=== PATIENT | male | born 1960 | race Caucasian/White ===

== ENCOUNTER 2018-09-10 09:55 | Observation (INO) | payer OTHER ==
[2018-09-10] MEDS ORDERED: IPRATROPIUM-ALBUTEROL 3 ML NEB INHALATION STA ×2 (10:25→13:49)
[2018-09-10] MEDS ORDERED: SODIUM CHLORIDE 0.9% 1,000 ML IV STA (10:25)
[2018-09-10] MEDS ORDERED: methylPREDNISolone SOD SUCCI 125 MG/2 ML VIAL IV STA (10:26)
[2018-09-10] MEDS ORDERED: cefTRIAXone IN SWFI 1,000 MG/10 ML SYRINGE IVP STA (10:27)
--- NOTE | 2018-09-10 10:29 | ED ---
General Adult HPI - General Source: patient, RN notes reviewed, old records reviewed Mode of arrival: ambulatory Limitations: no limitations <Luna Case - Last Filed: 09/10/18 13:37> <Rafa Perez - Last Filed: 09/10/18 13:59> - General Chief complaint: Shortness of Breath Stated complaint: SOB Time Seen by Provider: 09/10/18 10:19 - History of Present Illness Initial comments: Patient is a 58-year-old male who presents emergency department today with complaints of shortness of breath for the past 2 days. Patient reports he's had a productive cough with yellow-green sputum. He reports he is a previous heavy smoker. He quit approximately 3 months ago. Patient states that he is also been off of his blood pressure medication inhalers and anxiety medication for the past 3 months and sees him follow up with a new doctor after his previous one retired. Patient states that he has had fevers and chills. He denies any specific chest pain. Patient states that he has had no nausea or vomiting, leg swelling. Past medical history for TIA. He is not on any blood thinners at this time. (Luna Case) - Related Data Home Medications Medication Instructions Recorded Confirmed No Known Home Medications 09/10/18 09/10/18 Allergies Allergy/AdvReac Type Severity Reaction Status Date / Time No Known Allergies Allergy Verified 09/10/18 10:35 Review of Systems ROS Other: All systems not noted in ROS Statement are negative. <Luna Case - Last Filed: 09/10/18 13:37> ROS Other: All systems not noted in ROS Statement are negative. <Rafa Perez - Last Filed: 09/10/18 13:59> ROS Statement: Those systems with pertinent positive or pertinent negative responses have been documented in the HPI. Past Medical History Past Medical History: No Reported History History of Any Multi-Drug Resistant Organisms: None Reported Past Surgical History: No Surgical Hx Reported Past Psychological History: Anxiety Smoking Status: Former smoker Past Alcohol Use History: Daily, Heavy Past Drug Use History: None Reported <Luna Case - Last Filed: 09/10/18 13:37> General Exam Limitations: no limitations General appearance: alert, in no apparent distress Head exam: Present: atraumatic, normocephalic, normal inspection Eye exam: Present: normal appearance, PERRL, EOMI. Absent: scleral icterus, conjunctival injection, periorbital swelling ENT exam: Present: normal exam, mucous membranes moist Neck exam: Present: normal inspection. Absent: tenderness, meningismus, lymphadenopathy Respiratory exam: Present: wheezes, rhonchi. Absent: normal lung sounds bilaterally, respiratory distress, rales, stridor Cardiovascular Exam: Present: regular rate, normal rhythm, normal heart sounds. Absent: systolic murmur, diastolic murmur, rubs, gallop, clicks GI/Abdominal exam: Present: soft, normal bowel sounds. Absent: distended, tenderness, guarding, rebound, rigid Extremities exam: Present: normal inspection, full ROM, normal capillary refill. Absent: tenderness, pedal edema, joint swelling, calf tenderness Back exam: Present: normal inspection Neurological exam: Present: alert Psychiatric exam: Present: normal affect, normal mood Skin exam: Present: warm, dry, intact, normal color. Absent: rash <Luna Case - Last Filed: 09/10/18 13:37> <Rafa Perez - Last Filed: 09/10/18 13:59> - General Exam Comments Initial Comments: 58-year-old male. Alert and oriented. No significant distress. (Luna Case) Vital Signs 09/10/18 09/10/18 09/10/18 10:12 10:36 10:58 Temperature 97.9 F Pulse Rate 87 74 77 Respiratory 24 Rate Blood Pressure 141/98 O2 Sat by Pulse 88 L Oximetry 09/10/18 09/10/18 09/10/18 12:00 12:20 13:00 Temperature Pulse Rate 104 H 101 H 96 Respiratory 21 24 21 Rate Blood Pressure 151/92 130/93 142/98 O2 Sat by Pulse 90 L 90 L 93 L Oximetry 09/10/18 09/10/18 09/10/18 13:20 13:39 13:40 Temperature 98.2 F Pulse Rate 91 75 Respiratory 21 18 Rate Blood Pressure 151/97 O2 Sat by Pulse 94 L 94 L Oximetry EKG Findings - EKG Comments: EKG Findings:: EKG performed at 1127 2 sinus rhythm with marked sinus arrhythmia , right bundle branch block. Abnormal EKG noted. Jugular rate of 93 beats were minute. PA interval is 160 ms. QR adventist 124 ms. QT QTc is 382/474 ms. <Luna Case - Last Filed: 09/10/18 13:37> Medical Decision Making - Lab Data Result diagrams: 09/10/18 11:45 09/10/18 11:45 - Radiology Data Radiology results: report reviewed <Luna Case - Last Filed: 09/10/18 13:37> - Lab Data Result diagrams: 09/10/18 11:45 09/10/18 11:45 <Rafa Perez - Last Filed: 09/10/18 13:59> - Medical Decision Making Patient is a 58-year-old male process returns today with a few days of worsening cough congestion. Previous history smoker. Patient answers department hypoxic 88% on room air. He started on nasal cannula oxygen. Patient was given double DuoNeb treatment has some improvement but multiple coughing fits. Patient labwork was reviewed. White blood cell count was normal. Lactic acid is elevated at 3.1. With tachycardia and hypoxia and chest x-ray showing evidence of early pneumonia Patient does meet criteria for sepsis. Patient was given 1 g of Rocephin. At this time we will admit the Patient with COPD protocol pneumonia protocol and breathing treatments. ( Luna Case) Case discussed with practitioner Evie. Case also discussed with Dr. Stuart, who will admit for hospital call. (Rafa Perez) - Lab Data Lab Results 09/10/18 09/10/18 09/10/18 Range/Units 11:45 11:45 11:45 WBC 6.5 (3.8-10.6) k/uL RBC 4.73 (4.30-5.90) m/uL Hgb 15.3 (13.0-17.5) gm/dL Hct 45.7 (39.0-53.0) % MCV 96.7 (80.0-100.0) fL MCH 32.3 (25.0-35.0) pg MCHC 33.4 (31.0-37.0) g/dL RDW 13.2 (11.5-15.5) % Plt Count 272 (150-450) k/uL Neutrophils % 73 % Lymphocytes % 19 % Monocytes % 5 % Eosinophils % 2 % Basophils % 0 % Neutrophils # 4.7 (1.3-7.7) k/uL Lymphocytes # 1.2 (1.0-4.8) k/uL Monocytes # 0.3 (0-1.0) k/uL Eosinophils # 0.1 (0-0.7) k/uL Basophils # 0.0 (0-0.2) k/uL PT 10.3 (9.0-12.0) sec INR 1.0 (<1.2) APTT 24.8 (22.0-30.0) sec Sodium 142 (137-145) mmol/L Potassium 4.3 (3.5-5.1) mmol/L Chloride 105 (98-107) mmol/L Carbon Dioxide 25 (22-30) mmol/L Anion Gap 12 mmol/L BUN 13 (9-20) mg/dL Creatinine 0.62 L (0.66-1.25) mg/dL Est GFR (CKD-EPI)AfAm >90 (>60 ml/min/1.73 sqM) Est GFR (CKD-EPI)NonAf >90 (>60 ml/min/1.73 sqM) Glucose 106 H (74-99) mg/dL Plasma Lactic Acid Chepe (0.7-2.0) mmol/L Calcium 9.3 (8.4-10.2) mg/dL Magnesium 2.1 (1.6-2.3) mg/dL Total Bilirubin 0.7 (0.2-1.3) mg/dL AST 15 L (17-59) U/L ALT 27 (21-72) U/L Alkaline Phosphatase 98 (38-126) U/L Troponin I (0.000-0.034) ng/mL Total Protein 7.2 (6.3-8.2) g/dL Albumin 4.0 (3.5-5.0) g/dL Influenza Type A RNA (Not Detectd) Influenza Type B (PCR) (Not Detectd) 09/10/18 09/10/18 09/10/18 Range/Units 11:45 11:45 13:17 WBC (3.8-10.6) k/uL RBC (4.30-5.90) m/uL Hgb (13.0-17.5) gm/dL Hct (39.0-53.0) % MCV (80.0-100.0) fL MCH (25.0-35.0) pg MCHC (31.0-37.0) g/dL RDW (11.5-15.5) % Plt Count (150-450) k/uL Neutrophils % % Lymphocytes % % Monocytes % % Eosinophils % % Basophils % % Neutrophils # (1.3-7.7) k/uL Lymphocytes # (1.0-4.8) k/uL Monocytes # (0-1.0) k/uL Eosinophils # (0-0.7) k/uL Basophils # (0-0.2) k/uL PT (9.0-12.0) sec INR (<1.2) APTT (22.0-30.0) sec Sodium (137-145) mmol/L Potassium (3.5-5.1) mmol/L Chloride (98-107) mmol/L Carbon Dioxide (22-30) mmol/L Anion Gap mmol/L BUN (9-20) mg/dL Creatinine (0.66-1.25) mg/dL Est GFR (CKD-EPI)AfAm (>60 ml/min/1.73 sqM) Est GFR (CKD-EPI)NonAf (>60 ml/min/1.73 sqM) Glucose (74-99) mg/dL Plasma Lactic Acid Chepe 3.0 H* (0.7-2.0) mmol/L Calcium (8.4-10.2) mg/dL Magnesium (1.6-2.3) mg/dL Total Bilirubin (0.2-1.3) mg/dL AST (17-59) U/L ALT (21-72) U/L Alkaline Phosphatase (38-126) U/L Troponin I <0.012 (0.000-0.034) ng/mL Total Protein (6.3-8.2) g/dL Albumin (3.5-5.0) g/dL Influenza Type A RNA Not Detected (Not Detectd) Influenza Type B (PCR) Not Detected (Not Detectd) - Radiology Data Chest x-ray shows COPD patchy perihilar changes may be in the bases atelectasis or early infiltrate. (Luna Case) Disposition Is patient prescribed a controlled substance at d/c from ED?: No Time of Disposition: 13:39 <Luna Case - Last Filed: 09/10/18 13:37> <Rafa Perez - Last Filed: 09/10/18 13:59> Clinical Impression: Sepsis, Pneumonia, COPD (chronic obstructive pulmonary disease) Disposition: ADMITTED IP TO THIS HOSP Condition: Stable Referrals: None,Stated [Primary Care Provider] - 1-2 days
[2018-09-10 12:08] LABS: Basophils % (A) 0 %; Eosinophils # (A) 0.1 k/uL (0-0.7); Eosinophils % (A) 2 %; HCT 45.7 % (39.0-53.0); HGB 15.3 gm/dL (13.0-17.5); Lymphocytes # (A) 1.2 k/uL (1.0-4.8); Lymphocytes % (A) 19 %; MCH 32.3 pg (25.0-35.0); MCHC 33.4 g/dL (31.0-37.0); MCV 96.7 fL (80.0-100.0); Mean Platelet Volume 7.6; Monocytes # (A) 0.3 k/uL (0-1.0); Monocytes % (A) 5 %; Neutrophils # (A) 4.7 k/uL (1.3-7.7); Neutrophils % (A) 73 %; Platelet Count 272 k/uL (150-450); RBC 4.73 m/uL (4.30-5.90); RDW 13.2 % (11.5-15.5); WBC 6.5 k/uL (3.8-10.6)
[2018-09-10 12:11] LABS: Partial Thromboplastin Time 24.8 sec (22.0-30.0); Prothrombin Time 10.3 sec (9.0-12.0)
[2018-09-10 12:15] LABS: ALT 27 U/L (21-72); AST 15 U/L (17-59); Alkaline Phosphatase 98 U/L (38-126); Anion Gap 12 mmol/L; Blood Urea Nitrogen 13 mg/dL (9-20); Calcium 9.3 mg/dL (8.4-10.2); Carbon Dioxide 25 mmol/L (22-30); Chloride 105 mmol/L (98-107); Glucose 106 mg/dL (74-99); Magnesium 2.1 mg/dL (1.6-2.3); Potassium 4.3 mmol/L (3.5-5.1); Sodium 142 mmol/L (137-145); Total Bilirubin 0.7 mg/dL (0.2-1.3); Total Protein 7.2 g/dL (6.3-8.2)
--- NOTE | 2018-09-10 12:24 | XR ---
EXAMINATION TYPE: XR chest 2V DATE OF EXAM: 09/10/2018 COMPARISON: 12/31/2012 TECHNIQUE: PA and lateral views submitted. HISTORY: Difficulty breathing FINDINGS: The lungs are clear and there is no pneumothorax, pleural effusion, or focal pneumonia. Hyperinflat ion suggests COPD. Patchy perihilar changes are noted on the right previous trauma the right clavicle noted displacement. Degenerative change of the spine.. IMPRESSION: 1. COPD. Patchy right perihilar changes may been the basis of atelectasis or early infiltrate correla te clinically.
[2018-09-10] MEDS ORDERED: ACETAMINOPHEN TAB 500 MG TAB PO STA (13:00)
[2018-09-10] MEDS ORDERED: SODIUM CHLORIDE 0.9% 1,000 ML IV ONE (13:00)
[2018-09-10] MEDS ORDERED: IBUPROFEN 600 MG TAB PO STA (13:00)
--- NOTE | 2018-09-10 15:03 | P.HPIM ---
History of Present Illness 58-year-old pleasant gentleman came in with compensative for shortness of breath severe wheezing which improved now found to be in COPD exacerbation patient has significant improvement since his arrival to ER. Patient was started on IV steroids which I'll cut it down. Patient is comparing of cough without any significant sputum production patient quit smoking about a month ago. Patient is a denied using any oxygen at home. Patient denied any fever chills patient doesn't have any leukocytosis. Chest x-ray showed some patchy suspicious infiltrate although patient clinically doesn't have any pneumonia. Rocephin will be discontinued and azithromycin will be continued Review of Systems REVIEW OF SYSTEMS: CONSTITUTIONAL: No fever, no malaise, no fatigue. HEENT: No recent visual problems or hearing problems. Denied any sore throat. CARDIOVASCULAR: No chest pain, orthopnea, PND, no palpitations, no syncope. PULMONARY: as mentioned in HPI GASTROINTESTINAL: No diarrhea, no nausea, no vomiting, no abdominal pain. NEUROLOGICAL: No headaches, no weakness, no numbness. HEMATOLOGICAL: Denies any bleeding or petechiae. GENITOURINARY: Denies any burning micturition, frequency, or urgency. MUSCULOSKELETAL/RHEUMATOLOGICAL: Denies any joint pain, swelling, or any muscle pain. ENDOCRINE: Denies any polyuria or polydipsia. The rest of the 14-point review of systems is negative. Past Medical History Past Medical History: No Reported History History of Any Multi-Drug Resistant Organisms: None Reported Past Surgical History: No Surgical Hx Reported Past Psychological History: Anxiety Smoking Status: Former smoker Past Alcohol Use History: Daily, Heavy Past Drug Use History: None Reported Medications and Allergies Home Medications Medication Instructions Recorded Confirmed Type No Known Home Medications 09/10/18 09/10/18 History Allergies Allergy/AdvReac Type Severity Reaction Status Date / Time No Known Allergies Allergy Verified 09/10/18 10:35 Physical Exam Vitals: Vital Signs Temp Pulse Resp BP Pulse Ox 09/10/18 13:40 75 18 94 L 09/10/18 13:39 98.2 F 09/10/18 13:20 91 21 151/97 94 L 09/10/18 13:00 96 21 142/98 93 L 09/10/18 12:20 101 H 24 130/93 90 L 09/10/18 12:00 104 H 21 151/92 90 L 09/10/18 10:58 77 09/10/18 10:36 74 09/10/18 10:12 97.9 F 87 24 141/98 88 L Intake and Output 09/10/18 09/10/18 09/10/18 06:59 14:59 22:59 Other: Weight 68.039 kg PHYSICAL EXAMINATION: GENERAL: The patient is alert and oriented x3, not in any acute distress. Well developed, well nourished. HEENT: Pupils are round and equally reacting to light. EOMI. No scleral icterus. No conjunctival pallor. Normocephalic, atraumatic. No pharyngeal erythema. No thyromegaly. CARDIOVASCULAR: S1 and S2 present. No murmurs, rubs, or gallops. PULMONARY: minimal expiratory wheezing fairly good air entry bilateral lung jeffrey no crackles were appreciated no bronchophony or egophony. ABDOMEN: Soft, nontender, nondistended, normoactive bowel sounds. No palpable organomegaly. MUSCULOSKELETAL: No joint swelling or deformity. EXTREMITIES: No cyanosis, clubbing, or pedal edema. NEUROLOGICAL: Gross neurological examination did not reveal any focal deficits. SKIN: No rashes. Results CBC & Chem 7: 09/10/18 11:45 09/10/18 11:45 Labs: Abnormal Lab Results - Last 24 Hours (Table) 09/10/18 09/10/18 Range/Units 11:45 11:45 Creatinine 0.62 L (0.66-1.25) mg/dL Glucose 106 H (74-99) mg/dL Plasma Lactic Acid Chepe 3.0 H* (0.7-2.0) mmol/L AST 15 L (17-59) U/L Assessment and Plan Plan: -acute hypercapnic respiratory failure secondary to COPD exacerbation patient is already feeling better patient probably can be switched to oral steroids and can be discharged tomorrow patient does not have any symptoms of flu.my suspicion of pneumonia is extremely low clinically. -Tracheobronchitis -Nicotine abuse recently quit smoking. -anxiety disorder
[2018-09-10] MEDS ORDERED: hydrALAZINE HCL 20 MG/ML 1 ML VIAL IVP STA (15:15)
[2018-09-10] MEDS: SODIUM CHLORIDE 0.9% 1,000 ML IV SCH (16:47)
[2018-09-10] MEDS ORDERED: methylPREDNISolone SOD SUCCI 125 MG/2 ML VIAL IV SCH (18:00)
[2018-09-10] MEDS: BUDESONIDE 0.5 MG/2 ML NEBU INHALATION SCH (19:32)
[2018-09-10] MEDS: IPRATROPIUM-ALBUTEROL 3 ML NEB INHALATION PRN (19:32)
[2018-09-10] MEDS: guaiFENesin 600 MG TABLET.ER PO SCH (20:54)
[2018-09-10] MEDS: methylPREDNISolone SOD SUCCI 40 MG/ML 1 ML VIAL IV SCH (20:54)
[2018-09-10 21:05] LABS: Glucose,Whole Blood 204 mg/dL (75-99)
[2018-09-11] MEDS: SODIUM CHLORIDE 0.9% 1,000 ML IV SCH ×3 (01:14→20:44)
[2018-09-11 07:07] LABS: Glucose,Whole Blood 108 mg/dL (75-99)
[2018-09-11] MEDS: IPRATROPIUM-ALBUTEROL 3 ML NEB INHALATION PRN ×3 (08:02→19:46)
[2018-09-11] MEDS: BUDESONIDE 0.5 MG/2 ML NEBU INHALATION SCH ×2 (08:02→19:46)
[2018-09-11] MEDS: guaiFENesin 600 MG TABLET.ER PO SCH ×2 (08:20→20:43)
[2018-09-11] MEDS: methylPREDNISolone SOD SUCCI 40 MG/ML 1 ML VIAL IV SCH ×2 (08:20→20:43)
[2018-09-11] MEDS: AZITHROMYCIN 500 MG TAB PO SCH (08:20)
[2018-09-11 11:48] LABS: Glucose,Whole Blood 119 mg/dL (75-99)
--- NOTE | 2018-09-11 14:17 | P.CNPUL ---
History of Present Illness Consult date: 09/11/18 Requesting physician: Sunni Stuart Reason for consult: dyspnea, cough Chief complaint: Dyspnea, cough, wheezing, congestion History of present illness: This 58-year-old white male patient who does not have a primary care physician , presented to the emergency department on 09/02/2018 with complaints of shortness of breath, productive cough with yellow-green sputum, chest congestion for the past 2 days. Patient has a long history of smoking, he quit smoking approximately a month ago. Patient carries a 41 year smoking history of at least a pack a day. Patient has a history of hypertension, childhood asthma, and anxiety. His medical doctor had retired, and patient has been out of his blood pressure medication, inhalers, and anxiety medications. Patient reports fevers and chills, denies any chest pain, denies any hemoptysis, no nausea, vomiting and diarrhea, no lower extremity swelling. 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 He denies any history of EtOH, or substance abuse. Chest x-ray was completed and showed COPD, no patchy right perihilar changes most likely related to atelectasis, doubt pneumonia. Labs were negative for any leukocytosis, white blood cell count of 6.5, hemoglobin of 15.3, coagulation profile was within normal limits, electrolytes and renal profile were unremarkable. lactic acid was elevated at 3.0 on admission. Troponin was negative 1, influenza screen was negative. Patient has been afebrile, normotensive, not tachycardic, he was hypoxemic on admission, with a pulse ox of 88% on room air, currently he is on supplemental oxygen 4 L per nasal cannula and pulse ox is 95%. Patient is sitting up on the edge of the bed , in no acute distress, he states his breathing is improving, he has been fluid resuscitated with 2 L of 0.9 normal saline to be fluid boluses, and maintenance IV fluids are infusing at a rate of 100 ML per hour, he is on nebulized bronchodilators, empiric antibiotics in the form of Zithromax and Rocephin, IV Solu-Medrol. Review of Systems All systems: negative Constitutional: Denies chills, Denies fever Eyes: denies blurred vision, denies pain Ears, nose, mouth and throat: Denies headache, Denies sore throat Cardiovascular: Denies chest pain, Denies shortness of breath Respiratory: Reports congestion, Reports dyspnea, Reports wheezing, Denies cough Gastrointestinal: Denies abdominal pain, Denies diarrhea, Denies nausea, Denies vomiting Musculoskeletal: Denies myalgias Integumentary: Denies pruritus, Denies rash Neurological: Denies numbness, Denies weakness Psychiatric: Denies anxiety, Denies depression Endocrine: Denies fatigue, Denies weight change Past Medical History Past Medical History: No Reported History History of Any Multi-Drug Resistant Organisms: None Reported Past Surgical History: No Surgical Hx Reported Past Anesthesia/Blood Transfusion Reactions: No Reported Reaction Past Psychological History: Anxiety Smoking Status: Former smoker Past Alcohol Use History: Daily, Heavy Past Drug Use History: None Reported Medications and Allergies Home Medications Medication Instructions Recorded Confirmed Type No Known Home Medications 09/10/18 09/10/18 History Allergies Allergy/AdvReac Type Severity Reaction Status Date / Time No Known Allergies Allergy Verified 09/10/18 10:35 Physical Exam Vitals: Vital Signs Temp Pulse Pulse Resp BP BP Pulse Ox 09/11/18 11:48 92 09/11/18 11:39 88 09/11/18 08:22 88 09/11/18 08:02 88 09/11/18 07:26 97.9 F 84 168/84 95 09/10/18 23:50 97.5 F L 66 17 155/90 98 09/10/18 19:44 96 09/10/18 19:35 97.6 F 106 H 17 146/85 94 L 09/10/18 19:34 92 09/10/18 15:58 97.6 F 92 16 152/90 95 09/10/18 15:22 95 09/10/18 15:16 98.2 F 09/10/18 15:00 76 20 156/92 97 Intake and Output 09/10/18 09/11/18 09/11/18 22:59 06:59 14:59 Intake Total 440 Balance 440 Intake: Oral 440 Other: # Voids 2 1 1 GENERAL EXAM: Alert, pleasant thin white male comfortable in no apparent distress. HEAD: Normocephalic/atraumatic. EYES: Normal reaction of pupils, equal size. Conjunctiva pink, sclera white. NOSE: Clear with pink turbinates. THROAT: No erythema or exudates. NECK: No masses, no JVD, no thyroid enlargement, no adenopathy. CHEST: No chest wall deformity. Symmetrical expansion. LUNGS: Equal air entry with diffuse wheezes, diminished breath sounds CVS: Regular rate and rhythm, normal S1 and S2, no gallops, no murmurs, no rubs ABDOMEN: Soft, nontender. No hepatosplenomegaly, normal bowel sounds, no guarding or rigidity. EXTREMITIES: No clubbing, no edema, no cyanosis, 2+ pulses and upper and lower extremities. MUSCULOSKELETAL: Muscle strength and tone normal. SPINE: No scoliosis or deformity SKIN: No rashes CENTRAL NERVOUS SYSTEM: Alert and oriented -3. No focal deficits, tone is normal in all 4 extremities. PSYCHIATRIC: Alert and oriented -3. Appropriate affect. Intact judgment and insight. Results - Laboratory Findings CBC and BMP: 09/10/18 11:45 09/10/18 11:45 PT/INR, D-dimer PT 10.3 sec (9.0-12.0) 09/10/18 11:45 INR 1.0 (<1.2) 09/10/18 11:45 Abnormal lab findings: Abnormal Labs 09/10/18 09/10/18 09/10/18 11:45 11:45 16:36 Creatinine 0.62 L Glucose 106 H POC Glucose (mg/dL) Plasma Lactic Acid Chepe 3.0 H* 2.6 H* AST 15 L 09/10/18 09/11/18 09/11/18 20:53 06:55 11:11 Creatinine Glucose POC Glucose (mg/dL) 204 H 108 H 119 H Plasma Lactic Acid Chepe AST - Diagnostic Findings Chest x-ray: report reviewed, image reviewed Additional studies: EKG reviewed Assessment and Plan Plan: Assessment: #1. Acute hypoxemic respiratory failure related to acute exacerbation of COPD and tracheobronchitis, chest x-ray did not show any acute process #2. Lactic acidosis likely related to dehydration and intravascular volume depletion, with IV hydration #3. COPD, and the severity of which is unknown at this time #4. History of nicotine dependence, patient carries a [id number] smoking history, quit smoking a month ago #5. Hypertension #6. Anxiety And: Continue current medical treatment, IV steroids, nebulized bronchodilators, Zithromax and Rocephin, patient was fluid resuscitated, lactic acid improved, no hypotension, no fever or chills, influenza screen was negative, he has started to feel better, anticipate further improvement, came to follow I performed a history & physical examination of the patient and discussed their management with my nurse practitioner, Ann Dejesus. I reviewed the nurse practitioner's note and agree with the documented findings and plan of care. Lung sounds are positive for diffuse wheezes throughout the lung jeffrey. The findings and the impression was discussed with the patient. I attest to the documentation by the nurse practitioner. Time with Patient: Greater than 30
[2018-09-11 16:18] LABS: Glucose,Whole Blood 105 mg/dL (75-99)
--- NOTE | 2018-09-11 17:15 | P.PN ---
Subjective Progress Note Date: 09/11/18 Interval history:58-year-old pleasant gentleman came in with compensative for shortness of breath severe wheezing which improved now found to be in COPD exacerbation patient has significant improvement since his arrival to ER. Patient was started on IV steroids which I'll cut it down. Patient is comparing of cough without any significant sputum production patient quit smoking about a month ago. Patient is a denied using any oxygen at home. Patient denied any fever chills patient doesn't have any leukocytosis. Chest x- ray showed some patchy suspicious infiltrate although patient clinically doesn' t have any pneumonia. Rocephin will be discontinued and azithromycin will be continued 09/11/2018 status post fluid boluses in addition to maintenance IV fluid hydration with significant improvement in plasma lactic acid, down to 1.6. Continues on nebulized bronchodilators, IV steroids, Zithromax, Rocephin. No tachycardia. Hypoxic, requiring 4 L nasal cannula O2 to maintain pulse ox in the mid 90s. Negative for influenza. Review of Systems REVIEW OF SYSTEMS: CONSTITUTIONAL: No fever, no malaise, no fatigue. HEENT: No recent visual problems or hearing problems. Denied any sore throat. CARDIOVASCULAR: No chest pain, orthopnea, PND, no palpitations, no syncope. PULMONARY: as mentioned in HPI GASTROINTESTINAL: No diarrhea, no nausea, no vomiting, no abdominal pain. NEUROLOGICAL: No headaches, no weakness, no numbness. HEMATOLOGICAL: Denies any bleeding or petechiae. GENITOURINARY: Denies any burning micturition, frequency, or urgency. MUSCULOSKELETAL/RHEUMATOLOGICAL: Denies any joint pain, swelling, or any muscle pain. ENDOCRINE: Denies any polyuria or polydipsia. The rest of the 14-point review of systems is negative. Active Medications Albuterol/Ipratropium (Duoneb 0.5 Mg-3 Mg/3 Ml Soln) 3 ml INHALATION RT-Q4H PRN PRN Reason: Shortness Of Breath Or Wheezing Last Admin: 09/11/18 11:39 Dose: 3 ml Azithromycin (Zithromax) 500 mg PO DAILY [facility] Last Admin: 09/11/18 08:20 Dose: 500 mg Budesonide (Pulmicort) 0.5 mg INHALATION RT-BID [facility] Last Admin: 09/11/18 08:02 Dose: 0.5 mg Guaifenesin (Mucinex) 1,200 mg PO Q12HR [facility] Last Admin: 09/11/18 08:20 Dose: 1,200 mg Sodium Chloride (Saline 0.9%) 1,000 mls @ 100 mls/hr IV .Q10H [place] Last Admin: 09/11/18 11:40 Dose: 100 mls/hr Methylprednisolone Sodium Succinate (Solu-Medrol) 40 mg IV BID [facility] Last Admin: 09/11/18 08:20 Dose: 40 mg Objective - Vital Signs Vital signs: Vital Signs Temp 97.7 F 09/11/18 14:19 Pulse 75 09/11/18 14:19 Resp 17 09/10/18 23:50 BP 154/81 09/11/18 14:19 Pulse Ox 95 09/11/18 07:26 Intake & Output 09/10/18 09/11/18 09/11/18 18:59 06:59 18:59 Intake Total 1939 Balance 1939 Weight 68.039 kg Intake: Intake, IV Titration 700 Amount Sodium Chloride 0.9% 1, 700 000 ml @ 100 mls/hr IV . Q10H [facility] Rx#:[id number] Oral 1240 Other: # Voids 1 1 - Exam EXAMINATION: GENERAL: The patient is alert and oriented x3, not in any acute distress. Well developed, well nourished. HEENT: Pupils are round and equally reacting to light. EOMI. No scleral icterus. No conjunctival pallor. Normocephalic, atraumatic. CARDIOVASCULAR: S1 and S2 present. No murmurs, rubs, or gallops. PULMONARY: Bilaterally Diminished breath sounds with minimal expiratory wheezing. ABDOMEN: Soft, nontender, nondistended, normoactive bowel sounds. No palpable organomegaly. MUSCULOSKELETAL: No joint swelling or deformity. EXTREMITIES: No cyanosis, clubbing, or pedal edema. NEUROLOGICAL: Gross neurological examination did not reveal any focal deficits. SKIN: No rashes. - Labs CBC & Chem 7: 09/10/18 11:45 09/10/18 11:45 Labs: Abnormal Lab Results - Last 24 Hours (Table) 09/10/18 09/10/18 09/11/18 Range/Units 16:36 20:53 06:55 POC Glucose (mg/dL) 204 H 108 H (75-99) mg/dL Plasma Lactic Acid Chepe 2.6 H* (0.7-2.0) mmol/L 09/11/18 09/11/18 Range/Units 11:11 16:16 POC Glucose (mg/dL) 119 H 105 H (75-99) mg/dL Plasma Lactic Acid Chepe (0.7-2.0) mmol/L Microbiology - Last 24 Hours (Table) 09/10/18 11:45 Blood Culture - Preliminary Blood No Growth after 24 hours Assessment and Plan Assessment: -acute hypoxic, hypercapnic respiratory failure secondary to COPD exacerbation. No pneumonia as per pulmonary. -Tracheobronchitis -Nicotine abuse recently quit smoking. -anxiety disorder -Lactic acidosis secondary to intravascular volume depletion, improved with IV hydration Plan: Continue current medication regime ,monitoring and symptomatic treatment. Maintain nebulized bronchodilators, IV steroids, Zithromax, Rocephin. Gentle IV fluid hydration. Improved ambulation as tolerated. Continue weaning down oxygen as per parameters. The impression and plan of care has been dictated as directed. : I performed a history and examination of this patient, discussed the same with the dictator. I agree with the dictator's note ,documented as a scribe. Any additional findings or plans will be noted.
--- NOTE | 2018-09-11 17:28 | P.GSCN ---
History of Present Illness Consult date: 09/11/18 Reason for Consult: Sebaceous cyst History of present illness: 58-year-old male admitted with pneumonia. Patient was noted to have a large cystic lesion involving the right cheek. Patient states this is been there since he was a child and gradually increased in size. No pain. No drainage. He is not interested in any surgical treatment of that area. Review of Systems The patient denies any acute changes in vision or hearing, no dysphagia or odynophagia, no chest pain, no dysuria or hematuria, no headache, no runny nose , no rectal bleeding or melena, no unexplained weight loss Past Medical History Past Medical History: No Reported History History of Any Multi-Drug Resistant Organisms: None Reported Past Surgical History: No Surgical Hx Reported Past Anesthesia/Blood Transfusion Reactions: No Reported Reaction Past Psychological History: Anxiety Smoking Status: Former smoker Past Alcohol Use History: Daily, Heavy Past Drug Use History: None Reported Medications and Allergies Home Medications Medication Instructions Recorded Confirmed Type No Known Home Medications 09/10/18 09/10/18 History Allergies Allergy/AdvReac Type Severity Reaction Status Date / Time No Known Allergies Allergy Verified 09/10/18 10:35 Surgical - Exam Vital Signs Temp Pulse Resp BP Pulse Ox 97.9 F 87 24 141/98 88 L 09/10/18 10:12 09/10/18 10:12 09/10/18 10:12 09/10/18 10:12 09/10/18 10:12 Physical exam: General: Well-developed, slightly malnourished HEENT: Normocephalic, sclerae nonicteric, 3 x 2 cm cystic subcutaneous lesion with central puncta right cheek, nontender, no erythema Abdomen: Nontender, nondistended Extremities: No edema Neuro: Alert and oriented Results - Labs 09/10/18 11:45 09/10/18 11:45 Abnormal Lab Results - Last 24 Hours (Table) 09/10/18 09/10/18 09/11/18 Range/Units 16:36 20:53 06:55 POC Glucose (mg/dL) 204 H 108 H (75-99) mg/dL Plasma Lactic Acid Chepe 2.6 H* (0.7-2.0) mmol/L 09/11/18 09/11/18 Range/Units 11:11 16:16 POC Glucose (mg/dL) 119 H 105 H (75-99) mg/dL Plasma Lactic Acid Chepe (0.7-2.0) mmol/L Microbiology - Last 24 Hours (Table) 09/10/18 11:45 Blood Culture - Preliminary Blood No Growth after 24 hours Assessment and Plan (1) Sebaceous cyst Narrative/Plan: Options reviewed with the patient. He is not interested in surgical excision. Patient may follow-up with us or ENT postdischarge if he changes his mind. We' ll sign off. Please call if needed. Current Visit: Yes Status: Acute Code(s): L72.3 - SEBACEOUS CYST SNOMED Code(s): 601470611
[2018-09-11 19:25] LABS: Glucose,Whole Blood 130 mg/dL (75-99)
[2018-09-12 07:15] LABS: Glucose,Whole Blood 114 mg/dL (75-99)
[2018-09-12] MEDS: guaiFENesin 600 MG TABLET.ER PO SCH (08:16)
[2018-09-12] MEDS: AZITHROMYCIN 500 MG TAB PO SCH (08:16)
[2018-09-12] MEDS: methylPREDNISolone SOD SUCCI 40 MG/ML 1 ML VIAL IV SCH (08:17)
[2018-09-12 08:23] VITALS: RESP 17
[2018-09-12 08:26] VITALS: BP 170/90; TEMP 97.6
[2018-09-12] MEDS: BUDESONIDE 0.5 MG/2 ML NEBU INHALATION SCH (08:57)
[2018-09-12] MEDS: IPRATROPIUM-ALBUTEROL 3 ML NEB INHALATION PRN (08:57)
[2018-09-12 09:11] VITALS: PULSE 72
[2018-09-12] MEDS ORDERED: LISINOPRIL 20 MG TAB PO SCH (11:00)
[2018-09-12 11:51] LABS: Glucose,Whole Blood 117 mg/dL (75-99)
--- NOTE | 2018-09-12 13:22 | P.PN ---
Subjective Progress Note Date: 09/12/18 Principal diagnosis: Acute exacerbation of chronic obstructive pulmonary disease This 58-year-old white male patient who does not have a primary care physician , presented to the emergency department on 09/02/2018 with complaints of shortness of breath, productive cough with yellow-green sputum, chest congestion for the past 2 days. Patient has a long history of smoking, he quit smoking approximately a month ago. Patient carries a 41 year smoking history of at least a pack a day. Patient has a history of hypertension, childhood asthma, and anxiety. His medical doctor had retired, and patient has been out of his blood pressure medication, inhalers, and anxiety medications. Patient reports fevers and chills, denies any chest pain, denies any hemoptysis, no nausea, vomiting and diarrhea, no lower extremity swelling. 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 He denies any history of EtOH, or substance abuse. Chest x-ray was completed and showed COPD, no patchy right perihilar changes most likely related to atelectasis, doubt pneumonia. Labs were negative for any leukocytosis, white blood cell count of 6.5, hemoglobin of 15.3, coagulation profile was within normal limits, electrolytes and renal profile were unremarkable. lactic acid was elevated at 3.0 on admission. Troponin was negative 1, influenza screen was negative. Patient has been afebrile, normotensive, not tachycardic, he was hypoxemic on admission, with a pulse ox of 88% on room air, currently he is on supplemental oxygen 4 L per nasal cannula and pulse ox is 95%. Patient is sitting up on the edge of the bed , in no acute distress, he states his breathing is improving, he has been fluid resuscitated with 2 L of 0.9 normal saline to be fluid boluses, and maintenance IV fluids are infusing at a rate of 100 ML per hour, he is on nebulized bronchodilators, empiric antibiotics in the form of Zithromax and Rocephin, IV Solu-Medrol. The patient is seen today 09/12/2018 in follow-up on the regular medical floor. He is awake and alert in no acute distress. He's been up ambulating in the room without any worsening shortness of breath. He is maintaining good O2 saturations in the high 90s on 4 L/m per nasal cannula. He's been afebrile. Somewhat hypertensive. The culture reveals no growth. He is maintained on DuoNeb inhalations, IV Solu-Medrol, empiric antibiotics in the form of azithromycin. Objective - Vital Signs Vital signs: Vital Signs Temp 97.6 F 09/12/18 07:00 Pulse 72 09/12/18 09:10 Resp 17 09/12/18 08:21 BP 170/90 09/12/18 07:00 Pulse Ox 98 09/12/18 08:59 Intake & Output 09/11/18 09/12/18 09/12/18 18:59 06:59 18:59 Intake Total 2340 1050 Balance 2340 1050 Intake: Intake, IV Titration 700 1050 Amount Sodium Chloride 0.9% 1, 700 1050 000 ml @ 100 mls/hr IV . Q10H [place] Rx#:[id number] Oral 1640 Other: # Voids 1 - Exam GENERAL EXAM: Alert, active, comfortable in no apparent distress. 4 L nasal cannula. HEAD: Normocephalic. EYES: Normal reaction of pupils, equal size. NOSE: Clear with pink turbinates. THROAT: No erythema or exudates. NECK: No masses, no JVD. CHEST: No chest wall deformity. LUNGS: Equal air entry with expiratory wheeze, diminished. CVS: S1 and S2 normal with no audible murmur, regular rhythm. ABDOMEN: No hepatosplenomegaly, normal bowel sounds, no guarding or rigidity. SPINE: No scoliosis or deformity SKIN: No rashes CENTRAL NERVOUS SYSTEM: No focal deficits, tone is normal in all 4 extremities. EXTREMITIES: There is no peripheral edema. No clubbing, no cyanosis. Peripheral pulses are intact. - Labs CBC & Chem 7: 09/10/18 11:45 09/10/18 11:45 Labs: Abnormal Lab Results - Last 24 Hours (Table) 09/11/18 09/11/18 09/12/18 Range/Units 16:16 19:24 06:54 POC Glucose (mg/dL) 105 H 130 H 114 H (75-99) mg/dL 09/12/18 Range/Units 11:49 POC Glucose (mg/dL) 117 H (75-99) mg/dL Microbiology - Last 24 Hours (Table) 09/10/18 11:45 Blood Culture - Preliminary Blood No Growth after 24 hours Assessment and Plan Assessment: Assessment: #1. Acute hypoxemic respiratory failure related to acute exacerbation of COPD and tracheobronchitis, chest x-ray did not show any acute process #2. Lactic acidosis likely related to dehydration and intravascular volume depletion, with IV hydration #3. COPD, and the severity of which is unknown at this time #4. History of nicotine dependence, patient carries a [id number] smoking history, quit smoking a month ago #5. Hypertension #6. Anxiety Plan: The patient was seen and evaluated by Dr. Farrell. He is cleared for discharge from the pulmonary standpoint. He will need a prednisone burst and taper, and albuterol for nebulized treatments, Symbicort, complete a course of antibiotics. He is educated again regarding the importance of complete smoking cessation. He should follow-up in our office in 1-2 weeks' time. He did undergo full pulmonary function testing to evaluate the severity of his COPD and make further recommendations regarding maintenance medications. I, the cosigning physician, performed a history & physical examination of the patient. Lungs sounds with faint Wheeze, diminished. Maintaining good O2 saturations in the 90s on 4 L/m per nasal cannula. I discussed the assessment and plan of care with my nurse practitioner, Valerie Tucker. I attest to the above note as dictated by her.
--- NOTE | 2018-09-12 14:49 | P.DS ---
Providers Date of admission: 09/10/18 13:59 Attending physician: Sunni Stuart Consults: 09/10/18 13:39 Consult Physician Stat Consulting Provider: Octavio Farrell Consult Reason/Comments: COPD, pneumonia Do you want consulting provider notified?: Yes 09/11/18 14:56 Consult Physician Routine Consulting Provider: mIer Whitley Consult Reason/Comments: right facial Sebaceous cyst Do you want consulting provider notified?: Yes Primary care physician: Stated None Hospital Course: Interval history:58-year-old pleasant gentleman came in with compensative for shortness of breath severe wheezing which improved now found to be in COPD exacerbation patient has significant improvement since his arrival to ER. Patient was started on IV steroids which I'll cut it down. Patient is comparing of cough without any significant sputum production patient quit smoking about a month ago. Patient is a denied using any oxygen at home. Patient denied any fever chills patient doesn't have any leukocytosis. Chest x- ray showed some patchy suspicious infiltrate although patient clinically doesn' t have any pneumonia. Rocephin will be discontinued and azithromycin will be continued 09/11/2018 status post fluid boluses in addition to maintenance IV fluid hydration with significant improvement in plasma lactic acid, down to 1.6. Continues on nebulized bronchodilators, IV steroids, Zithromax, Rocephin. No tachycardia. Hypoxic, requiring 4 L nasal cannula O2 to maintain pulse ox in the mid 90s. Negative for influenza. 09/12/2018 Patient has significant improvement in his respiratory status clinically doing well not requiring any oxygen at this time patient will be discharged in stable medical condition to home to follow pulmonary and Dr. Claros as an outpatient PHYSICAL EXAMINATION: GENERAL: The patient is alert and oriented x3, not in any acute distress. Well developed, well nourished. HEENT: Pupils are round and equally reacting to light. EOMI. No scleral icterus. No conjunctival pallor. Normocephalic, atraumatic. No pharyngeal erythema. No thyromegaly. CARDIOVASCULAR: S1 and S2 present. No murmurs, rubs, or gallops. PULMONARY: Wheezing improved minimally decreased air entry into bilateral lung jeffrey. ABDOMEN: Soft, nontender, nondistended, normoactive bowel sounds. No palpable organomegaly. MUSCULOSKELETAL: No joint swelling or deformity. EXTREMITIES: No cyanosis, clubbing, or pedal edema. NEUROLOGICAL: Gross neurological examination did not reveal any focal deficits. SKIN: No rashes. Assessment and Plan Assessment: -acute hypoxic, hypercapnic respiratory failure secondary to COPD exacerbation. No pneumonia. -Tracheobronchitis -Nicotine abuse recently quit smoking. -anxiety disorder -Lactic acidosis secondary to intravascular volume depletion, improved with IV hydration -Sebaceous cyst in the right cheek Patient Condition at Discharge: Stable Plan - Discharge Summary Discharge Rx Participant: Yes New Discharge Prescriptions: New Albuterol Inhaler [Ventolin Hfa Inhaler] 1 - 2 puff INHALATION Q6HR PRN #1 inhaler PRN Reason: Shortness Of Breath Or Wheezing Budesonide-Formot 160-4.5 Mcg [Symbicort 160-4.5 Mcg Inhaler] 2 puff INHALATION BID #1 inhaler Doxycycline Monohydrate [Monodox] 100 mg PO BID 3 Days #6 cap predniSONE 10 mg PO DAILY #30 tab Tiotropium [place] [Spiriva] 1 cap INHALATION DAILY #1 device guaiFENesin [Mucinex] 1,200 mg PO Q12HR #20 tablet.er Lisinopril [Zestril] 20 mg PO DAILY #30 tab Ranitidine HCl [Zantac] 150 mg PO BID #30 tab Discharge Medication List Albuterol Inhaler [Ventolin Hfa Inhaler] 1 - 2 puff INHALATION Q6HR PRN #1 inhaler 09/12/18 [Rx] Budesonide-Formot 160-4.5 Mcg [Symbicort 160-4.5 Mcg Inhaler] 2 puff INHALATION BID #1 inhaler 09/12/18 [Rx] Doxycycline Monohydrate [Monodox] 100 mg PO BID 3 Days #6 cap 09/12/18 [Rx] Lisinopril [Zestril] 20 mg PO DAILY #30 tab 09/12/18 [Rx] Ranitidine HCl [Zantac] 150 mg PO BID #30 tab 09/12/18 [Rx] Tiotropium [place] [Spiriva] 1 cap INHALATION DAILY #1 device 09/12/18 [Rx] guaiFENesin [Mucinex] 1,200 mg PO Q12HR #20 tablet.er 09/12/18 [Rx] predniSONE 10 mg PO DAILY #30 tab 09/12/18 [Rx] Follow up Appointment(s)/Referral(s): Tobias Claros MD [REFERRING] - 1 Week None,Stated [Primary Care Provider] - 1-2 days Activity/Diet/Wound Care/Special Instructions: Please contact [facility] in order to find a local primary care physician: # [phone] Discharge Disposition: HOME SELF-CARE
== END 2018-09-12 17:00 | disposition home or self-care (01) ==
LOC: EC 09:55 → INTOOBSV 13:59 → 4SSUR 13:59 → UNDODISIN 09-12 17:00
PROVIDERS: ADMIT Internal Medicine; ATTEND Internal Medicine
DX: J44.1 Chronic obstructive pulmonary disease with (acute) exacerbation (principal); J96.01 Acute respiratory failure with hypoxia; J96.02 Acute respiratory failure with hypercapnia; E87.2 Acidosis; J98.11 Atelectasis; J44.0 Chronic obstructive pulmonary disease with (acute) lower respiratory infection; J20.9 Acute bronchitis, unspecified; F41.9 Anxiety disorder, unspecified; I45.10 Unspecified right bundle-branch block; R00.0 Tachycardia, unspecified; E86.0 Dehydration; I10 Essential (primary) hypertension; L72.3 Sebaceous cyst; Z87.891 Personal history of nicotine dependence; Z86.73 Personal history of transient ischemic attack (TIA), and cerebral infarction without residual deficits
CPT/HCPCS: 96361; 96374; 96375; 99285; 36415; 94640 ×5; 94760 ×2; 93005; 80053; 83605 ×2; 83735; 84484; 85025; 85610; 85730; 87040; 87502; 71046; G0378 ×3; J0360; J2920 ×3; J2930; J0696

== ENCOUNTER 2018-12-19 20:13 | Emergency (ER) | payer OTHER ==
[2018-12-19] MEDS ORDERED: IPRATROPIUM-ALBUTEROL 3 ML NEB INHALATION STA ×2 (21:11→23:33)
[2018-12-19] MEDS ORDERED: KETOROLAC 30 MG/ML 1 ML VIAL IVP STA ×2 (21:11→23:33)
--- NOTE | 2018-12-19 21:16 | ED ---
SOB HPI - General Chief Complaint: Shortness of Breath Stated Complaint: LAN Time Seen by Provider: 12/19/18 20:47 Source: patient, RN notes reviewed Mode of arrival: ambulatory Limitations: no limitations - History of Present Illness Initial Comments: This is a 58-year-old male who states he had gas that shortness of breath about 2-3 days ago it occurred after helping a friend move some boxes he also is had sharp anterior chest pain and some pain in his right deltoid area. This pain does get worse with movement or deep breathing. He denies any fevers chills or sweats he does complain of orthopnea however. He denies any prior history of CHF. No peripheral edema. No trauma no other modifying factors at this time he does occasionally have a cough with no overt phlegm production. MD Complaint: shortness of breath, chest pain - Related Data Previous Rx's Medication Instructions Recorded Albuterol Inhaler [Ventolin Hfa 2 puff INHALATION Q6HR PRN #1 12/20/18 Inhaler] inhaler predniSONE 20 mg PO BID #10 tab 12/20/18 Allergies Allergy/AdvReac Type Severity Reaction Status Date / Time No Known Allergies Allergy Verified 12/19/18 21:32 Review of Systems ROS Statement: Those systems with pertinent positive or pertinent negative responses have been documented in the HPI. ROS Other: All systems not noted in ROS Statement are negative. Past Medical History Past Medical History: No Reported History History of Any Multi-Drug Resistant Organisms: None Reported Past Surgical History: No Surgical Hx Reported Past Anesthesia/Blood Transfusion Reactions: No Reported Reaction Past Psychological History: Anxiety Smoking Status: Former smoker Past Alcohol Use History: Daily, Heavy Past Drug Use History: None Reported General Exam - General Exam Comments Initial Comments: This is a well-developed asthenic appearing male who is awake alert oriented 3 Limitations: no limitations General appearance: alert, in no apparent distress Head exam: Present: atraumatic, normocephalic, normal inspection Eye exam: Present: normal appearance, PERRL, EOMI. Absent: scleral icterus, conjunctival injection, periorbital swelling ENT exam: Present: normal exam, mucous membranes moist Neck exam: Present: normal inspection, full ROM, other (No stridor JVD or bruits). Absent: tenderness, meningismus, lymphadenopathy Respiratory exam: Present: chest wall tenderness, decreased breath sounds. Absent: respiratory distress, wheezes, rales, rhonchi, stridor Cardiovascular Exam: Present: normal rhythm, tachycardia. Absent: systolic murmur, diastolic murmur, rubs, gallop, clicks GI/Abdominal exam: Present: soft, normal bowel sounds. Absent: distended, tenderness, guarding, rebound, rigid Extremities exam: Present: normal inspection, full ROM, tenderness, normal capillary refill. Absent: pedal edema, joint swelling, calf tenderness Back exam: Present: normal inspection Neurological exam: Present: alert, oriented X3, CN II-XII intact Psychiatric exam: Present: normal affect, normal mood Skin exam: Present: warm, dry, intact, normal color. Absent: rash Course Vital Signs 12/19/18 12/19/18 12/19/18 20:37 20:53 21:10 Temperature 98.9 F Pulse Rate 119 H 104 H Respiratory 28 H 19 Rate Blood Pressure 110/70 123/80 115/91 O2 Sat by Pulse 95 93 L 96 Oximetry 12/19/18 12/19/18 12/19/18 21:51 21:59 22:10 Temperature Pulse Rate 113 H 104 H 105 H Respiratory 16 Rate Blood Pressure 99/62 O2 Sat by Pulse 92 L Oximetry 12/19/18 12/19/18 12/19/18 22:40 23:10 23:40 Temperature Pulse Rate 92 90 Respiratory 18 Rate Blood Pressure 92/56 100/66 103/65 O2 Sat by Pulse 94 L 89 L 93 L Oximetry 12/20/18 12/20/18 00:16 00:31 Temperature Pulse Rate 83 82 Respiratory Rate Blood Pressure O2 Sat by Pulse Oximetry Medical Decision Making - Medical Decision Making Reevaluation patient several occasions revealed improvement in his aeration. He will be discharged and placed on medication he does not have an inhaler at home we'll write for 1. - Lab Data Result diagrams: 12/19/18 21:02 12/19/18 21:02 Lab Results 12/19/18 12/19/18 12/19/18 Range/Units 21:02 21:02 21: WBC 6.6 (3.8-10.6) k/uL RBC 4.12 L (4.30-5.90) m/uL Hgb 13.5 (13.0-17.5) gm/dL Hct 40.9 (39.0-53.0) % MCV 99.3 (80.0-100.0) fL MCH 32.6 (25.0-35.0) pg MCHC 32.9 (31.0-37.0) g/dL RDW 12.6 (11.5-15.5) % Plt Count 226 (150-450) k/uL Neutrophils % 63 % Lymphocytes % 25 % Monocytes % 5 % Eosinophils % 5 % Basophils % 0 % Neutrophils # 4.1 (1.3-7.7) k/uL Lymphocytes # 1.7 (1.0-4.8) k/uL Monocytes # 0.3 (0-1.0) k/uL Eosinophils # 0.3 (0-0.7) k/uL Basophils # 0.0 (0-0.2) k/uL PT (9.0-12.0) sec INR (<1.2) APTT (22.0-30.0) sec D-Dimer (<0.60) mg/L FEU Sodium 143 (137-145) mmol/L Potassium 4.3 (3.5-5.1) mmol/L Chloride 111 H (98-107) mmol/L Carbon Dioxide 23 (22-30) mmol/L Anion Gap 9 mmol/L BUN 6 L (9-20) mg/dL Creatinine 0.62 L (0.66-1.25) mg/dL Est GFR (CKD-EPI)AfAm >90 (>60 ml/min/1.73 sqM) Est GFR (CKD-EPI)NonAf >90 (>60 ml/min/1.73 sqM) Glucose 105 H (74-99) mg/dL Calcium 8.6 (8.4-10.2) mg/dL Magnesium 2.1 (1.6-2.3) mg/dL Total Bilirubin 0.2 (0.2-1.3) mg/dL AST 21 (17-59) U/L ALT 18 L (21-72) U/L Alkaline Phosphatase 93 (38-126) U/L Creatine Kinase 163 (55-170) U/L Troponin I (0.000-0.034) ng/mL NT-Pro-B Natriuret Pep 117 pg/mL Total Protein 6.2 L (6.3-8.2) g/dL Albumin 3.8 (3.5-5.0) g/dL 12/19/18 12/19/18 Range/Units 21:02 21:02 WBC (3.8-10.6) k/uL RBC (4.30-5.90) m/uL Hgb (13.0-17.5) gm/dL Hct (39.0-53.0) % MCV (80.0-100.0) fL MCH (25.0-35.0) pg MCHC (31.0-37.0) g/dL RDW (11.5-15.5) % Plt Count (150-450) k/uL Neutrophils % % Lymphocytes % % Monocytes % % Eosinophils % % Basophils % % Neutrophils # (1.3-7.7) k/uL Lymphocytes # (1.0-4.8) k/uL Monocytes # (0-1.0) k/uL Eosinophils # (0-0.7) k/uL Basophils # (0-0.2) k/uL PT 9.7 (9.0-12.0) sec INR 0.9 (<1.2) APTT 25.1 (22.0-30.0) sec D-Dimer 0.57 (<0.60) mg/L FEU Sodium (137-145) mmol/L Potassium (3.5-5.1) mmol/L Chloride (98-107) mmol/L Carbon Dioxide (22-30) mmol/L Anion Gap mmol/L BUN (9-20) mg/dL Creatinine (0.66-1.25) mg/dL Est GFR (CKD-EPI)AfAm (>60 ml/min/1.73 sqM) Est GFR (CKD-EPI)NonAf (>60 ml/min/1.73 sqM) Glucose (74-99) mg/dL Calcium (8.4-10.2) mg/dL Magnesium (1.6-2.3) mg/dL Total Bilirubin (0.2-1.3) mg/dL AST (17-59) U/L ALT (21-72) U/L Alkaline Phosphatase (38-126) U/L Creatine Kinase (55-170) U/L Troponin I <0.012 (0.000-0.034) ng/mL NT-Pro-B Natriuret Pep pg/mL Total Protein (6.3-8.2) g/dL Albumin (3.5-5.0) g/dL - EKG Data -: EKG Interpreted by Me EKG shows normal: sinus rhythm (Sinus tachycardia rate 107 appear interval 158 QRS duration 126 daily since QTC 336/448 left exodeviation right bundle-branch block nonspecific septal configuration) - Radiology Data Radiology results: report reviewed (I did review the imaging and reports no acute findings), image reviewed Disposition Clinical Impression: Acute exacerbation of chronic obstructive airways disease Disposition: HOME SELF-CARE Condition: Good Instructions (If sedation given, give patient instructions): COPD (Chronic Obstructive Pulmonary Disease) (ED) Prescriptions: predniSONE 20 mg PO BID #10 tab Albuterol Inhaler [Ventolin Hfa Inhaler] 2 puff INHALATION Q6HR PRN #1 inhaler PRN Reason: Dyspnea Is patient prescribed a controlled substance at d/c from ED?: No Referrals: None,Stated [Primary Care Provider] - 1-2 days
[2018-12-19 21:21] LABS: Basophils % (A) 0 %; Eosinophils # (A) 0.3 k/uL (0-0.7); Eosinophils % (A) 5 %; HCT 40.9 % (39.0-53.0); HGB 13.5 gm/dL (13.0-17.5); Lymphocytes # (A) 1.7 k/uL (1.0-4.8); Lymphocytes % (A) 25 %; MCH 32.6 pg (25.0-35.0); MCHC 32.9 g/dL (31.0-37.0); MCV 99.3 fL (80.0-100.0); Monocytes # (A) 0.3 k/uL (0-1.0); Monocytes % (A) 5 %; Neutrophils # (A) 4.1 k/uL (1.3-7.7); Neutrophils % (A) 63 %; Platelet Count 226 k/uL (150-450); RBC 4.12 m/uL (4.30-5.90); RDW 12.6 % (11.5-15.5); WBC 6.6 k/uL (3.8-10.6)
[2018-12-19 21:30] LABS: ALT 18 U/L (21-72); AST 21 U/L (17-59); African American GFR (CKD) >90 (>60 ml/min/1.73 sqM); Albumin 3.8 g/dL (3.5-5.0); Alkaline Phosphatase 93 U/L (38-126); Anion Gap 9 mmol/L; Blood Urea Nitrogen 6 mg/dL (9-20); Calcium 8.6 mg/dL (8.4-10.2); Carbon Dioxide 23 mmol/L (22-30); Chloride 111 mmol/L (98-107); Creatine Kinase 163 U/L (55-170); Glucose 105 mg/dL (74-99); Magnesium 2.1 mg/dL (1.6-2.3); Potassium 4.3 mmol/L (3.5-5.1); Sodium 143 mmol/L (137-145); Total Bilirubin 0.2 mg/dL (0.2-1.3); Total Protein 6.2 g/dL (6.3-8.2)
--- NOTE | 2018-12-19 21:40 | XR ---
EXAMINATION TYPE: XR chest 2V DATE OF EXAM: 12/19/2018 COMPARISON: 09/10/2018 HISTORY: Difficulty breathing TECHNIQUE: Frontal and lateral views of the chest are obtained. FINDINGS: Heart and mediastinum are normal. There are some emphysematous changes in the upper lobes. There is mild palmar scarring right upper lobe. There is no pleural effusion. There are no hilar mas ses. Bony thorax is intact. There are chest leads. IMPRESSION: COPD and pulmonary scarring. No acute lung disease. No change.
[2018-12-19 21:43] LABS: D-Dimer 0.57 mg/L FEU (<0.60); INR 0.9 (<1.2); Partial Thromboplastin Time 25.1 sec (22.0-30.0); Prothrombin Time 9.7 sec (9.0-12.0)
[2018-12-19] MEDS ORDERED: methylPREDNISolone SOD SUCCI 125 MG/2 ML VIAL IV STA (23:33)
[2018-12-19 23:56] VITALS: BP 103/65; RESP 18
[2018-12-20 00:31] VITALS: PULSE 82
[2018-12-20 01:19] VITALS: TEMP 98.5
== END 2018-12-20 01:17 | disposition home or self-care (01) ==
LOC: EC 20:13
DX: J44.1 Chronic obstructive pulmonary disease with (acute) exacerbation (principal); Z87.891 Personal history of nicotine dependence
CPT/HCPCS: 36415; 94640 ×2; 85379; 83880; 80053; 82550; 83735; 84484; 85025; 85610; 85730; 71046; 99285; 96374; 96375; 96376; J2930; J1885

== ENCOUNTER 2019-07-27 13:14 | Emergency (ER) | payer OTHER ==
[2019-07-27] MEDS ORDERED: KETOROLAC 30 MG/ML 1 ML VIAL IM STA (14:00)
--- NOTE | 2019-07-27 14:24 | XR ---
EXAMINATION TYPE: XR Hip RT and AP Pelvis DATE OF EXAM: 07/27/2019 COMPARISON: NONE HISTORY: Trauma and pain 2 days prior TECHNIQUE: A single AP view of the pelvis is obtained. Two views of the right hip are obtained. FINDINGS: There is no acute fracture/dislocation evident in the pelvis. The hip and sacroiliac join ts appear symmetric and unremarkable. The overlying soft tissue appears unremarkable. Vascular calci fications noted incidentally. Two views of right hip show no acute fracture or dislocation. No focal lytic or sclerotic lesion see n in the proximal right femur. The overlying soft tissue is unremarkable. IMPRESSION: There is no acute fracture or dislocation in the pelvis or right hip.
[2019-07-27] MEDS ORDERED: MORPHINE SULFATE 4 MG/ML SYRINGE IM STA (15:00)
--- NOTE | 2019-07-27 15:59 | CT ---
EXAMINATION TYPE: CT hip RT wo con DATE OF EXAM: 07/27/2019 COMPARISON: Plain films of 07/27/2019 HISTORY: Fall, right hip pain CT DLP: 319 mGycm Automated exposure control for dose reduction was used. FINDINGS: There is no evidence for right hip fracture. Mild degenerative joint space narrowing. No soft tissue hematoma or soft tissue mass. No abnormal fluid collections. Pelvic structures are unremarkable. IMPRESSION: NO EVIDENCE FOR FRACTURE OR DISLOCATION.
--- NOTE | 2019-07-27 16:42 | ED ---
General Adult HPI - General Chief complaint: Extremity Injury, Lower Stated complaint: Fall hip pain Time Seen by Provider: 07/27/19 13:38 Source: patient, RN notes reviewed Mode of arrival: EMS Limitations: no limitations - History of Present Illness Initial comments: 59-year-old male presents to the emergency department for a chief complaint of right hip pain. This pain has been ongoing since a fall 6 days ago. Patient states that he was carrying a washer when he tripped over a stair and fell on his right hip. Patient has been ambulatory around his house. Patient presents today because the pain does not seem to be improving. He denies pain elsewhere. Denies any abdominal pain. Denies back pain. Did not hit his head.Patient has no other complaints at this time including shortness of breath, chest pain, abdominal pain, nausea or vomiting, headache, or visual changes. - Related Data Previous Rx's Medication Instructions Recorded Albuterol Inhaler [Ventolin Hfa 2 puff INHALATION Q6HR PRN #1 12/20/18 Inhaler] inhaler predniSONE 20 mg PO BID #10 tab 12/20/18 Allergies Allergy/AdvReac Type Severity Reaction Status Date / Time No Known Allergies Allergy Verified 12/19/18 21:32 Review of Systems ROS Statement: Those systems with pertinent positive or pertinent negative responses have been documented in the HPI. ROS Other: All systems not noted in ROS Statement are negative. Past Medical History Past Medical History: Hypertension History of Any Multi-Drug Resistant Organisms: None Reported Past Surgical History: Orthopedic Surgery Additional Past Surgical History / Comment(s): left ankle sx Past Anesthesia/Blood Transfusion Reactions: No Reported Reaction Past Psychological History: Anxiety Smoking Status: Current every day smoker Past Alcohol Use History: Daily, Heavy Past Drug Use History: None Reported General Exam Limitations: no limitations General appearance: alert, in no apparent distress Head exam: Present: atraumatic, normocephalic, normal inspection Eye exam: Present: normal appearance, PERRL, EOMI. Absent: scleral icterus, conjunctival injection, periorbital swelling ENT exam: Present: normal exam, mucous membranes moist Neck exam: Present: normal inspection, full ROM. Absent: tenderness, meningismus, lymphadenopathy Respiratory exam: Present: normal lung sounds bilaterally. Absent: respiratory distress, wheezes, rales, rhonchi, stridor Cardiovascular Exam: Present: regular rate, normal rhythm, normal heart sounds. Absent: systolic murmur, diastolic murmur, rubs, gallop, clicks GI/Abdominal exam: Present: soft, normal bowel sounds. Absent: distended, tenderness, guarding, rebound, rigid Extremities exam: Present: tenderness (Generalized tenderness to the lateral aspect of the right hip. There are no contusions ecchymosis or evidence of trauma on skin exam.), normal capillary refill (Capillary refill is less than 2 seconds, DP pulses 2+ in the right lower extremity.), other (Sensation intact in the right lower extremity.). Absent: full ROM (Limited range motion of the right hip secondary to pain. Patient has about 60 flexion of the right hip.), pedal edema, joint swelling, calf tenderness Course Vital Signs 07/27/19 13:22 Temperature 98 F Pulse Rate 77 Respiratory 20 Rate Blood Pressure 166/89 O2 Sat by Pulse 98 Oximetry Medical Decision Making - Medical Decision Making Neurovascular status intact in the right hip. Pain started 6 days ago after a fall. Patient has been ambulatory at home since that time. X-ray of the right hip shows no acute fracture or dislocation in the pelvis or right hip. I did attend family patient here in the emergency department and he states he cannot and well-nourished hip. Therefore CT was ordered to evaluate for occult fracture. This showed no evidence for fracture or dislocation. Patient will be given starter pack a Tylenol 3 will be discharged home to follow up with orthopedics and primary care. Disposition Clinical Impression: Hip pain, right Disposition: HOME SELF-CARE Condition: Good Additional Instructions: Take Motrin for pain. If pain is severe take Tylenol 3. Do not [address] or operate machinery while taking this. Follow up with orthopedics and primary care in the next couple days. If you have any worsening symptoms return to the emergency department. Is patient prescribed a controlled substance at d/c from ED?: No Referrals: Papa Ling DO [Doctor of Osteopathic Medicine] - 1-2 days Time of Disposition: 16:41
[2019-07-27] MEDS ORDERED: ACET/COD 300 MG/30 MG STARTER PACK 6 TAB BTL PO STA (16:57)
[2019-07-27 17:12] VITALS: BP 130/79; PULSE 80; RESP 18; TEMP 98.4
== END 2019-07-27 16:57 | disposition home or self-care (01) ==
LOC: EC 13:14
DX: M25.551 Pain in right hip (principal); F17.200 Nicotine dependence, unspecified, uncomplicated; W10.9XXA Fall (on) (from) unspecified stairs and steps, initial encounter; Y93.89 Activity, other specified
CPT/HCPCS: 73502; 73700; 99284; 96372 ×2; J2270; J1885

== ENCOUNTER 2019-11-04 13:12 | Emergency (ER) | payer OTHER ==
[2019-11-04 13:24] VITALS: RESP 18; TEMP 97.6
--- NOTE | 2019-11-04 13:32 | ED ---
General Adult HPI - General Chief complaint: Urogenital Stated complaint: UTI Time Seen by Provider: 11/04/19 13:25 Source: patient Mode of arrival: ambulatory - History of Present Illness Initial comments: Dictation was produced using [employer] dictation software. please excuse any grammatical, word or spelling errors. This patient was cared for during a federal and state declared state of emergency secondary to Covid 19 Chief Complaint: 59-year-old male past medical history of hypertension presents with brown urine History of Present Illness: he is a 59-year-old male he is brought in by EMS for urine issues. Patient states he feels well. He has no specific complaints. He states that he had urinated twice today and his urine was brown. He denies any chest pain shortness of breath. No abdominal pain. No nausea vomiting. No shortness of breath. The ROS documented in this emergency department record has been reviewed and confirmed by me. Those systems with pertinent positive or negative responses have been documented in the HPI. All other systems are other negative and/or noncontributory. PHYSICAL EXAM: General Impression: Alert and oriented x3, not in acute distress HEENT: Normocephalic atraumatic, extra-ocular movements intact, pupils equal and reactive to light bilaterally, mucous membranes moist. Cardiovascular: Heart regular rate and rhythm Chest: Able to complete full sentences, no retractions, no tachypnea Abdomen: abdomen soft, non-tender, non-distended, no organomegaly Musculoskeletal: Pulses present and equal in all extremities, no peripheral edema Motor: no focal deficits noted Neurological: CN II-XII grossly intact, no focal motor or sensory deficits noted Skin: Intact with no visualized rashes Psych: Normal affect and mood ED course: 59-year-old male presents with brownish discoloration to his urine. Vital signs upon arrival are within acceptable limits. He has no other complaints. Patient is signed out to Dr. Chao for follow-up for urine studies. Urinalysis obtained. There is 1+ bilirubin. Patient told of these results. He is told to follow-up with his primary care physician. - Related Data Previous Rx's Medication Instructions Recorded Albuterol Inhaler (Bulk) [Ventolin 2 puff INHALATION Q6HR PRN #1 12/20/18 Hfa Inhaler (Bulk)] inhaler predniSONE [Deltasone] 20 mg PO BID #10 tab 12/20/18 Allergies Allergy/AdvReac Type Severity Reaction Status Date / Time No Known Allergies Allergy Verified 11/04/19 13:24 Review of Systems ROS Statement: Those systems with pertinent positive or pertinent negative responses have been documented in the HPI. ROS Other: All systems not noted in ROS Statement are negative. Past Medical History Past Medical History: Hypertension History of Any Multi-Drug Resistant Organisms: None Reported Past Surgical History: Orthopedic Surgery Additional Past Surgical History / Comment(s): left ankle sx Past Anesthesia/Blood Transfusion Reactions: No Reported Reaction Past Psychological History: Anxiety Smoking Status: Current some day smoker Past Alcohol Use History: None Reported, Daily, Heavy Past Drug Use History: None Reported Course Vital Signs 11/04/19 13:21 Temperature 97.6 F Pulse Rate 79 Respiratory 18 Rate Blood Pressure 142/100 O2 Sat by Pulse 95 Oximetry Medical Decision Making - Lab Data Lab Results 11/04/19 Range/Units 14:21 Urine Color Dark Brown Urine Appearance Cloudy (Clear) Urine pH 5.5 (5.0-8.0) Ur Specific [place] 1.025 (1.001-1.035) Urine Protein Trace H (Negative) Urine Glucose (UA) Negative (Negative) Urine Ketones Negative (Negative) Urine Blood Trace H (Negative) Urine Nitrite Negative (Negative) Urine Bilirubin 1+ H (Negative) Urine Urobilinogen 3.0 (<2.0) mg/dL Ur Leukocyte Esterase Negative (Negative) Urine RBC 4 (0-5) /hpf Urine WBC 3 (0-5) /hpf Urine Mucus Rare H (None) /hpf Disposition Clinical Impression: Urine abnormality Disposition: HOME SELF-CARE Condition: Good Instructions (If sedation given, give patient instructions): Hematuria (ED) Is patient prescribed a controlled substance at d/c from ED?: No Referrals: Talisha Conner MD [STAFF PHYSICIAN] - 1-2 days Time of Disposition: 15:24
[2019-11-04 15:15] LABS: Appearance,Urine Cloudy (Clear); Bilirubin,Urine 1+ (Negative); Blood,Urine Trace (Negative); Color,Urine Dark Brown; Glucose,Urine (UA) Negative (Negative); Ketones,Urine Negative (Negative); Leukocyte Esterase,Urine Negative (Negative); Mucus,Urine Rare /hpf; Nitrite,Urine Negative (Negative); PH, Urine 5.5 (5.0-8.0); Protein,Urine Trace (Negative); RBC,Urine 4 /hpf (0-5); Specific Gravity,Urine 1.025 (1.001-1.035); WBC,Urine 3 /hpf (0-5)
[2019-11-04 15:34] VITALS: BP 125/83; PULSE 83
== END 2019-11-04 15:46 | disposition home or self-care (01) ==
LOC: EC 13:12
DX: R82.998 Other abnormal findings in urine (principal); I10 Essential (primary) hypertension; F17.200 Nicotine dependence, unspecified, uncomplicated
CPT/HCPCS: 81001; 99283

== ENCOUNTER 2019-11-08 12:37 | Inpatient (IN) | payer OTHER ==
--- NOTE | 2019-11-08 13:06 | ED ---
General Adult HPI - General Chief complaint: Weakness Stated complaint: Weakness Time Seen by Provider: 11/08/19 12:39 Source: patient, RN notes reviewed, old records reviewed Mode of arrival: ambulatory Limitations: no limitations - History of Present Illness Initial comments: 59 yo with chief complaint of generalized weakness. Patient reports no medical history. He states he was a previous heavy drinker and quit about 3 months ago. He is presenting today by EMS with increased generalized weakness, lower extremity edema and jaundice. He denies any vomiting. Denies diarrhea stating that his bowel movements have been green. He denies fever or chills. He states he's had a wet cough for many months. He does report lower extremity edema whic h is progressed over the past week. Denies focal weakness. Denies chest pain. Denies abdominal pain. - Related Data Home Medications Medication Instructions Recorded Confirmed No Known Home Medications 11/08/19 11/08/19 Allergies Allergy/AdvReac Type Severity Reaction Status Date / Time No Known Allergies Allergy Verified 11/08/19 12:58 Review of Systems ROS Statement: Those systems with pertinent positive or pertinent negative responses have been documented in the HPI. ROS Other: All systems not noted in ROS Statement are negative. Past Medical History Past Medical History: No Reported History, Hypertension History of Any Multi-Drug Resistant Organisms: None Reported Past Surgical History: Orthopedic Surgery Additional Past Surgical History / Comment(s): left ankle sx Past Anesthesia/Blood Transfusion Reactions: No Reported Reaction Past Psychological History: Anxiety Smoking Status: Current some day smoker Past Alcohol Use History: None Reported, Daily, Heavy Past Drug Use History: None Reported General Exam Limitations: no limitations General appearance: alert, in no apparent distress Head exam: Present: atraumatic, normocephalic Eye exam: Present: normal appearance, PERRL, scleral icterus ENT exam: Present: normal exam Neck exam: Present: normal inspection. Absent: tenderness, meningismus Respiratory exam: Present: rales, rhonchi, decreased breath sounds. Absent: respiratory distress Cardiovascular Exam: Present: regular rate, normal rhythm GI/Abdominal exam: Present: soft. Absent: distended, tenderness, guarding Rectal exam: Present: other (Sacral decub) Extremities exam: Present: full ROM, pedal edema Neurological exam: Present: alert, oriented X3, CN II-XII intact. Absent: motor sensory deficit Skin exam: Present: warm, dry, intact, pallor Course Vital Signs 11/08/19 12:51 Temperature 98.1 F Pulse Rate 86 Respiratory 20 Rate Blood Pressure 123/83 O2 Sat by Pulse 97 Oximetry EKG Findings - EKG Comments: EKG Findings:: Right bundle branch block, normal sinus rhythm, rate of 85, OK interval 142, QRS duration 138, QTC 480, no ST segment elevation. Medical Decision Making - Medical Decision Making 59-year-old male presenting with jaundice, generalized weakness. Patient has stable vitals but appears very ill, cachectic. He has bilateral lower extremity swelling. He has mild leukocytosis, hemoglobin 12.2, he has a lactic acid 2.7, hyperbilirubinemia at 6.8 with transaminitis and elevation in alkaline phosphatase. Chest x-ray showing concern for pneumonia as well as mass. Ultrasound has been ordered both of the gallbladder and lower extremities. Patient will require inpatient admission and further evaluation and treatment. He is evaluated by Dr. Meyer in the emergency department, CT chest and pelvis was recommended and this has been ordered. These results are pending. Patient will be admitted to internal medicine with gastroenterology on consult. - Lab Data Result diagrams: 11/08/19 12:42 11/08/19 12:42 Lab Results 11/08/19 11/08/19 11/08/19 Range/Units 12:42 12:42 12:42 WBC 11.9 H (3.8-10.6) k/uL RBC 3.79 L (4.30-5.90) m/uL Hgb 12.2 L (13.0-17.5) gm/dL Hct 36.7 L (39.0-53.0) % MCV 96.9 (80.0-100.0) fL MCH 32.2 (25.0-35.0) pg MCHC 33.3 (31.0-37.0) g/dL RDW 12.9 (11.5-15.5) % Plt Count 299 (150-450) k/uL Neutrophils % 89 % Lymphocytes % 5 % Monocytes % 4 % Eosinophils % 1 % Basophils % 0 % Neutrophils # 10.6 H (1.3-7.7) k/uL Lymphocytes # 0.6 L (1.0-4.8) k/uL Monocytes # 0.4 (0-1.0) k/uL Eosinophils # 0.1 (0-0.7) k/uL Basophils # 0.0 (0-0.2) k/uL PT 11.2 (9.0-12.0) sec INR 1.1 (<1.2) APTT 23.9 (22.0-30.0) sec Sodium 136 L (137-145) mmol/L Potassium 3.7 (3.5-5.1) mmol/L Chloride 100 (98-107) mmol/L Carbon Dioxide 24 (22-30) mmol/L Anion Gap 12 mmol/L BUN 13 (9-20) mg/dL Creatinine 0.49 L (0.66-1.25) mg/dL Est GFR (CKD-EPI)AfAm >90 (>60 ml/min/1.73 sqM) Est GFR (CKD-EPI)NonAf >90 (>60 ml/min/1.73 sqM) Glucose 126 H (74-99) mg/dL Plasma Lactic Acid Chepe (0.7-2.0) mmol/L Calcium 9.6 (8.4-10.2) mg/dL Magnesium 1.9 (1.6-2.3) mg/dL Total Bilirubin 6.8 H (0.2-1.3) mg/dL AST 99 H (17-59) U/L ALT 83 H (4-49) U/L Alkaline Phosphatase 783 H (38-126) U/L Creatine Kinase 68 (55-170) U/L Troponin I (0.000-0.034) ng/mL NT-Pro-B Natriuret Pep pg/mL Total Protein 6.4 (6.3-8.2) g/dL Albumin 3.2 L (3.5-5.0) g/dL Coronavirus (PCR) (Not Detectd) 11/08/19 11/08/19 11/08/19 Range/Units 12:42 12:42 12:42 WBC (3.8-10.6) k/uL RBC (4.30-5.90) m/uL Hgb (13.0-17.5) gm/dL Hct (39.0-53.0) % MCV (80.0-100.0) fL MCH (25.0-35.0) pg MCHC (31.0-37.0) g/dL RDW (11.5-15.5) % Plt Count (150-450) k/uL Neutrophils % % Lymphocytes % % Monocytes % % Eosinophils % % Basophils % % Neutrophils # (1.3-7.7) k/uL Lymphocytes # (1.0-4.8) k/uL Monocytes # (0-1.0) k/uL Eosinophils # (0-0.7) k/uL Basophils # (0-0.2) k/uL PT (9.0-12.0) sec INR (<1.2) APTT (22.0-30.0) sec Sodium (137-145) mmol/L Potassium (3.5-5.1) mmol/L Chloride (98-107) mmol/L Carbon Dioxide (22-30) mmol/L Anion Gap mmol/L BUN (9-20) mg/dL Creatinine (0.66-1.25) mg/dL Est GFR (CKD-EPI)AfAm (>60 ml/min/1.73 sqM) Est GFR (CKD-EPI)NonAf (>60 ml/min/1.73 sqM) Glucose (74-99) mg/dL Plasma Lactic Acid Chepe 2.7 H* (0.7-2.0) mmol/L Calcium (8.4-10.2) mg/dL Magnesium (1.6-2.3) mg/dL Total Bilirubin (0.2-1.3) mg/dL AST (17-59) U/L ALT (4-49) U/L Alkaline Phosphatase (38-126) U/L Creatine Kinase (55-170) U/L Troponin I <0.012 (0.000-0.034) ng/mL NT-Pro-B Natriuret Pep 206 pg/mL Total Protein (6.3-8.2) g/dL Albumin (3.5-5.0) g/dL Coronavirus (PCR) (Not Detectd) 11/08/19 Range/Units 13:05 WBC (3.8-10.6) k/uL RBC (4.30-5.90) m/uL Hgb (13.0-17.5) gm/dL Hct (39.0-53.0) % MCV (80.0-100.0) fL MCH (25.0-35.0) pg MCHC (31.0-37.0) g/dL RDW (11.5-15.5) % Plt Count (150-450) k/uL Neutrophils % % Lymphocytes % % Monocytes % % Eosinophils % % Basophils % % Neutrophils # (1.3-7.7) k/uL Lymphocytes # (1.0-4.8) k/uL Monocytes # (0-1.0) k/uL Eosinophils # (0-0.7) k/uL Basophils # (0-0.2) k/uL PT (9.0-12.0) sec INR (<1.2) APTT (22.0-30.0) sec Sodium (137-145) mmol/L Potassium (3.5-5.1) mmol/L Chloride (98-107) mmol/L Carbon Dioxide (22-30) mmol/L Anion Gap mmol/L BUN (9-20) mg/dL Creatinine (0.66-1.25) mg/dL Est GFR (CKD-EPI)AfAm (>60 ml/min/1.73 sqM) Est GFR (CKD-EPI)NonAf (>60 ml/min/1.73 sqM) Glucose (74-99) mg/dL Plasma Lactic Acid Chepe (0.7-2.0) mmol/L Calcium (8.4-10.2) mg/dL Magnesium (1.6-2.3) mg/dL Total Bilirubin (0.2-1.3) mg/dL AST (17-59) U/L ALT (4-49) U/L Alkaline Phosphatase (38-126) U/L Creatine Kinase (55-170) U/L Troponin I (0.000-0.034) ng/mL NT-Pro-B Natriuret Pep pg/mL Total Protein (6.3-8.2) g/dL Albumin (3.5-5.0) g/dL Coronavirus (PCR) Not Detected (Not Detectd) Disposition Clinical Impression: Pneumonia, Hyperbilirubinemia Disposition: ADMITTED IP TO THIS [facility] Condition: Stable Is patient prescribed a controlled substance at d/c from ED?: No Decision to Admit Reason: Admit from EC Decision Date: 11/08/19 Decision Time: 14:27
[2019-11-08 13:10] LABS: Basophils % (A) 0 %; Eosinophils # (A) 0.1 k/uL (0-0.7); Eosinophils % (A) 1 %; HCT 36.7 % (39.0-53.0); HGB 12.2 gm/dL (13.0-17.5); Lymphocytes # (A) 0.6 k/uL (1.0-4.8); Lymphocytes % (A) 5 %; MCH 32.2 pg (25.0-35.0); MCHC 33.3 g/dL (31.0-37.0); MCV 96.9 fL (80.0-100.0); Mean Platelet Volume 8.5; Monocytes # (A) 0.4 k/uL (0-1.0); Monocytes % (A) 4 %; Neutrophils # (A) 10.6 k/uL (1.3-7.7); Neutrophils % (A) 89 %; Platelet Count 299 k/uL (150-450); RBC 3.79 m/uL (4.30-5.90); RDW 12.9 % (11.5-15.5); WBC 11.9 k/uL (3.8-10.6)
[2019-11-08 13:18] LABS: ALT 83 U/L (4-49); AST 99 U/L (17-59); African American GFR (CKD) >90 (>60 ml/min/1.73 sqM); Albumin 3.2 g/dL (3.5-5.0); Alkaline Phosphatase 783 U/L (38-126); Anion Gap 12 mmol/L; Blood Urea Nitrogen 13 mg/dL (9-20); Calcium 9.6 mg/dL (8.4-10.2); Carbon Dioxide 24 mmol/L (22-30); Chloride 100 mmol/L (98-107); Creatine Kinase 68 U/L (55-170); Glucose 126 mg/dL (74-99); Magnesium 1.9 mg/dL (1.6-2.3); Non-African American GFR(CKD) >90 (>60 ml/min/1.73 sqM); Potassium 3.7 mmol/L (3.5-5.1); Sodium 136 mmol/L (137-145); Total Bilirubin 6.8 mg/dL (0.2-1.3); Total Protein 6.4 g/dL (6.3-8.2)
[2019-11-08 13:24] LABS: INR 1.1 (<1.2); Partial Thromboplastin Time 23.9 sec (22.0-30.0); Prothrombin Time 11.2 sec (9.0-12.0)
--- NOTE | 2019-11-08 13:47 | XR ---
EXAMINATION TYPE: XR chest 2V DATE OF EXAM: 11/08/2019 COMPARISON: 12/19/2018 HISTORY: 59-year-old male with weakness TECHNIQUE: AP and lateral views FINDINGS: The heart is normal size. Aorta within normal limits. Hyperinflation with scattered areas of lucency and increased retrosternal clear space. Focal patchy peripheral right midlung density. Right hilar so ft tissue prominence. Suspect some right apical pleural parenchymal scarring. Chronic nonunited and d isplaced distal right clavicle fracture deformity. No pleural effusion. IMPRESSION: 1. COPD with some patchy peripheral right midlung density. Developing pneumonia here not excluded. 2. Right hilar soft tissue prominence could reflect abnormal underlying lymphadenopathy/mass.
[2019-11-08] MEDS ORDERED: NALOXONE 0.4 MG/ML 1 ML VIAL IV PRN (13:55)
[2019-11-08] MEDS ORDERED: cefTRIAXone IN SWFI 1,000 MG/10 ML SYRINGE IVP STA (14:24)
[2019-11-08] MEDS: SODIUM CHLORIDE 0.9% 500 ML 500 ML IV ONE ×2 (15:00→16:28)
[2019-11-08] MEDS ORDERED: NICOTINE 14MG/24HR PATCH TRANSDERM SCH (15:15)
--- NOTE | 2019-11-08 15:25 | US ---
EXAMINATION TYPE: US gallbladder DATE OF EXAM: 11/08/2019 COMPARISON: NONE CLINICAL HISTORY: 59-year-old male Jaundice. Severe pain. TECHNIQUE: Multiple sonographic images of the right upper quadrant are obtained. FINDINGS: PARTS COUNTERPERSON NOTES: Some limitations patient very thin. EXAM MEASUREMENTS: Liver Length: 16.4 cm Gallbladder Wall: .5 cm CBD: 1.7 cm Right Kidney: 12.1 x 5.5 x 6.2 cm Pancreas: Appears heterogenous and enlarged. Liver: Intrahepatic biliary ductal dilatation. Gallbladder: Enlarged 11.2 cm, appears to be sludge filled with some calcifications. Evidence for sonographic Ribeiro's sign: Yes CBD: Dilated. Right Kidney: Cystic area lower pole 3.0 x 3.2 x 2.9 cm. No hydronephrosis. IMPRESSION: 1. Hydropic gallbladder, intrahepatic and extra hepatic biliary ductal dilatation (bile duct at 1.7 c m), and bulky heterogeneous appearance to the visualized pancreas. Unable to exclude pancreatic head mass and secondary biliary obstruction. 2. Calcifications and sludge within the distended gallbladder along with positive sonographic Ribeiro sign. Correlate clinically for concurrent acute cholecystitis.
--- NOTE | 2019-11-08 15:29 | US ---
EXAMINATION TYPE: US venous doppler duplex LE BI DATE OF EXAM: 11/08/2019 2:33 PM COMPARISON: NONE CLINICAL HISTORY: 59-year-old male swelling. Edema. SIDE PERFORMED: Bilateral TECHNIQUE: The lower extremity deep venous system is examined utilizing real time linear array sonog andre with graded compression, doppler sonography and color-flow sonography. FINDINGS: VESSELS IMAGED: External Iliac Vein (EIV) Common Femoral Vein Deep Femoral Vein Greater Saphenous Vein * Femoral Vein Popliteal Vein Small Saphenous Vein * Proximal Calf Veins (* superficial vessels) Right Leg: Negative for DVT Left Leg: Negative for DVT IMPRESSION: No evidence for DVT within the bilateral lower extremities imaged from the groin to the upper calves.
--- NOTE | 2019-11-08 15:46 | CT ---
EXAMINATION TYPE: CT ChestAbdPelvis w con DATE OF EXAM: 11/08/2019 COMPARISON: Ultrasound same day HISTORY: 59-year-old male lung mass, biliary obstruction TECHNIQUE: Contiguous axial scanning of the chest, abdomen, and pelvis performed with IV Contrast, pa tient injected with 100 mL of Isovue 300. Delayed images through the kidneys were obtained. Coronal/s agittal reconstructions performed. CT DLP: 593 mGycm Automated exposure control for dose reduction was used. FINDINGS: CHEST: Patient is cachectic. Heart normal size without pericardial effusion. Aorta normal caliber with very direct takeoff of the left vertebral artery directly from the aortic a rch. Right and left tracheobronchial angle mediastinal lymphadenopathy measuring 1.5 and 1.2 cm. Right hil ar mily mass measuring 2.9 x 2.1 cm. Bullous emphysema. Focal patchy opacity periphery of the right upper lobe could represent pleural-par enchymal scarring or developing consolidation. Follow-up is recommended. Some additional mild patchy density anterior right midlung. No pleural effusion. Breathing motion artifact are present. ABDOMEN: Patient is again noted to be cachectic limiting overall evaluation. There is intrahepatic and extrahe patic biliary ductal dilatation. Bile duct measuring up to 1.4 cm. Possible 5.1 x 3.2 cm and 7.0 cm c raniocaudal pancreatic head mass. Gallbladder mildly hydropic. Mild wall thickening is present. Moderate focal narrowing of the upper SMV as it courses along the pancreatic region, axial image 71, 72, and 73. Some focal geographic hypervascularity centrally in the liver measures 3.9 x 1.9 cm, likely vascular shunting. This does not persist on the delayed kidney images. Limited assessment of the adrenal glands due to cachexia. 3.5 cm benign cyst within the lower pole right kidney. Spleen within normal limits. Moderate prostatic calcifications abdominal aorta and moderate to severe within the common iliac lay jojo. No dilated small bowel, free fluid, or free air. Moderate stool in the left side of the colon. PELVIS: AGAIN, limited assessment due to cachexia. Bladder is distended. Prostate gland appears mildly enlarg ed at 4.8 cm wide. Generalized anasarca change. Possible wall thickening of the distal sigmoid and re ctum. Difficult to evaluate due to anasarca and cachexia. Difficult to assess underlying lymphadenopa thy. BONES: Moderately permeative lucencies throughout the left acetabulum and left ischium. Lesser degree of per meative lucencies within the superior right acetabulum. Vertebral compression collapse of L4 and moderate compression collapse of L3 also with associated per meative lucencies. At the L4 level, there is retropulsion into the spinal canal causing at least mode rate spinal canal stenosis. Suspect some extraosseous extension into the ventral spinal canal at both of these levels that can be further evaluated with MRI. IMPRESSION: 1. DIFFICULT ASSESSMENT DUE TO GENERALIZED ANASARCA AND CACHEXIA. 2. INTRAHEPATIC AND EXTRA HEPATIC BILIARY DUCTAL DILATATION. UNABLE TO EXCLUDE A 7.0 X 5.1 X 3.2 CM P ANCREATIC HEAD MASS/PANCREATIC ADENOCARCINOMA. THERE IS ASSOCIATED MODERATE FOCAL NARROWING OF THE UP PER SMV. MULTIPHASIC MRI CAN PROVIDE BETTER SOFT TISSUE CONTRAST AND ASSESSMENT. 3. MEDIASTINAL AND RIGHT HILAR LYMPHADENOPATHY MEASURING UP TO 2.9 CM SUSPICIOUS FOR METASTATIC DISEA SE. 4. ADDITIONALLY, FINDINGS SUSPICIOUS FOR OSSEOUS METASTATIC DISEASE GIVEN PERMEATIVE DESTRUCTION OF T HE LEFT ACETABULUM AND LEFT ISCHIUM. LESSER DEGREE OF PERMEATIVE LUCENCY WITHIN THE SUPERIOR RIGHT AC ETABULUM. 5. PATHOLOGIC COMPRESSION FRACTURES OF L3 AND L4. AT L4, THERE IS RETROPULSION INTO THE VENTRAL SPINA L CANAL WITH AT LEAST A MODERATE SPINAL CANAL STENOSIS. SUSPECT SOME EXTRAOSSEOUS SOFT TISSUE EXTENDI NG INTO THE VENTRAL SPINAL CANAL WELL AT THESE LEVELS. MRI OF THE LUMBAR SCAN CAN FURTHER EVALUATE . CORRELATE FOR ANY LOWER EXTREMITY WEAKNESS/NEUROLOGIC DEFICITS. 6. HYDROPIC GALLBLADDER WITH MILD WALL THICKENING MAY BE REACTIVE TO THE BILIARY OBSTRUCTION. CORRELA TE TO EXCLUDE SYMPTOMS OF ACUTE CHOLECYSTITIS. 7. A COUPLE FOCI OF PATCHY DENSITY IN THE RIGHT LUNG. CORRELATE TO EXCLUDE DEVELOPING PNEUMONIA. FOLL OW-UP RECOMMENDED.
--- NOTE | 2019-11-08 15:50 | HP ---
HISTORY AND PHYSICAL DATE OF SERVICE: 11/08/2019 CHIEF COMPLAINTS: Weakness and diminished p.o. intake. HISTORY OF PRESENT ILLNESS: This 59-year-old gentleman with a past medical history of multiple medical problems, including significant alcoholism, history of hypertension, history of anxiety, history of nicotine dependence, being followed by Dr. Claros in the outpatient setting, was not feeling well over the past several days. The patient stopped drinking about 3 months ago, but the patient had generalized weakness, lower extremity edema, and the patient also had significant weight loss. The patient came to [facility] for further evaluation and treatment. At the hospital the patient had elevated white count at 11.9 and hemoglobin 12.2. The patient had significant respiratory findings and sodium was 136. Plasma lactic acid was 2.6 and bilirubin 6.8. AST was 69, ALT was 83, indicating hepatitis. Alkaline phosphatase was elevated at 783. Weeks virus was negative. Gallbladder ultrasound has been pending at this time. EKG showed right bundle branch block. There is no history of any fever, rigor or chills. No history of headache, loss of consciousness, seizures. PAST MEDICAL HISTORY: History of hypertension, history of DJD, history of alcoholism, history of anxiety, history of nicotine dependence. HOME MEDICATIONS: None. ALLERGIES: NONE. FAMILY HISTORY: No history of heart disease or strokes in the family. SOCIAL HISTORY: History of smoking. History of drinking alcohol, as mentioned earlier. REVIEW OF SYSTEMS: ENT: Diminished hearing. Diminished vision. CARDIOVASCULAR SYSTEM: No angina, palpitations. RESPIRATORY SYSTEM: As mentioned earlier. GI: As mentioned earlier. : No dysuria or retention. NERVOUS SYSTEM: No numbness, weakness. ALLERGY/IMMUNOLOGY: No asthma, hayfever. MUSCULOSKELETAL: As mentioned earlier. HEMATOLOGY/ONCOLOGY: No history of anemia. ENDOCRINE: As mentioned earlier. CONSTITUTIONAL: As mentioned earlier. DERMATOLOGY: Negative. RHEUMATOLOGY: Negative. PSYCHIATRY: As mentioned earlier. PHYSICAL EXAMINATION: Alert and oriented x3. The pulse is 86, blood pressure 123/83, respiration 20, temperature 98.1, pulse ox 97% on room air. HEENT: Conjunctivae icteric. Oral mucosa moist. NECK: No jugular venous distention. No carotid bruit. No lymph node enlargement. CARDIOVASCULAR SYSTEM: S1, S2 muffled. RESPIRATORY SYSTEM: Breath sounds diminished at the bases. Bilateral scattered rhonchi and expiratory wheezing and crackles heard. ABDOMEN: Soft, scaphoid, non-tender. No mass palpable. LEGS: No edema. No swelling. NERVOUS SYSTEM: Higher functions as mentioned earlier. Moves all 4 limbs. No focal motor or sensory deficit. LYMPHATICS: No lymph node palpable in neck, axillae or groin. SKIN: Jaundiced. LABS: Labs at this time show WBC 11.9, hemoglobin 12.2. Sodium 136 and lactic acid 2.7. Total bilirubin is 6.8, AST is 99, ALT is 83, alkaline phosphatase is 783. ASSESSMENT: 1. Acute hepatitis with severe weight loss. To rule out malignancy. 2. Chronic obstructive pulmonary disease, acute exacerbation, with acute purulent tracheobronchitis with possible sepsis, present on admission. 3. Hyponatremia. 4. Increased white count. 5. Anemia of chronic disease. 6. History of ethanol. 7. Hypertension. 8. History of anxiety. 9. History of continued ongoing nicotine dependence. 10.Severe protein-calorie malnutrition with a body mass index of 16.5. 11.Recent weight loss. 12.FULL CODE. RECOMMENDATIONS AND DISCUSSION: In this a 59-year-old gentleman who presented with multiple complex medical issues, at this time I recommend to continue the current medications, continue with the symptomatic treatment. Other than that, I would also recommend bronchodilators, antibiotics, CT scan of the chest, abdomen and pelvis to rule out the possibility of any malignancy. Otherwise, proton pump inhibitors. Guarded prognosis because of multiple complex medical issues. Further recommendations to follow. A copy of this dictation is being forwarded to Dr. Claros, who is the primary physician. MMLARRYL / IJN: [id number] /
[2019-11-08] MEDS ORDERED: ALBUTEROL NEBULIZED 2.5 MG/3 ML INHALATION SCH (16:00)
[2019-11-08] MEDS: ALBUTEROL HFA INHALER INHALATION SCH ×2 (16:27→20:38)
[2019-11-08] MEDS: PANTOPRAZOLE 40 MG TABLET PO SCH (16:28)
[2019-11-08] MEDS: AZITHROMYCIN 500 MG in SODIUM CHLORIDE 0.9% 250 ML IVPB SCH (16:28)
[2019-11-08] MEDS: SODIUM CHLORIDE 0.9% 1,000 ML IV SCH (16:29)
[2019-11-08] MEDS ORDERED: LORazepam 2 MG/ML INJ IV PRN (18:08)
[2019-11-08] MEDS: INSULIN ASPART (NovoLOG) 100 UNIT/ML VIAL SQ SCH ×2 (18:16→20:50)
[2019-11-08] MEDS: methylPREDNISolone SOD SUCCI 125 MG/2 ML VIAL IV SCH (18:28)
[2019-11-08] MEDS: SYMBICORT 160-4.5 MCG INHALER INHALATION SCH (20:40)
[2019-11-08 20:47] LABS: Glucose,Whole Blood 137 mg/dL (75-99)
[2019-11-09] MEDS: methylPREDNISolone SOD SUCCI 125 MG/2 ML VIAL IV SCH ×4 (00:09→17:50)
--- NOTE | 2019-11-09 02:27 | CONS ---
CONSULTATION DATE OF SERVICE: 11/08/2019 REASON FOR CONSULTATION: 1. Pneumonia. 2. Sacral wound. HISTORY OF PRESENT ILLNESS: The patient is a 59-year-old male with a past medical history significant for heavy drinking in the past. No other medical illness. The patient apparently quit drinking about 3 months ago. The patient has been brought into the ER by the EMS with concern for increased generalized weakness, lower extremity . The patient's symptom has been getting worse for the last few days to 2 weeks. The patient denies any fever or any chills. The patient denies having any chest pain or shortness of breath. He did have some cough which has been mild in intensity not bringing up any sputum. No nausea, no vomiting. No abdominal pain. No diarrhea. He also have a wound on his sacrum area. However, the patient is not sure how it started, but mentioned that he has been mostly bed-bound and not getting up and around. On arrival to the ER, the patient noticed to be afebrile. The patient did have acute lactic acid 2.1, white count was 11.9. Liver enzymes were mildly elevated. Creatinine 0.49. Tylenol and alcohol level was normal: Weeks PCR was negative. The patient did have lower extremity Doppler that was negative for any DVT and did have some swelling and ultrasound of the gallbladder did shows hydropic gallbladder with intrahepatic and extrahepatic biliary ductal dilatation. He did have a CT of chest, abdomen and pelvis which reported intrahepatic and extrahepatic biliary ductal dilatation with concern for possible pancreatic head adenocarcinoma, metastatic right hilar lymphadenopathy, osseous metastasis with fracture of L3 and L4, patchy density right lung correlate to exclude developing pneumonia. This patient has been started on Rocephin and Zithromax, Solu-Medrol. Infectious Disease was consulted for further recommendation regarding antibiotic and his sacral wound area. REVIEW OF SYSTEMS: Positive points have been mentioned in HPI. Rest of systems are negative. PAST MEDICAL HISTORY: Hypertension. PAST SURGICAL HISTORY: Left ankle surgery. SOCIAL HISTORY: Current everyday smoker. Did have a history of heavy drinking, apparently quit that 3 months ago. ALLERGIES: No known drug allergies. MEDICATIONS: Medications include the patient is currently on thiamine, Protonix, Narcan, Theragran, Solu-Medrol, Ativan, NovoLog, Rocephin, Zithromax, Ventolin. PHYSICAL EXAMINATION: On examination, blood pressure 121/66, pulse of 99, temperature 98.4. He is 96% on room air. General description is a middle-aged male lying in bed in no distress. No tachypnea or accessory muscle of respiration use. HEENT: Examination shows scleral icterus positive. Oral mucous membrane is dry. NECK: Trachea central. No thyromegaly. LUNGS: Unlabored breathing, decreased breath sounds at the base. No wheeze. HEART: S1, S2. Regular rate and rhythm. ABDOMEN: Soft, no tenderness. No guarding or rigidity. EXTREMITIES: No edema of feet. Examination of sacral area did have pressure ulcer stage III with slough tissue. No surrounding redness or any foul-smelling drainage. NEUROLOGICAL: Patient is awake, alert, oriented x3. Mood and affect normal. LABS: BUN of 13, creatinine 0.49. Bilirubin is 6.8. ALT 99, AST 83, hemoglobin is 12.2, white count 11.9. DIAGNOSTIC IMPRESSION AND PLAN: 1. Patient presented to hospital with generalized weakness and jaundice in this patient with possible pancreatic head tumor with secondary obstructive jaundice for which GI has been consulted. Clinically not behaving as ascending cholangitis. 2. Patient who did have cough with history of smoking, but developing right middle lobe infiltrate concern for possible community-acquired pneumonia. 3. The patient has stage III sacral pressure ulcer with no evidence of any cellulitis. PLAN: 1. Local wound care to the sacral wound with Medihoney followed by moist dressing, keep the area dry and may benefit from surgical debridement. 2. Continue with Rocephin and Zithromax to cover for possible community-acquired pneumonia. 3. We will follow on clinical condition and culture to further adjust medication if needed. Thank you for this consultation. Will follow this patient along with you. MMODL / IJN: [id number] /
[2019-11-09 06:45] LABS: Glucose,Whole Blood 153 mg/dL (75-99)
[2019-11-09 07:08] LABS: ALT 62 U/L (4-49); AST 75 U/L (17-59); African American GFR (CKD) >90 (>60 ml/min/1.73 sqM); Albumin 2.6 g/dL (3.5-5.0); Alkaline Phosphatase 653 U/L (38-126); Anion Gap 6 mmol/L; Blood Urea Nitrogen 13 mg/dL (9-20); Calcium 8.4 mg/dL (8.4-10.2); Carbon Dioxide 26 mmol/L (22-30); Chloride 103 mmol/L (98-107); Glucose 142 mg/dL (74-99); Non-African American GFR(CKD) >90 (>60 ml/min/1.73 sqM); Potassium 4.2 mmol/L (3.5-5.1); Sodium 135 mmol/L (137-145); Total Protein 5.4 g/dL (6.3-8.2)
[2019-11-09] MEDS: ALBUTEROL HFA INHALER INHALATION SCH ×4 (07:32→19:51)
[2019-11-09] MEDS: SYMBICORT 160-4.5 MCG INHALER INHALATION SCH ×2 (07:33→19:52)
[2019-11-09] MEDS: PANTOPRAZOLE 40 MG TABLET PO SCH (07:41)
[2019-11-09] MEDS: INSULIN ASPART (NovoLOG) 100 UNIT/ML VIAL SQ SCH ×4 (07:41→21:10)
[2019-11-09 08:00] LABS: Basophils % (A) 0 %; Eosinophils % (A) 0 %; HCT 35.5 % (39.0-53.0); HGB 11.3 gm/dL (13.0-17.5); Hypochromasia Slight; Lymphocytes # (A) 0.4 k/uL (1.0-4.8); Lymphocytes % (A) 5 %; MCH 32.2 pg (25.0-35.0); MCHC 31.9 g/dL (31.0-37.0); MCV 101.1 fL (80.0-100.0); Mean Platelet Volume 9.3; Monocytes # (A) 0.1 k/uL (0-1.0); Monocytes % (A) 1 %; Neutrophils # (A) 6.7 k/uL (1.3-7.7); Neutrophils % (A) 94 %; Platelet Count 272 k/uL (150-450); RBC 3.51 m/uL (4.30-5.90); WBC 7.1 k/uL (3.8-10.6)
[2019-11-09] MEDS: AZITHROMYCIN 500 MG in SODIUM CHLORIDE 0.9% 250 ML IVPB SCH (08:44)
--- NOTE | 2019-11-09 09:53 | CDI ---
Documentation Clarification Form Date: 11/09/2019 09:40:04 AM From: Christel Snell RN, CCDS Admit Date: 11/08/2019 01:55:00 PM Patient Name: Martín Thompson Visit Number: [id number] ATTENTION: The Clinical Documentation Specialists (CDI) and [facility] Coding Staff appreciate your assistance in clarifying documentation. Please respond to the clarification below the line at the bottom and electronically sign. The CDI & [facility] Coding staff will review the response and follow-up if needed. Please note: Queries are made part of the Legal Health Record. If you have any questions, please contact the author of this message via ITS. Dr. Daisy Meyer 11/07 this patient was tested for Coronavirus. Documentation of clinical significance of Coronavirus testing results is required in the medical record. Patient history/risk factors: HTN, DJD, ETOH, Nicotine Dependence Clinical Indicators: 11/07 ID consult: "Patient presented to hospital with generalized weakness and jaundice in this patient with possible pancreatic head tumor with secondary obstructive jaundice for which GI has been consulted. Clinically not behaving as ascending cholangitis." 11/07 CXR:"COPD with some patchy peripheral right midlung density. Developing pneumonia here not excluded. Right hilar soft tissue prominence could reflect abnormal underlying lymphadenopathy/mass." Labs: WBC 11.9/7.1, CA 19-9 Antigen 130.1, Plasma lactic acid 2.7/2.2/2 ABGs: not done 11/07 Viral Panel: Coronavirus (PCR) Negative 11/07 1251 Admission Vital Signs: Temp 98.1, HR 86, RR 20, B/P 123/83, Spo2 97% RA Treatment: 11/07 0.9%NS IVF Bolus 500 cc followed by 20 cc/hr Zithromax 500 mg IVPB QD Solumedrol 60 mg IVP q 6 hrs Ceftriaxone 1gm IVPB Q 24 hrs In order to capture the severity of condition, please clarify if the above treatment/clinical indicators signify: COVID-19 ruled out COVID-19 false negative testing. Covid clinically present (please provide clinical indicators) Other, please specify (Last Form Revision: September 2019) COVID-19 ruled out MTDD
[2019-11-09] MEDS ORDERED: HYDROcodone/APAP 5-325MG 1 EACH TAB ONE (10:47)
[2019-11-09] MEDS: HYDROcodone/APAP 5-325MG 1 EACH TAB PO PRN ×3 (10:49→22:24)
[2019-11-09 11:01] LABS: Glucose,Whole Blood 232 mg/dL (75-99)
--- NOTE | 2019-11-09 12:19 | P.CNPUL ---
History of Present Illness Consult date: 11/09/19 Requesting physician: Daisy Meyer Reason for consult: abnormal CXR/CT Chief complaint: Generalized weakness History of present illness: This is a 59-year-old gentleman who follows with Dr. Mendez as his primary care provider. He has a history of hypertension, anxiety, chronic tobacco dependence , heavy alcohol abuse. He stated he did quit drinking about 3 months ago. He was brought in by EMS to the emergency room yesterday with generalized weakness lower extremity edema and jaundice. He had been having diarrhea and stated his bowel movements have been green. He's been short of breath and had a loose nonproductive cough for several months now. He had been seen by our group approximately a year ago for acute hypoxic respiratory failure secondary to COPD exacerbation and tracheobronchitis. Chest x-ray at that time showed no acute pulmonary process. Yesterday's chest x-ray revealed evidence of COPD with patchy peripheral right midlung density, developing pneumonia not excluded. There is also a right hilar soft tissue prominence suspicious for underlying lymphadenopathy/mass. Ultrasound of the gallbladder revealed hydropic gallbladder with hepatic dilatation and bulky heterogenous appearance of the pancreas. Unable to exclude pancreatic head mass and secondary biliary obs truction. Calcifications and sludge within the distended gallbladder. Dopplers of the lower extremities were negative for DVT. Computed tomography scan of the chest abdomen and pelvis revealed intrahepatic and extrahepatic biliary ductal dilatation. Unable to exclude a 7.0 x 5.1 x 3.2 cm pancreatic head mass/pancreatic adenocarcinoma. There is also noted mediastinal and right hilar lymphadenopathy measuring up to 2.9 cm suspicious for metastatic disease. There is also osseous metastatic disease with permeative distraction of the left acetabulum and left ischium. Permeative lucency within the superior right acetabulum. Pathologic compression fractures of L3 and L4. Moderate spinal ca nal stenosis. Hydropic gallbladder with mild wall thickening. Patchy density in the right lung. The patient is seen today in consultation on the regular medical floor. He is currently awake and alert in no acute distress. He is quite cachectic appearing disheveled. Maintaining O2 saturation in the 90s on room air. He's been afebrile. Hemodynamically stable. Coccyx wound culture pending. White count 7.1. Hemoglobin 11.3. MCV 101. Sodium 135. Potassium 4.2. Creatinine 0.44. AST 75. ALT 62. Alk phos 653. CA 199 antigen 130. Coronavirus by PCR not detected. He has been initiated on ceftriaxone and azithromycin along with Symbicort, IV Solu-Medrol and albuterol. Review of Systems REVIEW OF SYSTEMS: CONSTITUTIONAL: Positive for recent weight loss. EYES: Denies change in vision. EARS, NOSE, MOUTH, THROAT: Denies headaches, denies sore throat. CARDIOVASCULAR: Denies chest pain, palpitations or syncopal episodes. RESPIRATORY: Positive for shortness of breath, cough, congestion no hemoptysis. GASTROINTESTINAL: Positive for decrease in appetite, denies abdominal pain GENITOURINARY: Denies hematuria, denies infections. MUSKULOSKELETAL: Positive for pain, positive for swelling. INTEGUMENTARY: Denies rash, denies eczema. NEUROLOGICAL: Denies recent memory loss, no recent seizure activity. PSYCHIATRIC: Denies anxiety, denies depression. HEMATOLOGIC/LYMPHATIC: Denies anemia, denies enlarged lymph nodes. Past Medical History Past Medical History: No Reported History, Hypertension Additional Past Medical History / Comment(s): fatty tissue on right cheek and came in with pressure ulcer on coccyx History of Any Multi-Drug Resistant Organisms: None Reported Past Surgical History: Orthopedic Surgery Additional Past Surgical History / Comment(s): left ankle sx Past Anesthesia/Blood Transfusion Reactions: No Reported Reaction Past Psychological History: Anxiety Smoking Status: Current some day smoker Past Alcohol Use History: None Reported, Daily, Heavy Past Drug Use History: None Reported - Past Family History Mother Additional Family Medical History / Comment(s): of colon cancer Father History Unknown: Yes Additional Family Medical History / Comment(s): etoh Medications and Allergies Home Medications Medication Instructions Recorded Confirmed Type No Known Home Medications 11/08/19 11/08/19 History Allergies Allergy/AdvReac Type Severity Reaction Status Date / Time No Known Allergies Allergy Verified 11/08/19 14:29 Physical Exam Vitals: Vital Signs Temp Pulse Pulse Resp BP BP Pulse Ox 11/09/19 05:12 98.1 F 88 18 114/73 93 L 11/08/19 21:23 98.4 F 99 16 121/66 96 11/08/19 16:00 20 11/08/19 15:35 98.1 F 87 20 114/75 98 11/08/19 15:05 98.7 F 82 16 114/80 97 11/08/19 14:15 78 18 121/77 98 11/08/19 12:51 98.1 F 86 20 123/83 97 11/08/19 12:45 24 Intake and Output 11/08/19 11/09/19 11/09/19 22:59 06:59 14:59 Intake Total 80 800 Balance 80 800 Intake: Intake, IV Titration 80 800 Amount Sodium Chloride 0.9% 1, 80 800 000 ml @ 20 mls/hr IV . Q24H [facility] Rx#:[id number] Other: Voiding Method Urinal Urinal # Voids 1 1 # Bowel Movements 1 GENERAL EXAM: Alert, disheveled, cachectic 59-year-old gentleman, on 2 L room air, fairly comfortable in no apparent distress. HEAD: Normocephalic. EYES: Normal reaction of pupils, equal size. Sclera icteric. NOSE: Clear with pink turbinates. THROAT: No erythema or exudates. NECK: No masses, no JVD. CHEST: No chest wall deformity. LUNGS: Equal air entry with few scattered rhonchi, bilateral end expiratory wheeze, diminished. CVS: S1 and S2 normal with no audible murmur, regular rhythm. ABDOMEN: No hepatosplenomegaly, normal bowel sounds, tender to palpation. SPINE: Kyphoscoliosis SKIN: DECUBITUS ulcer on the coccyx CENTRAL NERVOUS SYSTEM: No focal deficits, tone is normal in all 4 extremities. EXTREMITIES: There is 1+ peripheral edema. No clubbing, no cyanosis. Peripheral pulses are intact. Results - Laboratory Findings CBC and BMP: 11/09/19 06:13 11/09/19 06:13 PT/INR, D-dimer PT 11.2 sec (9.0-12.0) 11/08/19 12:42 INR 1.1 (<1.2) 11/08/19 12:42 Abnormal lab findings: Abnormal Labs 11/08/19 11/08/19 11/08/19 12:42 12:42 12:42 WBC 11.9 H RBC 3.79 L Hgb 12.2 L Hct 36.7 L MCV Neutrophils # 10.6 H Lymphocytes # 0.6 L Sodium 136 L Creatinine 0.49 L Glucose 126 H POC Glucose (mg/dL) Plasma Lactic Acid Chepe 2.7 H* Total Bilirubin 6.8 H AST 99 H ALT 83 H Alkaline Phosphatase 783 H Total Protein Albumin 3.2 L CA 19-9 Antigen 11/08/19 11/08/19 11/08/19 17:12 20:46 21:05 WBC RBC Hgb Hct MCV Neutrophils # Lymphocytes # Sodium Creatinine Glucose POC Glucose (mg/dL) 137 H Plasma Lactic Acid Chepe 2.2 H* Total Bilirubin AST ALT Alkaline Phosphatase Total Protein Albumin CA 19-9 Antigen 130.1 H 11/09/19 11/09/19 11/09/19 06:13 06:13 06:45 WBC RBC 3.51 L Hgb 11.3 L Hct 35.5 L MCV 101.1 H Neutrophils # Lymphocytes # 0.4 L Sodium 135 L Creatinine 0.44 L Glucose 142 H POC Glucose (mg/dL) 153 H Plasma Lactic Acid Chepe Total Bilirubin 5.0 H AST 75 H ALT 62 H Alkaline Phosphatase 653 H Total Protein 5.4 L Albumin 2.6 L CA 19-9 Antigen 11/09/19 10:59 WBC RBC Hgb Hct MCV Neutrophils # Lymphocytes # Sodium Creatinine Glucose POC Glucose (mg/dL) 232 H Plasma Lactic Acid Chepe Total Bilirubin AST ALT Alkaline Phosphatase Total Protein Albumin CA 19-9 Antigen - Diagnostic Findings Chest x-ray: image reviewed CT scan - chest: image reviewed U/S of Legs: image reviewed Assessment and Plan Assessment: 1 Generalized weakness secondary to suspected pancreatic adenocarcinoma with metastasis to the lung, bone. CA 199 antigen 130. 2 Mediastinal and right hilar lymphadenopathy measuring up to 2.9 cm suspicious for metastatic disease. There is also a patchy density in the right lung cannot rule out developing pneumonia 3 Permeative distraction of the left acetabulum and left moe along with the superior right acetabulum suspicious for osseous metastatic disease. Pathologic compression fractures of L3 and L4 with moderate spinal canal stenosis 4 Hydropic gallbladder with mild wall thickening suspect secondary to biliary obstruction versus acute cholecystitis 5 Chronic and ongoing tobacco dependence 6 Chronic heavy alcohol use, states quit 3 months ago 7 Decubitus ulcer in the coccyx 8 Protein calorie malnutrition, BMI 16.5 9 Elevated LFTs. 10 Poor overall functional performance based on the above-mentioned multiple comorbidities Plan: The patient was seen and evaluated by Dr. King Chest x-ray, CAT scan, labs reviewed Most likely metastatic pancreatic cancer May benefit from ERCP with biopsy, GI consult Difficult for lung biopsy, possible with navigation system Consult oncology ID is on the case regarding large coccyx wound Continue ceftriaxone and azithromycin for now Continue IV Solu-Medrol and bronchodilators He is educated regarding the importance of complete smoking cessation, alcohol c essation Overall prognosis remains quite guarded We will continue to follow and make further recommendations based on his clinical status I, the cosigning physician, performed a history & physical examination of the patient. Lungs sounds with few scattered rhonchi, end expiratory wheeze, diminished. Maintaining good O2 saturations in the 90s on room air. I discussed the assessment and plan of care with my nurse practitioner, Valerie Tucker. I attest to the above note as dictated by her. Time with Patient: Greater than 30
[2019-11-09] MEDS: FOLIC ACID 1 MG TAB PO SCH (13:03)
[2019-11-09] MEDS: THIAMINE 100 MG TAB PO SCH (13:03)
[2019-11-09] MEDS: MULTIVITAMINS, THERA 1 EACH TAB PO SCH (13:03)
[2019-11-09 14:07] VITALS: BMI 16.5
[2019-11-09] MEDS: HYDROmorphone 0.5 MG/0.5 ML SYRINGE IVP PRN (14:29)
[2019-11-09 15:15] LABS: Appearance,Urine Clear (Clear); Bilirubin,Urine 2+ (Negative); Blood,Urine Negative (Negative); Color,Urine Dark Brown; Glucose,Urine (UA) 4+ (Negative); Ketones,Urine Negative (Negative); Leukocyte Esterase,Urine Negative (Negative); Nitrite,Urine Negative (Negative); Protein,Urine Trace (Negative); Specific Gravity,Urine 1.028 (1.001-1.035); Urobilinogen,Urine <2.0 mg/dL (<2.0)
[2019-11-09 15:29] LABS: Amphetamine Screen,Urine Not Detected (NotDetected); Barbiturate Screen,Urine Not Detected (NotDetected); Benzodiazepines Screen,Urine Not Detected (NotDetected); Cocaine Screen,Urine Not Detected (NotDetected); Methadone Screen, Urine Not Detected (NotDetected); Opiate Screen,Urine Detected (NotDetected); Oxycodone Screen, Urine Not Detected (NotDetected); Phencyclidine Screen,Urine Not Detected (NotDetected); Tricyclic Antidepressant,Urine Not Detected (NotDetected); Urn Cannabinoid Scrn Not Detected (NotDetected)
--- NOTE | 2019-11-09 15:34 | PN ---
PROGRESS NOTE DATE OF SERVICE: 11/09/2019 This 59-year-old gentleman who was admitted with significant weakness and diminished p.o. intake is being closely monitored. The patient has significant jaundice which is thought to be obstructive jaundice. The patient's CA 19-9 antigen is 130.1. Gastroenterology is following the patient closely. The patient had multiple imaging modalities yesterday, including chest, abdomen and pelvis CT scan which showed multiple abnormalities, including generalized anasarca, intrahepatic and extrahepatic biliary dilatation with possibly a pancreatic head mass and pancreatic adenocarcinoma. Moderate focal narrowing of the upper SMV was also noted. Mediastinal and right hilar lymphadenopathy was also noted. Findings suspicious for osseous metastatic disease seen also. Pathological fracture of L3-4 was also noted with some moderate spinal stenosis. Hydropic gallbladder was also noted. The patient is being closely monitored. Bone scan is also being ordered at this time. Past medical history reviewed. REVIEW OF SYSTEMS: CARDIOVASCULAR SYSTEM: No angina, palpitations. RESPIRATORY SYSTEM: As mentioned earlier. GI: As mentioned earlier. : No dysuria or retention. NERVOUS SYSTEM: Diffusely weak. CURRENT MEDICATIONS: Reviewed. They include: 1. [place] 5 mg q.6 p.r.n. 2. Ventolin 2 puffs q.i.d. 3. Zithromax 500 mg daily. 4. Symbicort 160/4.5 two puffs b.i.d. 5. Rocephin 1 gram daily. 6. Folic acid 1 mg p.o. daily. 7. Dilaudid 0.5 mg q.6 p.r.n. 8. Ativan 1 mg q.4 p.r.n. 9. Solu-Medrol 60 IV q.6. 10.Multivitamins 1 p.o. daily. 11.Narcan p.r.n. 12.Protonix 40 mg daily. 13.Thiamine 100 mg p.o. daily. PHYSICAL EXAMINATION: Patient is alert, oriented x3. Pulse 94, blood pressure 110/68, respiration 20, temperature 97.9, pulse ox 92% on room air. HEENT: Conjunctivae normal. NECK: No jugular venous distention. CARDIOVASCULAR SYSTEM: S1, S2 muffled. RESPIRATORY SYSTEM: Breath sounds diminished at the bases. Bilateral scattered rhonchi and crackles. ABDOMEN: Soft, scaphoid. Mild diffuse discomfort on palpation. LEGS: Bilateral leg edema. NERVOUS SYSTEM: Diffusely weak and wasted and emaciated. LAB INVESTIGATIONS: WBC 7.2, hemoglobin 11.3, sodium 135, glucose 142. Total bilirubin is 5 and AST is 75, ALT 62, alkaline phosphatase 653. CA 19-9 is 130.1. ASSESSMENT: 1. Obstructive jaundice with intra- and extrahepatic biliary dilatation, possibly secondary to pancreatic malignancy, head of the pancreas. 2. Chronic obstructive pulmonary disease, acute exacerbation, with acute purulent tracheobronchitis with possible sepsis, present on admission. 3. Hyponatremia. 4. Severe emaciation. 5. Possible metastatic malignancy with multiple lesions in the bones and also lymphadenopathy in the chest. 6. Anemia of chronic disease. 7. History of ethanol. 8. Hypertension. 9. History of anxiety. 10.History of ongoing continued nicotine dependence. 11.Severe protein-calorie malnutrition with body mass index of 16.5. 12.History of recent weight loss. 13.Gait dysfunction. 14.FULL CODE. RECOMMENDATIONS AND DISCUSSION: In this 59-year-old gentleman who presented with multiple complex medical issues, at this time I recommend to continue the current medications. Gastroenterology has been consulted as well as Pulmonary to elucidate the exact cause of the patient's symptomatology, most likely due to obstructive jaundice. The possibility of pancreatic cancer with metastases is high on the list. CA 19-9 is also elevated. I would recommend a hematology/oncology evaluation. The patient also has increasing difficulty with wasting and weakness. The patient also has very poor social support. The patient apparently lives alone with some family in town. I would also recommend PT/OT evaluation and high school social studies teacher/supportive employment case manager to follow for the discharge disposition. As mentioned earlier, prognosis is extremely guarded. Further recommendations to follow. MMODL / IJN: [id number] /
--- NOTE | 2019-11-09 16:41 | CT ---
EXAMINATION TYPE: CT brain wo con DATE OF EXAM: 11/09/2019 HISTORY: mental status changes. History of metastatic cancer. CT DLP: 1090.4 mGycm. Automated Exposure Control for Dose Reduction was Utilized. TECHNIQUE: CT scan of the head is performed without contrast. COMPARISON: None. FINDINGS: There is no acute intracranial hemorrhage or midline shift identified. There is diffuse v entricular and sulcal prominence consistent with diffuse age-related cerebral atrophy. There is low- attenuation in the periventricular white matter consistent with chronic small vessel ischemic change. The globes are intact bilaterally. Vascular calcification distal internal carotid arteries. Tiny air -fluid level right maxillary sinus axial images 6 and 7. Nasal septum deviated to left of midline. Pa tchy soft tissue density right external auditory canal is thought to reflect cerumen. Opacified lef t mastoid air cells with some bony destruction thought present IMPRESSION: No acute intracranial hemorrhage or midline shift. There is mild to moderate diffuse ce rebral atrophy and mild chronic small vessel ischemic change noted. Suspect metastatic osseous lesion to left mastoid region inferior aspect
--- NOTE | 2019-11-09 16:52 | NM ---
EXAMINATION TYPE: NM bone scan whole body DATE OF EXAM: 11/09/2019 COMPARISON: NONE HISTORY: Metastases Delayed whole-body scanning was performed following the injection of 22.7 mCi Tc 99m MDP. Images wer e acquired 3 hours post injection. FINDINGS: There is increased radiotracer accumulation in the regions of the ankle joint spaces and the midfoot regions bilaterally. Some distal digit degenerative joint change may be present within the feet. Ther e is increased radiotracer within the bilateral knees. Mild increased radiotracer is at the left hip. Findings are likely related to degenerative change There is prominent left ureter and possible left hydronephrosis. There is a focus of radiotracer accumulation posterior right 11th or 12th rib. This is nonspecific. A metastatic lesion or posttraumatic change could be considered. Some photopenic defects within the proximal right femur are not excluded. No additional suspicious areas for metastatic disease is evident. Comparison: CT chest abdomen pelvis 11/08/2019. Significant uptake in the region of the left hip corre sponds to the suspicious findings on the CT examination including possible fracture at the left aceta bulum is not evident. This may be less intense nuclear recent bone scan in a more aggressive lesion. IMPRESSION: 1. Focus of radiotracer accumulation in the posterior medial right 11th or 12th rib is nonspecific. C onsider trauma within the differential. Solitary metastasis is considered less likely. 2. Photopenic defects within the proximal right femur. Plain film correlation recommended 3. Degenerative type joint changes especially noted in the bilateral knees and ankles. 4. Clinical consideration for hydronephrosis and hydroureter of the left renal collecting system is r ecommended. Consider additional workup.
[2019-11-09] MEDS: SODIUM CHLORIDE 0.9% 1,000 ML IV SCH (17:01)
[2019-11-09 17:18] LABS: Glucose,Whole Blood 141 mg/dL (75-99)
--- NOTE | 2019-11-09 19:40 | CONS ---
CONSULTATION DATE OF DICTATION: 11/09/2019 REASON FOR CONSULTATION: Obstructive jaundice. HISTORY OF PRESENT ILLNESS: The patient is a 59-year-old pleasant white male with history of hypertension and alcohol abuse. He was seeing Dr. Claros as an outpatient and was admitted to the hospital because of generalized weakness, progressive weight loss of 50 pounds over the last 6 months' duration and lower extremity edema about 2 days ago. At the time of admission to the hospital, he was noted to have elevated bilirubin at 6.8 with AST and ALT of 69 and 83, respectively, as well as alkaline phosphatase of 783. As a part of workup, he had a CT of the abdomen and pelvis done that showed intra- and extrahepatic biliary ductal dilation with hydropic gallbladder and a possible pancreatic mass measuring 7 cm in size. Hence we are consulted for further evaluation. The patient in the meantime denies any abdominal pain. He reports no nausea, vomiting. He has been having decreased appetite for the several months and lost 50 pounds. He reports no fever, chills or night sweats. PAST MEDICAL HISTORY: Significant for hypertension, degenerative joint disease, history of alcoholism, anxiety, depression. MEDICATIONS AT HOME: None. ALLERGIES: NO KNOWN DRUG ALLERGIES. SOCIAL HISTORY: Chronic smoker. Drinks alcohol heavily, as mentioned above. FAMILY HISTORY: Mother had CVA. REVIEW OF SYSTEMS: CARDIOPULMONARY: He denies any chest pain or shortness of breath. GENITOURINARY: No dysuria or hematuria. MUSCULOSKELETAL: Extreme weakness. ENT/VISION: Unremarkable. PSYCHIATRIC: History of anxiety. NEUROLOGY: Unremarkable. CONSTITUTIONAL: Weight loss of 50 pounds. No fever, chills, night sweats. PHYSICAL EXAMINATION: He appears comfortable. Vital signs are stable. Blood pressure is 110/68, pulse rate 94, temperature 97.9. HEENT examination unremarkable. Conjunctivae pink. Sclerae icteric. Oral cavity no lesions. NECK: No JVD or lymph node enlargement. CHEST: Clear to auscultation. ABDOMEN: Soft. There was some tenderness in the epigastric area on deep palpation. The rest of the abdomen was benign. Bowel sounds are positive. No organomegaly. EXTREMITIES: No pedal edema. SKIN: No rashes. NEUROLOGIC: Alert and oriented x3. No focal deficits. LABS/IMAGING: Labs done at the time of admission to the hospital: WBC 11.9, hemoglobin 12.2, platelets normal. Total bilirubin was 6.8. AST and ALT were 99 and 94, respectively. Alkaline phosphatase 783. Today show T-bilirubin is 5, alkaline phosphatase is 658. PT and INR within normal limits. COVID-19 is negative. CA 19-[address] of the abdomen and pelvis done yesterday showed intra- and extrahepatic biliary ductal dilation with hydrops of the gallbladder; unable to exclude a 7 cm pancreatic head mass. There is mediastinal right hilar lymphadenopathy measuring up to 2.9 cm . Lytic lesion in the left acetabulum and compression fractures in L3, L4 and L5. IMPRESSION: 1. Obstructive jaundice with progressive weight loss of 50 pounds in the last [address] scan showed intra- and extrahepatic biliary ductal dilation with a possible pancreatic mass. 2. Enlarged mediastinal lymph nodes and lytic lesions in the spine, left acetabulum, all suspicious for metastatic disease. 3. Chronic obstructive pulmonary disease. 4. History of heavy alcohol abuse. 5. Severe protein-calorie malnutrition. RECOMMENDATIONS: I had a lengthy discussion with the patient regarding CT scan findings, and at this time I recommended an ERCP with CBD stent placement and possible cytology of the pancreatic duct. I explained to him risks, benefits and complications of the procedure, and he is agreeable to it. In the meantime, we will monitor his LFTs closely and further recommendations will follow after the ERCP. Thank you for this consultation. FRANCOIS / ZENAIDA: [id number] /
[2019-11-09 20:44] LABS: Glucose,Whole Blood 162 mg/dL (75-99)
--- NOTE | 2019-11-10 | PN ---
PROGRESS NOTE DATE OF SERVICE: 11/09/2019 REASON FOR FOLLOWUP: 1. Sacral pressure ulcer. 2. Possible pneumonia. INTERVAL HISTORY: The patient is currently afebrile. Patient is breathing comfortably. Patient denies having any chest pain. Occasional cough. No nausea, no vomiting. No abdominal pain or diarrhea or pain to the sacral wound area. PHYSICAL EXAMINATION: Blood pressure 110/68 with a pulse of 94, temperature 97.9. He is 92% on room air. General description is a middle-aged male lying in bed in no distress. RESPIRATORY SYSTEM: Unlabored breathing, decreased breath sounds in the bases, no wheeze. HEART: S1, S2. Regular rate and rhythm. ABDOMEN: Soft, no tenderness. LABS: Labs reviewed. DIAGNOSTIC IMPRESSION AND PLAN: 1. Patient with stage III sacral pressure ulcer. Clinically doubt any infection. The wound culture has been obtained, will be followed. Local care with Medihoney followed by moist dressing. Keep the area off the pressure. 2. The patient with possible pneumonia covered with Rocephin and Zithromax. Monitor his clinical course closely. MMODL / IJN: [id number] /
[2019-11-10] MEDS: methylPREDNISolone SOD SUCCI 125 MG/2 ML VIAL IV SCH ×5 (01:04→23:40)
[2019-11-10] MEDS: HYDROmorphone 0.5 MG/0.5 ML SYRINGE IVP PRN (02:21)
[2019-11-10] MEDS: SODIUM CHLORIDE 0.9% 1,000 ML IV SCH (05:47)
[2019-11-10 06:46] LABS: Basophils % (A) 0 %; Eosinophils % (A) 0 %; HGB 11.2 gm/dL (13.0-17.5); Lymphocytes # (A) 0.4 k/uL (1.0-4.8); Lymphocytes % (A) 4 %; MCH 31.4 pg (25.0-35.0); MCHC 31.3 g/dL (31.0-37.0); MCV 100.5 fL (80.0-100.0); Mean Platelet Volume 8.3; Monocytes # (A) 0.2 k/uL (0-1.0); Monocytes % (A) 2 %; Neutrophils # (A) 9.1 k/uL (1.3-7.7); Neutrophils % (A) 94 %; Platelet Count 315 k/uL (150-450); RBC 3.58 m/uL (4.30-5.90); WBC 9.7 k/uL (3.8-10.6)
[2019-11-10 06:54] LABS: ALT 73 U/L (4-49); AST 93 U/L (17-59); African American GFR (CKD) >90 (>60 ml/min/1.73 sqM); Albumin 2.6 g/dL (3.5-5.0); Alkaline Phosphatase 834 U/L (38-126); Anion Gap 7 mmol/L; Blood Urea Nitrogen 14 mg/dL (9-20); Calcium 8.5 mg/dL (8.4-10.2); Carbon Dioxide 25 mmol/L (22-30); Chloride 101 mmol/L (98-107); Glucose 128 mg/dL (74-99); Non-African American GFR(CKD) >90 (>60 ml/min/1.73 sqM); Potassium 4.3 mmol/L (3.5-5.1); Sodium 133 mmol/L (137-145); Total Bilirubin 5.6 mg/dL (0.2-1.3); Total Protein 5.6 g/dL (6.3-8.2)
[2019-11-10 07:13] LABS: Glucose,Whole Blood 151 mg/dL (75-99)
[2019-11-10] MEDS: INSULIN ASPART (NovoLOG) 100 UNIT/ML VIAL SQ SCH ×4 (08:00→20:42)
[2019-11-10] MEDS: PANTOPRAZOLE 40 MG TABLET PO SCH (08:11)
[2019-11-10] MEDS: FOLIC ACID 1 MG TAB PO SCH (08:12)
[2019-11-10] MEDS: SYMBICORT 160-4.5 MCG INHALER INHALATION SCH ×2 (08:34→20:41)
[2019-11-10] MEDS: ALBUTEROL HFA INHALER INHALATION SCH ×4 (08:34→20:41)
[2019-11-10] MEDS ORDERED: INDOMETHACIN 50MG SUPPOSITORY RECTAL ONE (09:00)
[2019-11-10] MEDS ORDERED: LIDOCAINE 1% INJ 10MG/ML (20 ML MDV) ONE (09:46)
[2019-11-10] MEDS ORDERED: GLYCOPYRROLATE 0.2 MG/ML 2 ML VIAL ONE (09:46)
[2019-11-10] MEDS ORDERED: PROPOFOL 10 MG/ML 20 ML VIAL IV ONE (09:46)
[2019-11-10] MEDS ORDERED: MIDAZOLAM 2 MG/2 ML VIAL ONE (09:46)
[2019-11-10] MEDS ORDERED: KETAMINE 10 MG/ML 20 ML VIAL ONE (09:46)
[2019-11-10] MEDS ORDERED: GLUCAGON 1 MG/ML VIAL ONE (09:46)
[2019-11-10] MEDS ORDERED: IV FLUID CONTINUATION 1,000 ML IV ONE ×2 (09:48)
[2019-11-10] MEDS ORDERED: IOPAMIDOL-300 50ML BTL MISCELLANE ONE (10:44)
--- NOTE | 2019-11-10 11:00 | P.PCN ---
Date of Procedure: 11/10/19 Procedure(s) Performed: Brief history: Patient is a 51 year-old pleasant white male scheduled for an ERCP as part of evaluation of jaundice and elevated serum transaminases . Progressive weight loss of 50 pounds in the last 6 months duration. The abdomen done yesterday showed dilated intra-and extrahepatic biliary system with a possible pancreatic mass. Procedure performed: ERCP with brush cytology, CBD stent placement EGD with biopsy Preoperative diagnoses: Jaundice/possible pancreatic mass IV sedation per anesthesia: Procedure: After informed consent was obtained from the patient and after the risks benefits and complications including bleeding perforation and pancreatitis explained in detail the patient was brought into the endoscopy unit. The patient was placed in prone position and IV conscious sedation was administered by anesthesia under continuous monitoring. The Olympus side-viewing duodenoscope was then inserted into the mouth and esophagus intubated without any difficulty. The scope was gradually advanced into the stomach and duodenum. The major papilla was identified without any difficulty. Initial cannulation resulted in a week's vacation of the pancreatic duct. Upon injection of the dye there was long stricture noted in the proximal and mid pancreatic duct. Despite multiple attempts I was not able to advance the wire into the pancreatic duct and hence cytology could not be performed. Subsequently I was able to cannulate the common bile duct and upon injection of the dye the proximal common bile duct appeared dilated to 1.5 cm with the irregular distal common bile duct stricture measuring 2 cm in length. At this time brush cytology was performed of the distal common bile duct following which a 7-Mosotho 5 cm [place] stent was placed into the proximal CBD with good drainage of the bite. As the scope was gradually being withdrawn multiple raised lesions with central ulceration were noted in the fundus of the stomach. I could not biopsy with the side-viewing scope. Hence the scope was removed and a forward-viewing EGD scope was advanced into the mouth and esophagus intubated without any difficulty and was gradually advanced into the stomach. Under direction there were at least 6 raised lesions each measuring about 1-1.5 cm in size with central ulceration noted area and multiple biopsies were done from these areas. There was a small hiatal hernia noted. Patient tolerated the procedure well. Impression: 1. Tight distal common bile duct stricture measuring 2 cm in length with proximal biliary dilation status post CBD brush cytology followed by 7-Mosotho, 5 cm [place] CBD stent placement as described above 2. Irregular stricture involving the entire pancreatic duct and the guidewire could not be passed into the pancreatic duct hence cytology could not be performed 3/ Multiple raised lesions measuring 1-1.5 cm in size with central ulceration noted in the fundus of the stomach status post biopsies Recommendations: The findings of this examination were discussed with the patient. At this time will await the biopsy results. In the meantime he will be started on a clear liquid diet and repeat labs in the morning.
--- NOTE | 2019-11-10 11:12 | FL ---
Fluoroscopy INDICATION: Pain FINDINGS: Fluoroscopy time: 1.59 minutes. Images obtained: 2. IMPRESSIONS: 1. Documentation of fluoroscopy.
[2019-11-10] MEDS: HYDROcodone/APAP 5-325MG 1 EACH TAB PO PRN ×2 (13:00→20:43)
[2019-11-10] MEDS: AZITHROMYCIN 500 MG in SODIUM CHLORIDE 0.9% 250 ML IVPB SCH (13:07)
[2019-11-10] MEDS: THIAMINE 100 MG TAB PO SCH (13:23)
[2019-11-10] MEDS: MULTIVITAMINS, THERA 1 EACH TAB PO SCH (13:23)
[2019-11-10 13:32] LABS: Glucose,Whole Blood 180 mg/dL (75-99)
--- NOTE | 2019-11-10 15:00 | PN ---
PROGRESS NOTE DATE OF SERVICE: 11/10/2019 REASON FOR FOLLOWUP: 1. Sacral pressure ulcer. 2. Possible pneumonia. INTERVAL HISTORY: The patient is currently afebrile. The patient is breathing comfortably. No chest pain, shortness of breath or cough. No abdominal pain. Pain to the sacral wound area. PHYSICAL EXAMINATION: Blood pressure 135/82 with a pulse of 87, temperature 98.4, he is 98% on room air. General description is a middle-aged male, lying in bed in no distress. RESPIRATORY SYSTEM: Unlabored breathing, clear to auscultation anteriorly. HEART: S1, S2. Regular rate and rhythm. ABDOMEN: Soft, no tenderness. LABS: Hemoglobin is 11.2, white count 9.7, BUN of 14, creatinine 0.45. Wound cultures currently pending. DIAGNOSTIC IMPRESSION/PLAN: 1. Patient admitted to the hospital with weakness. This patient did not have evidence of obstructive jaundice. Patient is status post ERCP, biopsy and stent placement. 2. Question of possible pneumonia. 3. Sacral wound, local wound care to continue with Medihoney followed by moist dressing, keep the area off the pressure. MMODL / IJN: [id number] /
--- NOTE | 2019-11-10 15:24 | P.PN ---
Subjective Progress Note Date: 11/10/19 Principal diagnosis: This is a 59-year-old male who was recently admitted with significant weakness and diminished oral intake and is being closely monitored. Patient is being seen and evaluated by GI and underwent ERCP today showing a tight distal common bile duct stricture measuring 2 cm in length with proximal biliary dilation status post CBD brush cytology along with a CBD stent placement, irregular stricture involving the entire pancreatic duct, and multiple raised lesions measuring 1-1.5 cm in size with central ulceration noted in the fundus of the stomach and biopsies were obtained. Currently awaiting biopsies as they are pending. Patient was initiated on clear liquid diet and tolerating although patient states he would like and advance in his diet. Patient underwent nuclear bone scan showing a focus of radiotracer accumulation in the posterior medial right 11th or 12th rib that is nonspecific and may likely be due to trauma with solitary metastasis less likely, photopenic defects within the proximal right femur, degenerative type joint changes especially noted in bilateral knees and ankles, consider possible hydronephrosis and hydroureter of the left renal collecting system with additional workup considered. Multiple medical consultations following. Patient is having a lot of sacral discomfort and is currently off loading of the area. Infectious disease is following. Patient also underwent a CT of the brain showing no acute intracranial hemorrhage or midline shift with mild to moderate diffuse cerebral atrophy and mild chronic small vessel ischemic changes noted with suspected metastatic osseous lesion to the left mastoid region inferior aspect. Multiple medical consultations following an currently awaiting an oncology consult. Prognosis is extremely guarded. Review of systems: Constitutional: No reports of fevers or fatigue Cardiovascular: No reports of chest pain or palpitations Respiratory: No reports of shortness of breath or cough GI: No reports of nausea, vomiting, or diarrhea : No reports of dysuria or retention Active Medications Hydrocodone Bitart/Acetaminophen ([place] 5-325) 1 each PO Q6HR PRN PRN Reason: Pain Last Admin: 11/10/19 13:00 Dose: 1 each Documented by: Albuterol Sulfate (Ventolin Hfa Inhaler) 2 puff INHALATION RT-QID [facility] Last Admin: 11/10/19 14:43 Dose: Not Given Documented by: Budesonide/Formoterol Fumarate (Symbicort 160-4.5 Mcg Inhaler) 2 puff INHALATION RT-BID [facility] Last Admin: 11/10/19 08:34 Dose: Not Given Documented by: Folic Acid (Folic Acid) 1 mg PO DAILY@1200 [facility] Last Admin: 11/10/19 08:12 Dose: 1 mg Documented by: Hydromorphone HCl (Dilaudid) 0.5 mg IVP Q6HR PRN PRN Reason: Severe Pain Last Admin: 11/10/19 02:21 Dose: 0.5 mg Documented by: Sodium Chloride (Saline 0.9%) 1,000 mls @ 20 mls/hr IV .Q24H [facility] Last Admin: 11/10/19 05:47 Dose: 20 mls/hr Documented by: Ceftriaxone Sodium 1 gm/ (Sodium Chloride) 50 mls @ 100 mls/hr IVPB Q24HR [facility] Last Admin: 11/10/19 08:11 Dose: 100 mls/hr Documented by: Azithromycin 500 mg/ Sodium (Chloride) 250 mls @ 250 mls/hr IVPB DAILY [facility] Last Admin: 11/10/19 13:07 Dose: 250 mls/hr Documented by: Insulin Aspart (Novolog) 0 unit SQ [facility]; Protocol Last Admin: 11/10/19 13:51 Dose: 2 unit Documented by: Lorazepam (Ativan) 1 mg IV Q4HR PRN PRN Reason: Anxiety Methylprednisolone Sodium Succinate (Solu-Medrol) 60 mg IV Q6HR [facility] Last Admin: 11/10/19 13:23 Dose: 60 mg Documented by: Multivitamins (Theragran) 1 each PO DAILY@1200 [facility] Last Admin: 11/10/19 13:23 Dose: 1 each Documented by: Naloxone HCl (Narcan) 0.2 mg IV Q2M PRN PRN Reason: Opioid Reversal Pantoprazole Sodium (Protonix) 40 mg PO AC-BRKFST [facility] Last Admin: 11/10/19 08:11 Dose: 40 mg Documented by: Thiamine HCl (Vitamin B-1) 100 mg PO DAILY@1200 [facility] Last Admin: 11/10/19 13:23 Dose: 100 mg Documented by: Objective - Vital Signs Vital signs: Vital Signs Temp 98 F 11/10/19 05:00 Pulse 86 11/10/19 05:00 Resp 21 11/10/19 05:00 BP 139/82 11/10/19 05:00 Pulse Ox 92 L 11/10/19 05:00 Intake & Output 11/09/19 11/10/1911/09/20 18:59 06:59 18:59 Intake Total 920 600 Output Total 500 Balance 420 600 Weight 52.163 kg Intake: IV 600 Intake, IV Titration 220 Amount Sodium Chloride 0.9% 1, 220 000 ml @ 20 mls/hr IV . Q24H [facility] Rx#:[id number] Oral 700 Output: Urine 500 Other: Voiding Method Urinal Urinal Urinal # Voids 0 2 # Bowel Movements 1 - Exam GENERAL: Patient is awake and alert and oriented 3. Temp is 98F, pulse is 86, respirations are 21, blood pressure is 139/82, oxygen saturation is 92% on room air. HEENT: Pupils are round and equally reacting to light. EOMI. No scleral icterus. No conjunctival pallor. Normocephalic, atraumatic. No pharyngeal erythema. No thyromegaly. CARDIOVASCULAR: S1 and S2 are muffled. No murmurs, rubs, or gallops. PULMONARY: Diminished breath sounds at the bases with a few scattered rhonchi and crackles noted. ABDOMEN: Soft, scaphoid, nondistended, normoactive bowel sounds. No palpable organomegaly. MUSCULOSKELETAL: No joint swelling or deformity. EXTREMITIES: No cyanosis, clubbing, or bilateral lower extremity edema noted NEUROLOGICAL: Moving all 4 limbs, diffusely weak, wasted and emaciated SKIN: No rashes. - Labs CBC & Chem 7: 11/10/19 05:53 11/10/19 05:53 Labs: Abnormal Lab Results - Last 24 Hours (Table) 11/09/19 11/09/19 11/09/19 Range/Units 14:42 14:42 17:17 RBC (4.30-5.90) m/uL Hgb (13.0-17.5) gm/dL Hct (39.0-53.0) % MCV (80.0-100.0) fL Neutrophils # (1.3-7.7) k/uL Lymphocytes # (1.0-4.8) k/uL Sodium (137-145) mmol/L Creatinine (0.66-1.25) mg/dL Glucose (74-99) mg/dL POC Glucose (mg/dL) 141 H (75-99) mg/dL Total Bilirubin (0.2-1.3) mg/dL AST (17-59) U/L ALT (4-49) U/L Alkaline Phosphatase (38-126) U/L Total Protein (6.3-8.2) g/dL Albumin (3.5-5.0) g/dL Urine Protein Trace H (Negative) Urine Glucose (UA) 4+ H (Negative) Urine Bilirubin 2+ H (Negative) Urine Opiates Screen Detected H (NotDetected) 11/09/19 11/10/19 11/10/19 Range/Units 20:42 05:53 05:53 RBC 3.58 L (4.30-5.90) m/uL Hgb 11.2 L (13.0-17.5) gm/dL Hct 36.0 L (39.0-53.0) % MCV 100.5 H (80.0-100.0) fL Neutrophils # 9.1 H (1.3-7.7) k/uL Lymphocytes # 0.4 L (1.0-4.8) k/uL Sodium 133 L (137-145) mmol/L Creatinine 0.45 L (0.66-1.25) mg/dL Glucose 128 H (74-99) mg/dL POC Glucose (mg/dL) 162 H (75-99) mg/dL Total Bilirubin 5.6 H (0.2-1.3) mg/dL AST 93 H (17-59) U/L ALT 73 H (4-49) U/L Alkaline Phosphatase 834 H (38-126) U/L Total Protein 5.6 L (6.3-8.2) g/dL Albumin 2.6 L (3.5-5.0) g/dL Urine Protein (Negative) Urine Glucose (UA) (Negative) Urine Bilirubin (Negative) Urine Opiates Screen (NotDetected) 11/10/19 Range/Units 07:11 RBC (4.30-5.90) m/uL Hgb (13.0-17.5) gm/dL Hct (39.0-53.0) % MCV (80.0-100.0) fL Neutrophils # (1.3-7.7) k/uL Lymphocytes # (1.0-4.8) k/uL Sodium (137-145) mmol/L Creatinine (0.66-1.25) mg/dL Glucose (74-99) mg/dL POC Glucose (mg/dL) 151 H (75-99) mg/dL Total Bilirubin (0.2-1.3) mg/dL AST (17-59) U/L ALT (4-49) U/L Alkaline Phosphatase (38-126) U/L Total Protein (6.3-8.2) g/dL Albumin (3.5-5.0) g/dL Urine Protein (Negative) Urine Glucose (UA) (Negative) Urine Bilirubin (Negative) Urine Opiates Screen (NotDetected) Microbiology - Last 24 Hours (Table) 11/08/19 14:55 Blood Culture - Preliminary Blood No Growth after 24 hours Assessment and Plan Assessment: Obstructive jaundice with intra-and extrahepatic biliary dilatation, possibly secondary to pancreatic malignancy, head of the pancreas Status post ERCP showing tight distal common bile duct stricture measuring 2 cm in length with proximal biliary dilation status post CBD stent placement with multiple raised lesions measuring 1-1.5 cm in size with central ulceration noted in the fundus of the stomach status post biopsies Covid 19 ruled out Chronic obstructive pulmonary disease, acute exacerbation, with acute purulent tracheobronchitis with possible sepsis, present on admission Hyponatremia Severe remains sedation Possible metastatic malignancy with multiple lesions in the bones and also lymphadenopathy in the chest Anemia of chronic disease History of ethanol Hypertension History of anxiety History of ongoing continued nicotine dependence Severe protein calorie malnutrition with a body mass index of 16.5 History of recent weight loss Gait dysfunction Full code Recommendations and discussion: Recommend continue current medications, management, and symptomatic treatment. Patient underwent ERCP today with CBD stent placement and biopsies obtained and are pending at this time. Awaiting oncology consult. Multiple medical consulta tions following. When discussing with the patient about possible rehab upon discharge patient made comments that he will never go to a rehab facility unless he is actively dying. Nursing staff was present during this statement. Case management and social work following to assess and aid in possible discharge planning needs. Due to multiple complex medical issues, prognosis is extremely guarded. Further recommendations to follow.
--- NOTE | 2019-11-10 16:29 | P.CONS ---
History of Present Illness - Reason for Consult Consult date: 11/10/19 Pancreatic Mass Requesting physician: Jorge King - Chief Complaint Pain - History of Present Illness Mr. Thompson is a 59 year old male who has known history of tobacco and alcohol abuse/dependance. He also has a history of hypertension and anxiety. He presented to emergency via ems with weaknes, bilateral extremity edema and juandice. A CT scan revealed intra and extrahepatic biliary dilation and 7x5.1x3.2cm pancreatic head mass, suspicious osseous mets, and pathologic fractures of L3L4. Because of these finding medical oncology was consulted. When first seen he was open to undergoing testing and hearing options, then he quickly switched mind and states he does not want any further work-up. He did go for ERCP, in where biopsies were obtained. We will await these and further decisions on goals of care from patient. Review of Systems A 14 point review of systems assessed and completed and all neg except HPI. Past Medical History Past Medical History: No Reported History, Hypertension Additional Past Medical History / Comment(s): fatty tissue on right cheek and came in with pressure ulcer on coccyx History of Any Multi-Drug Resistant Organisms: None Reported Past Surgical History: Orthopedic Surgery Additional Past Surgical History / Comment(s): left ankle sx Past Anesthesia/Blood Transfusion Reactions: No Reported Reaction Past Psychological History: Anxiety Smoking Status: Current some day smoker Past Alcohol Use History: None Reported, Daily, Heavy Past Drug Use History: None Reported - Past Family History Mother Additional Family Medical History / Comment(s): of colon cancer Father History Unknown: Yes Additional Family Medical History / Comment(s): etoh Medications and Allergies Home Medications Medication Instructions Recorded Confirmed Type No Known Home Medications 11/08/19 11/08/19 History Allergies Allergy/AdvReac Type Severity Reaction Status Date / Time No Known Allergies Allergy Verified 11/08/19 14:29 Physical Exam Vitals: Vital Signs Temp Pulse Resp BP Pulse Ox 11/10/19 14:00 97.4 F L 87 18 135/82 98 11/10/19 05:00 98 F 86 21 139/82 92 L 11/09/19 21:00 97.8 F 97 18 128/73 92 L 11/09/19 20:55 18 Intake and Output 11/10/19 11/10/19 11/10/19 06:59 14:59 22:59 Intake Total 370 900 Output Total 500 Balance -130 900 Intake: IV 600 Intake, IV Titration 120 300 Amount Azithromycin 500 mg In 250 Sodium Chloride 0.9% 250 ml @ 250 mls/hr IVPB DAILY [facility] Rx#:[id number] Sodium Chloride 0.9% 1, 120 000 ml @ 20 mls/hr IV . Q24H [facility] Rx#:[id number] cefTRIAXone 1 gm In 50 Sodium Chloride 0.9% 50 ml @ 100 mls/hr IVPB Q24HR [facility] Rx#:[id number] Oral 250 Output: Urine 500 Other: Voiding Method Urinal # Voids 2 Gen: Alert and Flat affect Head: NCAT Neck Supple Lungs: Diminished, Mild increase effort Abdomen: Distended, Tender Ext: Edema bilateral Mood: ANxious Results CBC & Chem 7: 11/10/19 05:53 11/10/19 05:53 Labs: Abnormal Lab Results - Last 24 Hours (Table) 11/09/19 11/09/19 11/10/19 Range/Units 17:17 20:42 05:53 RBC 3.58 L (4.30-5.90) m/uL Hgb 11.2 L (13.0-17.5) gm/dL Hct 36.0 L (39.0-53.0) % MCV 100.5 H (80.0-100.0) fL Neutrophils # 9.1 H (1.3-7.7) k/uL Lymphocytes # 0.4 L (1.0-4.8) k/uL Sodium (137-145) mmol/L Creatinine (0.66-1.25) mg/dL Glucose (74-99) mg/dL POC Glucose (mg/dL) 141 H 162 H (75-99) mg/dL Total Bilirubin (0.2-1.3) mg/dL AST (17-59) U/L ALT (4-49) U/L Alkaline Phosphatase (38-126) U/L Total Protein (6.3-8.2) g/dL Albumin (3.5-5.0) g/dL 11/10/19 11/10/19 11/10/19 Range/Units 05:53 07:11 13:30 RBC (4.30-5.90) m/uL Hgb (13.0-17.5) gm/dL Hct (39.0-53.0) % MCV (80.0-100.0) fL Neutrophils # (1.3-7.7) k/uL Lymphocytes # (1.0-4.8) k/uL Sodium 133 L (137-145) mmol/L Creatinine 0.45 L (0.66-1.25) mg/dL Glucose 128 H (74-99) mg/dL POC Glucose (mg/dL) 151 H 180 H (75-99) mg/dL Total Bilirubin 5.6 H (0.2-1.3) mg/dL AST 93 H (17-59) U/L ALT 73 H (4-49) U/L Alkaline Phosphatase 834 H (38-126) U/L Total Protein 5.6 L (6.3-8.2) g/dL Albumin 2.6 L (3.5-5.0) g/dL Microbiology - Last 24 Hours (Table) 11/08/19 14:55 Blood Culture - Preliminary Blood No Growth after 24 hours Assessment and Plan Plan: Assessment and Recommendations: 1. Pancreatic Head Mass: - Status Post ERCP and Tissue Biopsy today distal common bile duct stricture measuring 2 cm in length with proximal biliary dilation status post CBD stent placement with multiple raised lesions measuring 1-1.5 cm in size with central ulceration noted in the fundus of the stomach status post biopsies - Await results of pathology, although patient is currently refusing further d iagnostics or treatment. His sister will be present tomorrow to discuss plan for either further treatment or discharge options - Concern for metastatic cancer picture, consistent with a pancreatic primary, await path. 2. Obstructive Jaundice with Intra and extra hepatic biliary dilation: - Likely secondary malignant presentation 3. Coccal Wound PLan: - Await path and patients decision regarding further work-up and treatment options. Physician Attest:I have completed the ful history and physical and agree with above dictation, dictated as a scrine
[2019-11-10 17:34] LABS: Glucose,Whole Blood 117 mg/dL (75-99)
[2019-11-10 20:14] LABS: Glucose,Whole Blood 208 mg/dL (75-99)
[2019-11-11] MEDS: methylPREDNISolone SOD SUCCI 125 MG/2 ML VIAL IV SCH ×4 (05:43→23:38)
[2019-11-11] MEDS: SODIUM CHLORIDE 0.9% 1,000 ML IV SCH (06:27)
[2019-11-11 07:04] LABS: Glucose,Whole Blood 156 mg/dL (75-99)
[2019-11-11 07:23] LABS: Basophils % (A) 0 %; Eosinophils % (A) 0 %; HCT 35.3 % (39.0-53.0); HGB 11.4 gm/dL (13.0-17.5); Lymphocytes # (A) 0.4 k/uL (1.0-4.8); Lymphocytes % (A) 5 %; MCH 32.3 pg (25.0-35.0); MCHC 32.2 g/dL (31.0-37.0); MCV 100.1 fL (80.0-100.0); Mean Platelet Volume 8.4; Monocytes # (A) 0.3 k/uL (0-1.0); Monocytes % (A) 3 %; Neutrophils # (A) 7.8 k/uL (1.3-7.7); Neutrophils % (A) 91 %; Platelet Count 308 k/uL (150-450); RBC 3.53 m/uL (4.30-5.90); RDW 12.9 % (11.5-15.5); WBC 8.6 k/uL (3.8-10.6)
[2019-11-11 07:50] LABS: ALT 114 U/L (4-49); AST 140 U/L (17-59); African American GFR (CKD) >90 (>60 ml/min/1.73 sqM); Albumin 2.5 g/dL (3.5-5.0); Alkaline Phosphatase 1041 U/L (38-126); Anion Gap 6 mmol/L; Blood Urea Nitrogen 15 mg/dL (9-20); Carbon Dioxide 25 mmol/L (22-30); Chloride 102 mmol/L (98-107); Glucose 115 mg/dL (74-99); Non-African American GFR(CKD) >90 (>60 ml/min/1.73 sqM); Potassium 4.3 mmol/L (3.5-5.1); Sodium 133 mmol/L (137-145); Total Bilirubin 5.1 mg/dL (0.2-1.3); Total Protein 5.3 g/dL (6.3-8.2)
[2019-11-11] MEDS: FOLIC ACID 1 MG TAB PO SCH (07:59)
[2019-11-11] MEDS: PANTOPRAZOLE 40 MG TABLET PO SCH (07:59)
[2019-11-11] MEDS: MULTIVITAMINS, THERA 1 EACH TAB PO SCH (07:59)
[2019-11-11] MEDS: THIAMINE 100 MG TAB PO SCH (07:59)
[2019-11-11] MEDS: INSULIN ASPART (NovoLOG) 100 UNIT/ML VIAL SQ SCH ×4 (07:59→20:53)
[2019-11-11] MEDS: ALBUTEROL HFA INHALER INHALATION SCH ×4 (08:06→20:26)
[2019-11-11] MEDS: SYMBICORT 160-4.5 MCG INHALER INHALATION SCH ×2 (08:07→20:26)
[2019-11-11] MEDS: AZITHROMYCIN 500 MG in SODIUM CHLORIDE 0.9% 250 ML IVPB SCH (10:07)
[2019-11-11] MEDS: HYDROcodone/APAP 5-325MG 1 EACH TAB PO PRN (10:17)
[2019-11-11 11:19] LABS: Folate, Serum 8.7 ng/mL
--- NOTE | 2019-11-11 11:20 | P.PN ---
Subjective Progress Note Date: 11/11/19 Principal diagnosis: Generalized weakness his is a 59-year-old gentleman who follows with Dr. Mendez as his primary care provider. He has a history of hypertension, anxiety, chronic tobacco dependence, heavy alcohol abuse. He stated he did quit drinking about 3 months ago. He was brought in by EMS to the emergency room yesterday with generalized weakness lower extremity edema and jaundice. He had been having diarrhea and stated his bowel movements have been green. He's been short of breath and had a loose nonproductive cough for several months now. He had been seen by our group approximately a year ago for acute hypoxic respiratory failure secondary to COPD exacerbation and tracheobronchitis. Chest x-ray at that time showed no acute pulmonary process. Yesterday's chest x-ray revealed evidence of COPD with patchy peripheral right midlung density, developing pneumonia not excluded. There is also a right hilar soft tissue prominence suspicious for underlying l ymphadenopathy/mass. Ultrasound of the gallbladder revealed hydropic gallbladder with hepatic dilatation and bulky heterogenous appearance of the pancreas. Unable to exclude pancreatic head mass and secondary biliary obstruction. Calcifications and sludge within the distended gallbladder. Dopplers of the lower extremities were negative for DVT. Computed tomography scan of the chest abdomen and pelvis revealed intrahepatic and extrahepatic biliary ductal dilatation. Unable to exclude a 7.0 x 5.1 x 3.2 cm pancreatic head mass/pancreatic adenocarcinoma. There is also noted mediastinal and right hilar lymphadenopathy measuring up to 2.9 cm suspicious for metastatic disease. There is also osseous metastatic disease with permeative distraction of the left acetabulum and left ischium. Permeative lucency within the superior right acetabulum. Pathologic compression fractures of L3 and L4. Moderate spinal canal stenosis. Hydropic gallbladder with mild wall thickening. Patchy density in the right lung. The patient is seen today in consultation on the regular medical floor. He is c urrently awake and alert in no acute distress. He is quite cachectic appearing disheveled. Maintaining O2 saturation in the 90s on room air. He's been afebrile. Hemodynamically stable. Coccyx wound culture pending. White count 7.1. Hemoglobin 11.3. MCV 101. Sodium 135. Potassium 4.2. Creatinine 0.44. AST 75. ALT 62. Alk phos 653. CA 199 antigen 130. Coronavirus by PCR not detected. He has been initiated on ceftriaxone and azithromycin along with Symbicort, IV Solu-Medrol and albuterol. On 11/11/2019 patient seen in follow-up on general oncology floor. He is status post ERCP with brush cytology, CBD stent placement and EGD with biopsy for diagnosis of jaundice and possible pancreatic mass. There was irregular stricture involving the entire pancreatic duct and the guidewire could not be passed into the pancreatic duct and cytology could not be performed. There was central ulcerations within the fundus of the stomach that were biopsied. Currently the biopsies are pending. Patient is seen resting comfortably in bed, denies any distress, room air pulse ox of 94-96%, hemodynamically stable, his been afebrile. No complaints of shortness of breath, today's lab work has been reviewed showing white blood cell count of 8.6, hemoglobin of 11.4, serum sodium is 133, the rest of electrolytes are within normal limits, BUN 16 creatinine 0.59, LFTs have increased with AST of 140, ALT of 114, and alkaline phosphatase of 1041. Patient remains on Rocephin and azithromycin. Lung sounds are positive for some scattered rhonchi, patient is on IV steroids and inhalers. Objective - Vital Signs Vital signs: Vital Signs Temp 98.4 F 11/11/19 05:00 Pulse 79 11/11/19 05:00 Resp 16 11/11/19 05:00 BP 151/82 11/11/19 05:00 Pulse Ox 94 L 11/11/19 05:00 Intake & Output 11/10/19 11/11/19 11/11/19 18:59 06:59 18:59 Intake Total 900 590 Output Total 800 Balance 900 -210 Intake: IV 600 Intake, IV Titration 300 Amount Azithromycin 500 mg In 250 Sodium Chloride 0.9% 250 ml @ 250 mls/hr IVPB DAILY [facility] Rx#:[id number] cefTRIAXone 1 gm In 50 Sodium Chloride 0.9% 50 ml @ 100 mls/hr IVPB Q24HR [facility] Rx#:[id number] Oral 590 Output: Urine 800 Other: Voiding Method Urinal Urinal - Exam GENERAL EXAM: Alert, cachectic 59-year-old white male, on room air, with a pulse ox of 94-96%, comfortable in no apparent distress. HEAD: Normocephalic/atraumatic. EYES: Normal reaction of pupils, equal size. Conjunctiva pink, sclera white. NOSE: Clear with pink turbinates. THROAT: No erythema or exudates. NECK: No masses, no JVD, no thyroid enlargement, no adenopathy. CHEST: No chest wall deformity. Symmetrical expansion. LUNGS: Equal air entry with diffuse rhonchi CVS: Regular rate and rhythm, normal S1 and S2, no gallops, no murmurs, no rubs ABDOMEN: Soft, nontender. No hepatosplenomegaly, normal bowel sounds, no guarding or rigidity. EXTREMITIES: No clubbing, no edema, no cyanosis, 2+ pulses and upper and lower extremities. MUSCULOSKELETAL: Muscle strength and tone normal. SPINE: No scoliosis or deformity SKIN: No rashes CENTRAL NERVOUS SYSTEM: Alert and oriented -3. No focal deficits, tone is normal in all 4 extremities. PSYCHIATRIC: Alert and oriented -3. Appropriate affect. Intact judgment and insight. - Labs CBC & Chem 7: 11/11/19 06:00 11/11/19 06:00 Labs: Abnormal Lab Results - Last 24 Hours (Table) 11/10/19 11/10/19 11/10/19 Range/Units 13:30 17:33 20:13 RBC (4.30-5.90) m/uL Hgb (13.0-17.5) gm/dL Hct (39.0-53.0) % MCV (80.0-100.0) fL Neutrophils # (1.3-7.7) k/uL Lymphocytes # (1.0-4.8) k/uL Sodium (137-145) mmol/L Creatinine (0.66-1.25) mg/dL Glucose (74-99) mg/dL POC Glucose (mg/dL) 180 H 117 H 208 H (75-99) mg/dL Calcium (8.4-10.2) mg/dL Total Bilirubin (0.2-1.3) mg/dL AST (17-59) U/L ALT (4-49) U/L Alkaline Phosphatase (38-126) U/L Total Protein (6.3-8.2) g/dL Albumin (3.5-5.0) g/dL 11/11/19 11/11/19 11/11/19 Range/Units 06:00 06:00 07:01 RBC 3.53 L (4.30-5.90) m/uL Hgb 11.4 L (13.0-17.5) gm/dL Hct 35.3 L (39.0-53.0) % MCV 100.1 H (80.0-100.0) fL Neutrophils # 7.8 H (1.3-7.7) k/uL Lymphocytes # 0.4 L (1.0-4.8) k/uL Sodium 133 L (137-145) mmol/L Creatinine 0.59 L (0.66-1.25) mg/dL Glucose 115 H (74-99) mg/dL POC Glucose (mg/dL) 156 H (75-99) mg/dL Calcium 8.0 L (8.4-10.2) mg/dL Total Bilirubin 5.1 H (0.2-1.3) mg/dL AST 140 H (17-59) U/L ALT 114 H (4-49) U/L Alkaline Phosphatase 1041 H (38-126) U/L Total Protein 5.3 L (6.3-8.2) g/dL Albumin 2.5 L (3.5-5.0) g/dL Microbiology - Last 24 Hours (Table) 11/08/19 17:20 Gram Stain - Final Other - Other Wound Culture - Final 11/08/19 14:55 Blood Culture - Preliminary Blood No Growth after 48 hours Assessment and Plan Plan: Assessment: 1 Generalized weakness secondary to suspected pancreatic adenocarcinoma with metastasis to the lung, bone. CA 199 antigen 130. Patient is status post ERCP with brush cytology, CBD stent placement, and EGD with biopsy, biopsies are pending at this time 2 Mediastinal and right hilar lymphadenopathy measuring up to 2.9 cm suspicious for metastatic disease. There is also a patchy density in the right lung cannot rule out developing pneumonia 3 Permeative distraction of the left acetabulum and left moe along with the superior right acetabulum suspicious for osseous metastatic disease. Pathologic compression fractures of L3 and L4 with moderate spinal canal stenosis 4 Hydropic gallbladder with mild wall thickening suspect secondary to biliary obstruction versus acute cholecystitis 5 Chronic and ongoing tobacco dependence 6 Chronic heavy alcohol use, states quit 3 months ago 7 Decubitus ulcer in the coccyx 8 Protein calorie malnutrition, BMI 16.5 9 Elevated LFTs. 10 Poor overall functional performance based on the above-mentioned multiple comorbidities Plan: Continue current medical treatment, continue inhalers, and IV steroids, empiric antibiotics, vital signs are stable, awaiting results of the biopsies from the ERCP with brush cytology. Suspect metastatic malignancy, we'll follow the biopsy results. We'll continue to follow I performed a history & physical examination of the patient and discussed their management with my nurse practitioner, Ann Dejesus. I reviewed the nurse practitioner's note and agree with the documented findings and plan of care. Lung sounds are positive for diffuse rhonchi. The findings and the impression was discussed with the patient. I attest to the documentation by the nurse practitioner. Time with Patient: Less than 30
[2019-11-11 11:21] LABS: Glucose,Whole Blood 175 mg/dL (75-99)
[2019-11-11 11:47] LABS: % Iron Saturation 46.39 (15.00-50.00); Ferritin 1491.6 ng/mL (22.0-322.0); Iron 77 ug/dL (65-175); Total Iron Binding Capacity 166 ug/dL (228-460)
[2019-11-11] MEDS: LACTATED RINGERS 1,000 ML IV SCH (12:16)
--- NOTE | 2019-11-11 16:14 | P.PN ---
Subjective Progress Note Date: 11/11/19 Principal diagnosis: This is a 59-year-old male who was recently admitted with significant weakness and diminished oral intake and is being closely monitored. Patient is being seen and evaluated by GI and underwent ERCP today showing a tight distal common bile duct stricture measuring 2 cm in length with proximal biliary dilation status post CBD brush cytology along with a CBD stent placement, irregular stricture involving the entire pancreatic duct, and multiple raised lesions measuring 1-1.5 cm in size with central ulceration noted in the fundus of the stomach and biopsies were obtained. Currently awaiting biopsies as they are pending. Patient was initiated on clear liquid diet and tolerating although patient states he would like and advance in his diet. Patient underwent nuclear bone scan showing a focus of radiotracer accumulation in the posterior medial right 11th or 12th rib that is nonspecific and may likely be due to trauma with solitary metastasis less likely, photopenic defects within the proximal right femur, degenerative type joint changes especially noted in bilateral knees and ankles, consider possible hydronephrosis and hydroureter of the left renal collecting system with additional workup considered. Multiple medical consultations following. Patient is having a lot of sacral discomfort and is currently off loading of the area. Infectious disease is following. Patient also underwent a CT of the brain showing no acute intracranial hemorrhage or midline shift with mild to moderate diffuse cerebral atrophy and mild chronic small vessel ischemic changes noted with suspected metastatic osseous lesion to the left mastoid region inferior aspect. Multiple medical consultations following an currently awaiting an oncology consult. Prognosis is extremely guarded. 11/11/2019 Patient is seen and evaluated in follow-up today and continues to have weakness with diminished oral intake and is being closely monitored. Multiple medical consultations following. Patient continues to have some mild abdominal discomfort although states somewhat improved. Patient is urinating and having bowel movements. Patient states his bowel movements have been loose and somewhat semi-formed at times. No bleeding noted. Patient remains on clear li quids at this time and asking for an advancement in diet. No reports of nausea or vomiting noted. Patient was seen and evaluated by oncology and currently waiting biopsy results from the ERCP performed yesterday. Patient initially opened discussion of further treatment and then reports wanting no further treatment done. Social work consulted for possible power of employment law attorney. Current patient's status was discussed in detail with sister and she was here today discussing with her brother about possible discharge plans as he is unable to take care of himself at home and they are unable to care for him given his multiple complex medical issues. Case management and social work are following for possible rehab placement upon discharge. Patient remains on IV antibiotics in the form of Zithromax and ceftriaxone and infectious disease is following. Will continue to monitor closely. Review of systems: Constitutional: No reports of fevers or fatigue Cardiovascular: No reports of chest pain or palpitations Respiratory: No reports of shortness of breath or cough GI: No reports of nausea, vomiting, or diarrhea : No reports of dysuria or retention Active Medications Hydrocodone Bitart/Acetaminophen ([place] 5-325) 1 each PO Q6HR PRN PRN Reason: Pain Last Admin: 11/11/19 10:17 Dose: 1 each Documented by: Albuterol Sulfate (Ventolin Hfa Inhaler) 2 puff INHALATION RT-QID [facility] Last Admin: 11/11/19 11:46 Dose: 2 puff Documented by: Budesonide/Formoterol Fumarate (Symbicort 160-4.5 Mcg Inhaler) 2 puff INHALATION RT-BID [facility] Last Admin: 11/11/19 08:07 Dose: 2 puff Documented by: Folic Acid (Folic Acid) 1 mg PO DAILY@1200 [facility] Last Admin: 11/11/19 07:59 Dose: 1 mg Documented by: Hydromorphone HCl (Dilaudid) 0.5 mg IVP Q6HR PRN PRN Reason: Severe Pain Last Admin: 11/10/19 02:21 Dose: 0.5 mg Documented by: Sodium Chloride (Saline 0.9%) 1,000 mls @ 20 mls/hr IV .Q24H [facility] Last Admin: 11/11/19 06:27 Dose: 20 mls/hr Documented by: Ceftriaxone Sodium 1 gm/ (Sodium Chloride) 50 mls @ 100 mls/hr IVPB Q24HR [facility] Last Admin: 11/11/19 07:58 Dose: 100 mls/hr Documented by: Azithromycin 500 mg/ Sodium (Chloride) 250 mls @ 250 mls/hr IVPB DAILY [facility] Last Admin: 11/11/19 10:07 Dose: 250 mls/hr Documented by: Lactated Ringer's (Lactated Ringers) 1,000 mls @ 20 mls/hr IV .Q24H [facility] Last Admin: 11/11/19 12:16 Dose: Not Given Documented by: Insulin Aspart (Novolog) 0 unit SQ ACHS [facility]; Protocol Last Admin: 11/11/19 13:31 Dose: 2 unit Documented by: Lorazepam (Ativan) 1 mg IV Q4HR PRN PRN Reason: Anxiety Methylprednisolone Sodium Succinate (Solu-Medrol) 60 mg IV Q6HR [facility] Last Admin: 11/11/19 13:26 Dose: 60 mg Documented by: Multivitamins (Theragran) 1 each PO DAILY@1200 [facility] Last Admin: 11/11/19 07:59 Dose: 1 each Documented by: Naloxone HCl (Narcan) 0.2 mg IV Q2M PRN PRN Reason: Opioid Reversal Pantoprazole Sodium (Protonix) 40 mg PO AC-BRKFST [facility] Last Admin: 11/11/19 07:59 Dose: 40 mg Documented by: Thiamine HCl (Vitamin B-1) 100 mg PO DAILY@1200 [facility] Last Admin: 11/11/19 07:59 Dose: 100 mg Documented by: Objective - Vital Signs Vital signs: Vital Signs Temp 98.3 F 11/11/19 10:59 Pulse 93 11/11/19 10:59 Resp 16 11/11/19 10:59 BP 147/85 11/11/19 10:59 Pulse Ox 94 L 11/11/19 10:59 Intake & Output 11/10/19 11/11/19 11/11/19 18:59 06:59 18:59 Intake Total 900 590 Output Total 800 Balance 900 -210 Intake: IV 600 Intake, IV Titration 300 Amount Azithromycin 500 mg In 250 Sodium Chloride 0.9% 250 ml @ 250 mls/hr IVPB DAILY [facility] Rx#:[id number] cefTRIAXone 1 gm In 50 Sodium Chloride 0.9% 50 ml @ 100 mls/hr IVPB Q24HR [facility] Rx#:[id number] Oral 590 Output: Urine 800 Other: Voiding Method Urinal Urinal Urinal - Exam GENERAL: Patient is awake and alert and oriented 3. Temp is 98.3F, pulse is 93, respirations are 16, blood pressure is 147/85, oxygen saturation is 94% on room air. HEENT: Pupils are round and equally reacting to light. EOMI. No scleral icterus. No conjunctival pallor. Normocephalic, atraumatic. No pharyngeal erythema. No thyromegaly. CARDIOVASCULAR: S1 and S2 are muffled. No murmurs, rubs, or gallops. PULMONARY: Diminished breath sounds at the bases with a few scattered rhonchi and crackles noted. ABDOMEN: Soft, scaphoid, nondistended, normoactive bowel sounds. No palpable organomegaly. MUSCULOSKELETAL: No joint swelling or deformity. EXTREMITIES: No cyanosis, clubbing, or bilateral lower extremity edema noted NEUROLOGICAL: Moving all 4 limbs, diffusely weak, wasted and emaciated SKIN: No rashes. - Labs CBC & Chem 7: 11/11/19 06:00 11/11/19 06:00 Labs: Abnormal Lab Results - Last 24 Hours (Table) 11/10/19 11/10/19 11/10/19 Range/Units 13:30 17:33 20:13 RBC (4.30-5.90) m/uL Hgb (13.0-17.5) gm/dL Hct (39.0-53.0) % MCV (80.0-100.0) fL Neutrophils # (1.3-7.7) k/uL Lymphocytes # (1.0-4.8) k/uL Sodium (137-145) mmol/L Creatinine (0.66-1.25) mg/dL Glucose (74-99) mg/dL POC Glucose (mg/dL) 180 H 117 H 208 H (75-99) mg/dL Calcium (8.4-10.2) mg/dL TIBC (228-460) ug/dL Ferritin (22.0-322.0) ng/mL Total Bilirubin (0.2-1.3) mg/dL AST (17-59) U/L ALT (4-49) U/L Alkaline Phosphatase (38-126) U/L Total Protein (6.3-8.2) g/dL Albumin (3.5-5.0) g/dL 11/11/19 11/11/19 11/11/19 Range/Units 06:00 06:00 07:01 RBC 3.53 L (4.30-5.90) m/uL Hgb 11.4 L (13.0-17.5) gm/dL Hct 35.3 L (39.0-53.0) % MCV 100.1 H (80.0-100.0) fL Neutrophils # 7.8 H (1.3-7.7) k/uL Lymphocytes # 0.4 L (1.0-4.8) k/uL Sodium 133 L (137-145) mmol/L Creatinine 0.59 L (0.66-1.25) mg/dL Glucose 115 H (74-99) mg/dL POC Glucose (mg/dL) 156 H (75-99) mg/dL Calcium 8.0 L (8.4-10.2) mg/dL TIBC 166 L (228-460) ug/dL Ferritin 1491.6 H (22.0-322.0) ng/mL Total Bilirubin 5.1 H (0.2-1.3) mg/dL AST 140 H (17-59) U/L ALT 114 H (4-49) U/L Alkaline Phosphatase 1041 H (38-126) U/L Total Protein 5.3 L (6.3-8.2) g/dL Albumin 2.5 L (3.5-5.0) g/dL 11/11/19 Range/Units 11:01 RBC (4.30-5.90) m/uL Hgb (13.0-17.5) gm/dL Hct (39.0-53.0) % MCV (80.0-100.0) fL Neutrophils # (1.3-7.7) k/uL Lymphocytes # (1.0-4.8) k/uL Sodium (137-145) mmol/L Creatinine (0.66-1.25) mg/dL Glucose (74-99) mg/dL POC Glucose (mg/dL) 175 H (75-99) mg/dL Calcium (8.4-10.2) mg/dL TIBC (228-460) ug/dL Ferritin (22.0-322.0) ng/mL Total Bilirubin (0.2-1.3) mg/dL AST (17-59) U/L ALT (4-49) U/L Alkaline Phosphatase (38-126) U/L Total Protein (6.3-8.2) g/dL Albumin (3.5-5.0) g/dL Microbiology - Last 24 Hours (Table) 11/08/19 17:20 Gram Stain - Final Other - Other Wound Culture - Final 11/08/19 14:55 Blood Culture - Preliminary Blood No Growth after 48 hours Assessment and Plan Assessment: Obstructive jaundice with intra-and extrahepatic biliary dilatation, possibly secondary to pancreatic malignancy, head of the pancreas Status post ERCP showing tight distal common bile duct stricture measuring 2 cm in length with proximal biliary dilation status post CBD stent placement with multiple raised lesions measuring 1-1.5 cm in size with central ulceration noted in the fundus of the stomach status post biopsies Covid 19 ruled out Chronic obstructive pulmonary disease, acute exacerbation, with acute purulent tracheobronchitis with possible sepsis, present on admission Hyponatremia Severe emaciation Possible metastatic malignancy with multiple lesions in the bones and also lymphadenopathy in the chest Anemia of chronic disease History of ethanol Hypertension History of anxiety History of ongoing continued nicotine dependence Severe protein calorie malnutrition with a body mass index of 16.5 History of recent weight loss Gait dysfunction Full code Recommendations and discussion: Recommend continue current medications, management, and symptomatic treatment. Multiple medical consultations following. Case management and social work following to assess and aid in possible discharge planning needs. Sister was here today to discuss further treatment plans and possible discharge planning to [facility]. Currently awaiting biopsy results from the ERCP to determine further treatment plan with oncology. yarn worker also consulted to initiate power of employment law attorney his family feels patient is unable to care for himself and they are unable to care for him as well. Due to multiple complex medical issues, prognosis is extremely guarded. Further recommendations to follow.
--- NOTE | 2019-11-11 17:24 | PN ---
PROGRESS NOTE DATE OF SERVICE: 11/11/2019 Patient is a 59-year-old pleasant white male admitted to the hospital with abdominal pain, progressive weight loss of 40 pounds in the last 6 months duration. He had elevated lactase and jaundice. He had an ERCP done yesterday that showed a distal common bile duct stricture as well as pancreatic ductal stricture for which he underwent cytology and CBD stent placement. He is feeling better today. He denies any symptoms. PHYSICAL EXAMINATION: Appears comfortable, in no apparent distress. Vital signs are stable. Blood pressure 127/85, pulse 93, temperature 98.3. HEENT: Examination unremarkable, conjunctivae are pink, sclerae icteric. Oral cavity no lesions. NECK: No JVD or lymph node enlargement. CHEST: Clear to auscultation. HEART: Regular rate and rhythm. ABDOMEN: Soft. Bowel sounds are positive. No organomegaly. EXTREMITIES: No pedal edema. NEUROLOGIC: Alert and oriented x3, no focal deficits. LABS: From today: WBC 8.6, hemoglobin 11.4, platelets normal, bilirubin was 5.1, AST and ALT 140 and 114 respectively and alkaline phosphatase is 1041. IMPRESSION: 1. Obstructive jaundice secondary to pancreatic mass, status post ERCP yesterday with cytology and stent placement. Results are still pending. 2. Multiple gastric ulcerations, status post biopsy. 3. Progressive weight loss. 4. Protein-calorie malnutrition. RECOMMENDATIONS: 1. Continue with current management. 2. Repeat labs in the morning. 3. Await biopsy results and we will follow with you closely. Thank you for this consultation. MMODL / IJN: [id number] /
--- NOTE | 2019-11-11 17:36 | P.PN ---
Subjective Progress Note Date: 11/11/19 Principal diagnosis: Metastatic Cancer Patient is still labile on his decision. Objective - Vital Signs Vital signs: Vital Signs Temp 98.3 F 11/11/19 10:59 Pulse 93 11/11/19 10:59 Resp 16 11/11/19 10:59 BP 147/85 11/11/19 10:59 Pulse Ox 96 11/11/19 16:53 Intake & Output 11/10/19 11/11/19 11/11/19 18:59 06:59 18:59 Intake Total 900 590 Output Total 800 200 Balance 900 -210 -200 Intake: IV 600 Intake, IV Titration 300 Amount Azithromycin 500 mg In 250 Sodium Chloride 0.9% 250 ml @ 250 mls/hr IVPB DAILY [place] Rx#:[id number] cefTRIAXone 1 gm In 50 Sodium Chloride 0.9% 50 ml @ 100 mls/hr IVPB Q24HR [place] Rx#:[id number] Oral 590 Output: Urine 800 200 Other: Voiding Method Urinal Urinal Urinal - Exam Gen: Alert and Flat affect Head: NCAT Neck Supple Lungs: Diminished, Mild increase effort Abdomen: Distended, Tender Ext: Edema bilateral Mood: ANxious - Labs CBC & Chem 7: 11/11/19 06:00 11/11/19 06:00 Labs: Abnormal Lab Results - Last 24 Hours (Table) 11/10/19 11/10/19 11/11/19 Range/Units 17:33 20:13 06:00 RBC (4.30-5.90) m/uL Hgb (13.0-17.5) gm/dL Hct (39.0-53.0) % MCV (80.0-100.0) fL Neutrophils # (1.3-7.7) k/uL Lymphocytes # (1.0-4.8) k/uL Sodium 133 L (137-145) mmol/L Creatinine 0.59 L (0.66-1.25) mg/dL Glucose 115 H (74-99) mg/dL POC Glucose (mg/dL) 117 H 208 H (75-99) mg/dL Calcium 8.0 L (8.4-10.2) mg/dL TIBC 166 L (228-460) ug/dL Ferritin 1491.6 H (22.0-322.0) ng/mL Total Bilirubin 5.1 H (0.2-1.3) mg/dL AST 140 H (17-59) U/L ALT 114 H (4-49) U/L Alkaline Phosphatase 1041 H (38-126) U/L Total Protein 5.3 L (6.3-8.2) g/dL Albumin 2.5 L (3.5-5.0) g/dL 11/11/19 11/11/19 11/11/19 Range/Units 06:00 07:01 11:01 RBC 3.53 L (4.30-5.90) m/uL Hgb 11.4 L (13.0-17.5) gm/dL Hct 35.3 L (39.0-53.0) % MCV 100.1 H (80.0-100.0) fL Neutrophils # 7.8 H (1.3-7.7) k/uL Lymphocytes # 0.4 L (1.0-4.8) k/uL Sodium (137-145) mmol/L Creatinine (0.66-1.25) mg/dL Glucose (74-99) mg/dL POC Glucose (mg/dL) 156 H 175 H (75-99) mg/dL Calcium (8.4-10.2) mg/dL TIBC (228-460) ug/dL Ferritin (22.0-322.0) ng/mL Total Bilirubin (0.2-1.3) mg/dL AST (17-59) U/L ALT (4-49) U/L Alkaline Phosphatase (38-126) U/L Total Protein (6.3-8.2) g/dL Albumin (3.5-5.0) g/dL Microbiology - Last 24 Hours (Table) 11/08/19 14:55 Blood Culture - Preliminary Blood No Growth after 72 hours 11/08/19 17:20 Gram Stain - Final Other - Other Wound Culture - Final Assessment and Plan Plan: Assessment and Recommendations: 1. Pancreatic Head Mass: - Status Post ERCP and Tissue Biopsy today distal common bile duct stricture measuring 2 cm in length with proximal biliary dilation status post CBD stent placement with multiple raised lesions measuring 1-1.5 cm in size with central ulceration noted in the fundus of the stomach status post biopsies - Await results of pathology, although patient is currently refusing further diagnostics or treatment. His sister will be present tomorrow to discuss plan for either further treatment or discharge options - Concern for metastatic cancer picture, consistent with a pancreatic primary, await path. 2. Obstructive Jaundice with Intra and extra hepatic biliary dilation: - Likely secondary malignant presentation 3. Coccal Wound PLan: - Await path and patients decision regarding further work-up and treatment options. - Discussed with sister and will discuss when results. Physician Attest:I have completed the ful history and physical and agree with above dictation, dictated as a scrine
--- NOTE | 2019-11-11 22:54 | PN ---
PROGRESS NOTE DATE OF SERVICE: 11/11/2019 REASON FOR FOLLOWUP: 1. Sacral pressure ulcer. 2. Question of pneumonia. INTERVAL HISTORY: The patient is currently afebrile. The patient is breathing comfortably. Denies having any chest pain or cough. No nausea, vomiting. No abdominal pain or diarrhea. PHYSICAL EXAMINATION: Blood pressure 155/80 with a pulse of 96, temperature 97.6. He is 92% on room air. General description is a middle-aged male lying in bed in no distress. RESPIRATORY SYSTEM: Unlabored breathing. Clear to auscultation anteriorly. HEART: S1, S2. Regular rate and rhythm. ABDOMEN: Soft. No tenderness. LABS: Hemoglobin 11.4, white count 8.6, BUN of 15, creatinine 0.59. Wound culture has been negative. DIAGNOSTIC IMPRESSION AND PLAN: 1. Patient with a stage III sacral pressure ulcer with no evidence of any secondary cellulitis. Culture has been negative. Local wound care with Medihoney followed by moist dressing. Keep the area dry and off pressure. 2. Patient with abnormal x-ray and a question of pneumonia, covered with Rocephin and Zithromax. Monitor his clinical course closely. MMODL / IJN: [id number] /
[2019-11-12] MEDS: methylPREDNISolone SOD SUCCI 125 MG/2 ML VIAL IV SCH ×4 (06:18→23:11)
[2019-11-12 07:47] LABS: Glucose,Whole Blood 127 mg/dL (75-99)
[2019-11-12 07:52] LABS: Glucose,Whole Blood 120 mg/dL (75-99)
[2019-11-12 08:02] LABS: Glucose,Whole Blood 128 mg/dL (75-99)
[2019-11-12] MEDS: ALBUTEROL HFA INHALER INHALATION SCH ×4 (08:25→19:43)
[2019-11-12] MEDS: SYMBICORT 160-4.5 MCG INHALER INHALATION SCH ×2 (08:25→19:43)
[2019-11-12] MEDS: INSULIN ASPART (NovoLOG) 100 UNIT/ML VIAL SQ SCH ×4 (09:09→21:36)
[2019-11-12] MEDS: THIAMINE 100 MG TAB PO SCH (09:14)
[2019-11-12] MEDS: PANTOPRAZOLE 40 MG TABLET PO SCH (09:14)
[2019-11-12] MEDS: MULTIVITAMINS, THERA 1 EACH TAB PO SCH (09:14)
[2019-11-12] MEDS: FOLIC ACID 1 MG TAB PO SCH (09:14)
[2019-11-12] MEDS: HYDROcodone/APAP 5-325MG 1 EACH TAB PO PRN ×2 (09:15→18:05)
[2019-11-12] MEDS: AZITHROMYCIN 500 MG in SODIUM CHLORIDE 0.9% 250 ML IVPB SCH (10:39)
[2019-11-12 11:20] LABS: Glucose,Whole Blood 145 mg/dL (75-99)
[2019-11-12 11:34] LABS: Basophils % (A) 0 %; Eosinophils % (A) 0 %; HCT 37.4 % (39.0-53.0); HGB 11.9 gm/dL (13.0-17.5); Lymphocytes # (A) 0.3 k/uL (1.0-4.8); Lymphocytes % (A) 3 %; MCH 31.7 pg (25.0-35.0); MCHC 31.8 g/dL (31.0-37.0); MCV 99.7 fL (80.0-100.0); Mean Platelet Volume 7.7; Monocytes # (A) 0.3 k/uL (0-1.0); Monocytes % (A) 4 %; Neutrophils # (A) 8.1 k/uL (1.3-7.7); Neutrophils % (A) 92 %; Platelet Count 320 k/uL (150-450); RBC 3.75 m/uL (4.30-5.90); RDW 13.1 % (11.5-15.5); WBC 8.9 k/uL (3.8-10.6)
[2019-11-12 11:43] LABS: ALT 142 U/L (4-49); AST 142 U/L (17-59); African American GFR (CKD) >90 (>60 ml/min/1.73 sqM); Albumin 2.8 g/dL (3.5-5.0); Alkaline Phosphatase 1020 U/L (38-126); Anion Gap 9 mmol/L; Blood Urea Nitrogen 12 mg/dL (9-20); Calcium 8.5 mg/dL (8.4-10.2); Carbon Dioxide 27 mmol/L (22-30); Chloride 98 mmol/L (98-107); Glucose 128 mg/dL (74-99); Non-African American GFR(CKD) >90 (>60 ml/min/1.73 sqM); Potassium 4.4 mmol/L (3.5-5.1); Sodium 134 mmol/L (137-145); Total Bilirubin 6.8 mg/dL (0.2-1.3); Total Protein 5.8 g/dL (6.3-8.2)
--- NOTE | 2019-11-12 12:23 | P.PN ---
Subjective Progress Note Date: 11/12/19 Principal diagnosis: Generalized weakness This is a 59-year-old gentleman who follows with Dr. Mendez as his primary care provider. He has a history of hypertension, anxiety, chronic tobacco dependence, heavy alcohol abuse. He stated he did quit drinking about 3 months ago. He was brought in by EMS to the emergency room yesterday with generalized weakness lower extremity edema and jaundice. He had been having diarrhea and stated his bowel movements have been green. He's been short of breath and had a loose nonproductive cough for several months now. He had been seen by our group approximately a year ago for acute hypoxic respiratory failure secondary to COPD exacerbation and tracheobronchitis. Chest x-ray at that time showed no acute pulmonary process. Yesterday's chest x-ray revealed evidence of COPD with patchy peripheral right midlung density, developing pneumonia not excluded. There is also a right hilar soft tissue prominence suspicious for underlying lymphadenopathy/mass. Ultrasound of the gallbladder revealed hydropic gallbladder with hepatic dilatation and bulky heterogenous appearance of the pancreas. Unable to exclude pancreatic head mass and secondary biliary obstruction. Calcifications and sludge within the distended gallbladder. Dopplers of the lower extremities were negative for DVT. Computed tomography scan of the chest abdomen and pelvis revealed intrahepatic and extrahepatic biliary ductal dilatation. Unable to exclude a 7.0 x 5.1 x 3.2 cm pancreatic head mass/pancreatic adenocarcinoma. There is also noted mediastinal and right hilar lymphadenopathy measuring up to 2.9 cm suspicious for metastatic disease. There is also osseous metastatic disease with permeative distraction of the left acetabulum and left ischium. Permeative lucency within the superior right acetabulum. Pathologic compression fractures of L3 and L4. Moderate spinal canal stenosis. Hydropic gallbladder with mild wall thickening. Patchy density in the right lung. The patient is seen today in consultation on the regular medical floor. He is currently awake and alert in no acute distress. He is quite cachectic appearing disheveled. Maintaining O2 saturation in the 90s on room air. He's been afebrile. Hemodynamically stable. Coccyx wound culture pending. White count 7.1. Hemoglobin 11.3. MCV 101. Sodium 135. Potassium 4.2. Creatinine 0.44. AST 75. ALT 62. Alk phos 653. CA 199 antigen 130. Coronavirus by PCR not detected. He has been initiated on ceftriaxone and azithromycin along with Symbicort, IV Solu-Medrol and albuterol. On 11/11/2019 patient seen in follow-up on general oncology floor. He is status post ERCP with brush cytology, CBD stent placement and EGD with biopsy for diagnosis of jaundice and possible pancreatic mass. There was irregular stricture involving the entire pancreatic duct and the guidewire could not be passed into the pancreatic duct and cytology could not be performed. There was central ulcerations within the fundus of the stomach that were biopsied. Currently the biopsies are pending. Patient is seen resting comfortably in bed, denies any distress, room air pulse ox of 94-96%, hemodynamically stable, his been afebrile. No complaints of shortness of breath, today's lab work has been reviewed showing white blood cell count of 8.6, hemoglobin of 11.4, serum sodium is 133, the rest of electrolytes are within normal limits, BUN 16 creatinine 0.59, LFTs have increased with AST of 140, ALT of 114, and alkaline phosphatase of 1041. Patient remains on Rocephin and azithromycin. Lung sounds are positive for some scattered rhonchi, patient is on IV steroids and inhalers. The patient is seen today 11/12/2019 in follow-up on the general oncology floor. He is currently awake and alert in no acute distress. He is resting comfortably in bed. He denies any significant abdominal discomfort, nausea or vomiting. Blood culture reveals no growth. Wound culture reveals no growth. White count 8.9. Hemoglobin 11.9. Creatinine 0.58. AST 142. ALT 142. Alk phos 1020. He is maintaining O2 saturations in the 90s on room air. He's afebrile. He remains on Symbicort, albuterol, IV Solu-Medrol. Antibiotics in the form of ceftriaxone and azithromycin. He is status post ERCP with brush cytology, CBD stent placement. EGD with biopsies pending. Objective - Vital Signs Vital signs: Vital Signs Temp 98.7 F 11/12/19 04:44 Pulse 88 11/12/19 04:44 Resp 17 11/12/19 04:44 BP 157/87 11/12/19 04:44 Pulse Ox 96 11/12/19 04:44 Intake & Output 11/11/19 11/12/19 11/12/19 18:59 06:59 18:59 Intake Total 420 750 Output Total 800 1000 Balance -380 750 -1000 Intake: Intake, IV Titration 420 160 Amount Azithromycin 500 mg In 250 Sodium Chloride 0.9% 250 ml @ 250 mls/hr IVPB DAILY [place] Rx#:[id number] Sodium Chloride 0.9% 1, 120 160 000 ml @ 20 mls/hr IV . Q24H [facility] Rx#:[id number] cefTRIAXone 1 gm In 50 Sodium Chloride 0.9% 50 ml @ 100 mls/hr IVPB Q24HR [place] Rx#:[id number] Oral 590 Output: Urine 800 1000 Other: Voiding Method Urinal Urinal Urinal - Exam GENERAL EXAM: Alert, cachectic 59-year-old male patient, slightly jaundice, on room air, comfortable in no apparent distress. HEAD: Normocephalic/atraumatic. EYES: Normal reaction of pupils, equal size. Conjunctiva pink, sclera white. NOSE: Clear with pink turbinates. THROAT: No erythema or exudates. NECK: No masses, no JVD, no thyroid enlargement, no adenopathy. CHEST: No chest wall deformity. Symmetrical expansion. LUNGS: Equal air entry with diffuse rhonchi CVS: Regular rate and rhythm, normal S1 and S2, no gallops, no murmurs, no rubs ABDOMEN: Soft, nontender. No hepatosplenomegaly, normal bowel sounds, no guarding or rigidity. EXTREMITIES: No clubbing, no edema, no cyanosis, 2+ pulses and upper and lower extremities. MUSCULOSKELETAL: Muscle strength and tone normal. SPINE: No scoliosis or deformity SKIN: No rashes CENTRAL NERVOUS SYSTEM: No focal deficits, tone is normal in all 4 extremities. PSYCHIATRIC: Alert and oriented -3. Appropriate affect. Intact judgment and insight. - Labs CBC & Chem 7: 11/12/19 11:12 11/12/19 11:12 Labs: Abnormal Lab Results - Last 24 Hours (Table) 11/11/19 11/11/19 11/12/19 Range/Units 17:08 20:13 07:31 RBC (4.30-5.90) m/uL Hgb (13.0-17.5) gm/dL Hct (39.0-53.0) % Neutrophils # (1.3-7.7) k/uL Lymphocytes # (1.0-4.8) k/uL Sodium (137-145) mmol/L Creatinine (0.66-1.25) mg/dL Glucose (74-99) mg/dL POC Glucose (mg/dL) 120 H 128 H 127 H (75-99) mg/dL Total Bilirubin (0.2-1.3) mg/dL AST (17-59) U/L ALT (4-49) U/L Alkaline Phosphatase (38-126) U/L Total Protein (6.3-8.2) g/dL Albumin (3.5-5.0) g/dL 11/12/19 11/12/19 11/12/19 Range/Units 11:12 11:12 11:19 RBC 3.75 L (4.30-5.90) m/uL Hgb 11.9 L (13.0-17.5) gm/dL Hct 37.4 L (39.0-53.0) % Neutrophils # 8.1 H (1.3-7.7) k/uL Lymphocytes # 0.3 L (1.0-4.8) k/uL Sodium 134 L (137-145) mmol/L Creatinine 0.58 L (0.66-1.25) mg/dL Glucose 128 H (74-99) mg/dL POC Glucose (mg/dL) 145 H (75-99) mg/dL Total Bilirubin 6.8 H (0.2-1.3) mg/dL AST 142 H (17-59) U/L ALT 142 H (4-49) U/L Alkaline Phosphatase 1020 H (38-126) U/L Total Protein 5.8 L (6.3-8.2) g/dL Albumin 2.8 L (3.5-5.0) g/dL Microbiology - Last 24 Hours (Table) 11/08/19 14:55 Blood Culture - Preliminary Blood No Growth after 72 hours Assessment and Plan Assessment: 1 Generalized weakness secondary to suspected pancreatic adenocarcinoma with metastasis to the lung, bone. CA 199 antigen 130. Status post ERCP with stent placements and biopsies taken. Pathology pending. 2 Mediastinal and right hilar lymphadenopathy measuring up to 2.9 cm suspicious for metastatic disease. There is also a patchy density in the right lung cannot rule out developing pneumonia 3 Permeative distraction of the left acetabulum and left moe along with the superior right acetabulum suspicious for osseous metastatic disease. Pathologic compression fractures of L3 and L4 with moderate spinal canal stenosis 4 Hydropic gallbladder with mild wall thickening suspect secondary to biliary obstruction versus acute cholecystitis 5 Chronic and ongoing tobacco dependence 6 Chronic heavy alcohol use, states quit 3 months ago 7 Decubitus ulcer in the coccyx 8 Protein calorie malnutrition, BMI 16.5 9 Elevated LFTs. 10 Poor overall functional performance based on the above-mentioned multiple comorbidities Plan: The patient was seen and evaluated by Dr. King Most likely metastatic pancreatic cancer ERCP and biopsies performed. Pathology pending. He is cleared for discharge from the pulmonary standpoint. He is educated regarding the importance of complete smoking cessation, alcohol cessation Overall prognosis remains quite guarded I, the cosigning physician, performed a history & physical examination of the patient. Lungs sounds with few scattered rhonchi, end expiratory wheeze, diminished. Maintaining good O2 saturations in the 90s on room air. I discussed the assessment and plan of care with my nurse practitioner, Valerie Tucker. I attest to the above note as dictated by her.
[2019-11-12] MEDS: LACTATED RINGERS 1,000 ML IV SCH (13:48)
--- NOTE | 2019-11-12 15:20 | P.PN ---
Subjective Progress Note Date: 11/12/19 Principal diagnosis: This is a 59-year-old male who was recently admitted with significant weakness and diminished oral intake and is being closely monitored. Patient is being seen and evaluated by GI and underwent ERCP today showing a tight distal common bile duct stricture measuring 2 cm in length with proximal biliary dilation status post CBD brush cytology along with a CBD stent placement, irregular stricture involving the entire pancreatic duct, and multiple raised lesions measuring 1-1.5 cm in size with central ulceration noted in the fundus of the stomach and biopsies were obtained. Currently awaiting biopsies as they are pending. Patient was initiated on clear liquid diet and tolerating although patient states he would like and advance in his diet. Patient underwent nuclear bone scan showing a focus of radiotracer accumulation in the posterior medial right 11th or 12th rib that is nonspecific and may likely be due to trauma with solitary metastasis less likely, photopenic defects within the proximal right femur, degenerative type joint changes especially noted in bilateral knees and ankles, consider possible hydronephrosis and hydroureter of the left renal collecting system with additional workup considered. Multiple medical consultations following. Patient is having a lot of sacral discomfort and is currently off loading of the area. Infectious disease is following. Patient also underwent a CT of the brain showing no acute intracranial hemorrhage or midline shift with mild to moderate diffuse cerebral atrophy and mild chronic small vessel ischemic changes noted with suspected metastatic osseous lesion to the left mastoid region inferior aspect. Multiple medical consultations following an currently awaiting an oncology consult. Prognosis is extremely guarded. 11/11/2019 Patient is seen and evaluated in follow-up today and continues to have weakness with diminished oral intake and is being closely monitored. Multiple medical consultations following. Patient continues to have some mild abdominal discomfort although states somewhat improved. Patient is urinating and having bowel movements. Patient states his bowel movements have been loose and somewhat semi-formed at times. No bleeding noted. Patient remains on clear li quids at this time and asking for an advancement in diet. No reports of nausea or vomiting noted. Patient was seen and evaluated by oncology and currently waiting biopsy results from the ERCP performed yesterday. Patient initially opened discussion of further treatment and then reports wanting no further treatment done. Social work consulted for possible power of technical engineer. Current patient's status was discussed in detail with sister and she was here today discussing with her brother about possible discharge plans as he is unable to take care of himself at home and they are unable to care for him given his multiple complex medical issues. Case management and social work are following for possible rehab placement upon discharge. Patient remains on IV antibiotics in the form of Zithromax and ceftriaxone and infectious disease is following. Will continue to monitor closely. 11/12/2019 Patient is seen in follow-up today currently awaiting pathology report from recent ERCP. Multiple medical consults following. Oncology following as well and awaiting pathology report to determine next steps in treatment plan. Patient continues to refuse treatments at this time and would like to go home. Discussed with the patient at length about rehab for PT/OT therapy for an increase in strength and mobility to be able to return home. Patient continues to be weak. Family states he is unable to care for himself and lives alone with family close by although they are unable to care for him. Review of systems: Constitutional: No reports of fevers or fatigue Cardiovascular: No reports of chest pain or palpitations Respiratory: No reports of shortness of breath or cough GI: No reports of nausea, vomiting, or diarrhea : No reports of dysuria or retention Neurovascular: Reports mild weakness, no reports of numbness Active Medications Hydrocodone Bitart/Acetaminophen ([place] 5-325) 1 each PO Q6HR PRN PRN Reason: Pain Last Admin: 11/12/19 09:15 Dose: 1 each Documented by: Albuterol Sulfate (Ventolin Hfa Inhaler) 2 puff INHALATION RT-QID [facility] Last Admin: 11/12/19 12:01 Dose: 2 puff Documented by: Azithromycin (Zithromax) 500 mg PO DAILY [facility] Budesonide/Formoterol Fumarate (Symbicort 160-4.5 Mcg Inhaler) 2 puff INHALATION RT-BID [facility] Last Admin: 11/12/19 08:25 Dose: 2 puff Documented by: Folic Acid (Folic Acid) 1 mg PO DAILY@1200 [facility] Last Admin: 11/12/19 09:14 Dose: 1 mg Documented by: Hydromorphone HCl (Dilaudid) 0.5 mg IVP Q6HR PRN PRN Reason: Severe Pain Last Admin: 11/10/19 02:21 Dose: 0.5 mg Documented by: Sodium Chloride (Saline 0.9%) 1,000 mls @ 20 mls/hr IV .Q24H [facility] Last Admin: 11/11/19 06:27 Dose: 20 mls/hr Documented by: Ceftriaxone Sodium 1 gm/ (Sodium Chloride) 50 mls @ 100 mls/hr IVPB Q24HR [facility] Last Admin: 11/12/19 09:19 Dose: 100 mls/hr Documented by: Lactated Ringer's (Lactated Ringers) 1,000 mls @ 20 mls/hr IV .Q24H [facility] Last Admin: 11/12/19 13:48 Dose: Not Given Documented by: Insulin Aspart (Novolog) 0 unit SQ [facility]; Protocol Last Admin: 11/12/19 13:36 Dose: 1 unit Documented by: Lorazepam (Ativan) 1 mg IV Q4HR PRN PRN Reason: Anxiety Methylprednisolone Sodium Succinate (Solu-Medrol) 60 mg IV Q6HR [facility] Last Admin: 11/12/19 13:36 Dose: 60 mg Documented by: Multivitamins (Theragran) 1 each PO DAILY@1200 [facility] Last Admin: 11/12/19 09:14 Dose: 1 each Documented by: Naloxone HCl (Narcan) 0.2 mg IV Q2M PRN PRN Reason: Opioid Reversal Pantoprazole Sodium (Protonix) 40 mg PO AC-BRKFST [facility] Last Admin: 11/12/19 09:14 Dose: 40 mg Documented by: Thiamine HCl (Vitamin B-1) 100 mg PO DAILY@1200 [facility] Last Admin: 11/12/19 09:14 Dose: 100 mg Documented by: Objective - Vital Signs Vital signs: Vital Signs Temp 98.7 F 11/12/19 04:44 Pulse 88 11/12/19 04:44 Resp 17 11/12/19 04:44 BP 157/87 11/12/19 04:44 Pulse Ox 96 11/12/19 04:44 Intake & Output 11/11/19 11/12/19 11/12/19 18:59 06:59 18:59 Intake Total 420 750 Output Total 800 1000 Balance -380 750 -1000 Intake: Intake, IV Titration 420 160 Amount Azithromycin 500 mg In 250 Sodium Chloride 0.9% 250 ml @ 250 mls/hr IVPB DAILY [facility] Rx#:[id number] Sodium Chloride 0.9% 1, 120 160 000 ml @ 20 mls/hr IV . Q24H [facility] Rx#:[id number] cefTRIAXone 1 gm In 50 Sodium Chloride 0.9% 50 ml @ 100 mls/hr IVPB Q24HR [facility] Rx#:[id number] Oral 590 Output: Urine 800 1000 Other: Voiding Method Urinal Urinal Urinal - Exam GENERAL: Patient is awake and alert and oriented 3. Temp is 98.7F, pulse is 88, respirations are 17, blood pressure is 157/87, oxygen saturation is 96% on room air. HEENT: Pupils are round and equally reacting to light. EOMI. No scleral icterus. No conjunctival pallor. Normocephalic, atraumatic. No pharyngeal erythema. No thyromegaly. CARDIOVASCULAR: S1 and S2 are muffled. No murmurs, rubs, or gallops. PULMONARY: Diminished breath sounds at the bases with a few scattered rhonchi noted. ABDOMEN: Soft, scaphoid, nondistended, normoactive bowel sounds. No palpable organomegaly. MUSCULOSKELETAL: No joint swelling or deformity. EXTREMITIES: No cyanosis, clubbing, or mild bilateral lower extremity edema noted NEUROLOGICAL: Moving all 4 limbs, diffusely weak, wasted and emaciated SKIN: No rashes. Sacral wound noted with medical honey applied - Labs CBC & Chem 7: 11/12/19 11:12 11/12/19 11:12 Labs: Abnormal Lab Results - Last 24 Hours (Table) 11/11/19 11/11/19 11/12/19 Range/Units 17:08 20:13 07:31 RBC (4.30-5.90) m/uL Hgb (13.0-17.5) gm/dL Hct (39.0-53.0) % Neutrophils # (1.3-7.7) k/uL Lymphocytes # (1.0-4.8) k/uL Sodium (137-145) mmol/L Creatinine (0.66-1.25) mg/dL Glucose (74-99) mg/dL POC Glucose (mg/dL) 120 H 128 H 127 H (75-99) mg/dL Total Bilirubin (0.2-1.3) mg/dL AST (17-59) U/L ALT (4-49) U/L Alkaline Phosphatase (38-126) U/L Total Protein (6.3-8.2) g/dL Albumin (3.5-5.0) g/dL 05/01/20 05/01/20 05/01/20 Range/Units 11:12 11:12 11:19 RBC 3.75 L (4.30-5.90) m/uL Hgb 11.9 L (13.0-17.5) gm/dL Hct 37.4 L (39.0-53.0) % Neutrophils # 8.1 H (1.3-7.7) k/uL Lymphocytes # 0.3 L (1.0-4.8) k/uL Sodium 134 L (137-145) mmol/L Creatinine 0.58 L (0.66-1.25) mg/dL Glucose 128 H (74-99) mg/dL POC Glucose (mg/dL) 145 H (75-99) mg/dL Total Bilirubin 6.8 H (0.2-1.3) mg/dL AST 142 H (17-59) U/L ALT 142 H (4-49) U/L Alkaline Phosphatase 1020 H (38-126) U/L Total Protein 5.8 L (6.3-8.2) g/dL Albumin 2.8 L (3.5-5.0) g/dL Microbiology - Last 24 Hours (Table) 11/08/19 14:55 Blood Culture - Preliminary Blood No Growth after 72 hours Assessment and Plan Assessment: Obstructive jaundice with intra-and extrahepatic biliary dilatation, possibly secondary to pancreatic malignancy, head of the pancreas Status post ERCP showing tight distal common bile duct stricture measuring 2 cm in length with proximal biliary dilation status post CBD stent placement with multiple raised lesions measuring 1-1.5 cm in size with central ulceration noted in the fundus of the stomach status post biopsies Covid 19 ruled out Chronic obstructive pulmonary disease, acute exacerbation, with acute purulent tracheobronchitis with possible sepsis, present on admission Hyponatremia Severe emaciation Possible metastatic malignancy with multiple lesions in the bones and also lymphadenopathy in the chest Anemia of chronic disease History of ethanol Hypertension History of anxiety History of ongoing continued nicotine dependence Severe protein calorie malnutrition with a body mass index of 16.5 History of recent weight loss Gait dysfunction Full code Recommendations and discussion: Recommend continue current medications, management, and symptomatic treatment. Multiple medical consultations following. Case management and social work foll owing to assess and aid in possible discharge planning needs. Family recommending rehab for continued PT/OT therapy. Discussed with the patient at length about the possibility of ECF placement once stabilized and discharged for continued PT/OT therapy for strength and mobility. Patient continues to refuse treatments with oncology and biopsies are pending. Patient and family made aware that oncology will not be able to initiate treatment while in rehab. Oncology awaiting pathology report from ERCP biopsies to discuss possible further treatments with the patient and family members again. cooler worker also consulted to initiate power of technical engineer his family feels patient is unable to care for himself and they are unable to care for him as well. Due to multiple complex medical issues, prognosis is extremely guarded. Further recommendations to follow.
--- NOTE | 2019-11-12 16:09 | PN ---
PROGRESS NOTE DATE OF DICTATION: 11/12/2019 The patient is a 59-year-old pleasant white male admitted to the hospital with progressive weight loss and painless jaundice and noted to have a 7 cm pancreatic mass. ERCP done 2 days ago did show distal common bile duct stricture and pancreatic stricture. [place] cytology is still pending. He has a CBD stent in place. He denies any symptoms today. Pathology is still pending. He reports no symptoms today. PHYSICAL EXAMINATION: He appears comfortable. No apparent distress. VITAL SIGNS: Stable. Blood pressure 130/86, pulse rate 82 per minute and afebrile. HEENT examination unremarkable. Conjunctivae pink. Sclerae slightly icteric. Oral cavity no lesions. NECK: No JVD or lymph node enlargement. CHEST: Clear to auscultation. HEART: Regular rate and rhythm. ABDOMEN: Soft. Bowel sounds are positive. No organomegaly. EXTREMITIES: No pedal edema. SKIN: No rashes. NEUROLOGIC: Alert and oriented x3. No focal deficits. LABS: WBC 8.9, hemoglobin 11.9, platelets normal. Bilirubin is 6.8. AST and ALT 142 and 142. Alkaline phosphatase 1020. IMPRESSION: 1. Pancreatic mass with biliary obstruction, status post ERCP with brush cytology and common bile duct stent placement. Bilirubin continues to remain elevated. Cytology is still pending. 2. Multiple small gastric ulcerations on EGD noted. Biopsies still pending. 3. Progressive weight loss. RECOMMENDATIONS: 1. At this time we will await biopsy results and brush cytology results. 2. Repeat labs in the morning. 3. Continue with the regular diet. We will follow with you closely. Thank you for this consultation. MMODL / IJN: [id number] /
--- NOTE | 2019-11-12 16:12 | P.PN ---
Subjective Progress Note Date: 11/12/19 Principal diagnosis: Metastatic Cancer Patient was open to treatment today and would like to pursue with systemic options and radiation if this is an option. Objective - Vital Signs Vital signs: Vital Signs Temp 98.9 F 11/12/19 12:08 Pulse 86 11/12/19 12:08 Resp 16 11/12/19 12:08 BP 159/77 11/12/19 12:08 Pulse Ox 96 11/12/19 12:08 Intake & Output 11/11/19 11/12/19 11/12/19 18:59 06:59 18:59 Intake Total 420 750 Output Total 800 1000 Balance -380 750 -1000 Weight 52.163 kg Intake: Intake, IV Titration 420 160 Amount Azithromycin 500 mg In 250 Sodium Chloride 0.9% 250 ml @ 250 mls/hr IVPB DAILY [facility] Rx#:[id number] Sodium Chloride 0.9% 1, 120 160 000 ml @ 20 mls/hr IV . Q24H [facility] Rx#:[id number] cefTRIAXone 1 gm In 50 Sodium Chloride 0.9% 50 ml @ 100 mls/hr IVPB Q24HR [facility] Rx#:[id number] Oral 590 Output: Urine 800 1000 Other: Voiding Method Urinal Urinal Urinal - Exam Gen: Alert and Flat affect Head: NCAT Neck Supple Lungs: Diminished, Mild increase effort Abdomen: Distended, Tender Ext: Edema bilateral Mood: ANxious - Labs CBC & Chem 7: 11/12/19 11:12 11/12/19 11:12 Labs: Abnormal Lab Results - Last 24 Hours (Table) 11/11/19 11/11/19 11/12/19 Range/Units 17:08 20:13 07:31 RBC (4.30-5.90) m/uL Hgb (13.0-17.5) gm/dL Hct (39.0-53.0) % Neutrophils # (1.3-7.7) k/uL Lymphocytes # (1.0-4.8) k/uL Sodium (137-145) mmol/L Creatinine (0.66-1.25) mg/dL Glucose (74-99) mg/dL POC Glucose (mg/dL) 120 H 128 H 127 H (75-99) mg/dL Total Bilirubin (0.2-1.3) mg/dL AST (17-59) U/L ALT (4-49) U/L Alkaline Phosphatase (38-126) U/L Total Protein (6.3-8.2) g/dL Albumin (3.5-5.0) g/dL 11/12/19 11/12/19 11/12/19 Range/Units 11:12 11:12 11:19 RBC 3.75 L (4.30-5.90) m/uL Hgb 11.9 L (13.0-17.5) gm/dL Hct 37.4 L (39.0-53.0) % Neutrophils # 8.1 H (1.3-7.7) k/uL Lymphocytes # 0.3 L (1.0-4.8) k/uL Sodium 134 L (137-145) mmol/L Creatinine 0.58 L (0.66-1.25) mg/dL Glucose 128 H (74-99) mg/dL POC Glucose (mg/dL) 145 H (75-99) mg/dL Total Bilirubin 6.8 H (0.2-1.3) mg/dL AST 142 H (17-59) U/L ALT 142 H (4-49) U/L Alkaline Phosphatase 1020 H (38-126) U/L Total Protein 5.8 L (6.3-8.2) g/dL Albumin 2.8 L (3.5-5.0) g/dL Microbiology - Last 24 Hours (Table) 11/08/19 14:55 Blood Culture - Preliminary Blood No Growth after 72 hours Assessment and Plan Plan: Assessment and Recommendations: 1. Pancreatic Head Mass: - Status Post ERCP and Tissue Biopsy today distal common bile duct stricture measuring 2 cm in length with proximal biliary dilation status post CBD stent placement with multiple raised lesions measuring 1-1.5 cm in size with central ulceration noted in the fundus of the stomach status post biopsies - Await results of pathology, although patient is currently refusing further diagnostics or treatment. His sister will be present tomorrow to discuss plan for either further treatment or discharge options - Concern for metastatic cancer picture, consistent with a pancreatic primary, await path. 2. Obstructive Jaundice with Intra and extra hepatic biliary dilation: - Likely secondary malignant presentation 3. Coccal Wound PLan: - Discussed with radiation oncology, await path but ok to radiate hip at this time Physician Attest:I have completed the ful history and physical and agree with above dictation, dictated as a scrine
[2019-11-12 16:44] LABS: Glucose,Whole Blood 131 mg/dL (75-99)
[2019-11-12] MEDS: SODIUM CHLORIDE 0.9% 1,000 ML IV SCH (18:05)
[2019-11-12 21:45] LABS: Glucose,Whole Blood 129 mg/dL (75-99)
--- NOTE | 2019-11-12 22:38 | PN ---
PROGRESS NOTE DATE OF SERVICE: 11/12/2019 REASON FOR FOLLOWUP: Sacral pressure ulcer and a question of pneumonia. INTERVAL HISTORY: The patient is currently afebrile. The patient is breathing comfortably. Denies having any chest pain or any cough. No nausea, vomiting. No abdominal pain and no pain to the sacral wound area. PHYSICAL EXAMINATION: Blood pressure 155/88 with a pulse of 91, temperature 97.9. He is 93% on room air. General description is a middle-aged male lying in bed in no distress. RESPIRATORY SYSTEM: Unlabored breathing with decreased breath sounds at the base. No wheeze. HEART: S1, S2. Regular rate and rhythm. ABDOMEN: Soft. No tenderness. Sacral ulcer has significant slough tissue significant redness. LABS: Hemoglobin 11.9, white count 8.9, BUN of 12, creatinine 0.58. Wound culture has been negative. Blood culture negative. DIAGNOSTIC IMPRESSION AND PLAN: 1. Patient with a stage III sacral pressure ulcer. No cellulitis. Local wound care to continue with Medihoney followed by a moist dressing. Keep the area dry and off pressure. 2. Patient with a question of pneumonia, though clinically not behaving as such. Covered with Rocephin and Zithromax. Monitor his clinical course closely. MMODL / IJN: [id number] /
[2019-11-13] MEDS: methylPREDNISolone SOD SUCCI 125 MG/2 ML VIAL IV SCH ×2 (05:58→12:58)
[2019-11-13 06:42] LABS: HCT 38.8 % (39.0-53.0); HGB 11.9 gm/dL (13.0-17.5); MCH 30.7 pg (25.0-35.0); MCHC 30.6 g/dL (31.0-37.0); MCV 100.5 fL (80.0-100.0); Mean Platelet Volume 8.1; Platelet Count 315 k/uL (150-450); RBC 3.86 m/uL (4.30-5.90); RDW 13.2 % (11.5-15.5); WBC 8.9 k/uL (3.8-10.6)
[2019-11-13 06:59] LABS: ALT 163 U/L (4-49); AST 150 U/L (17-59); African American GFR (CKD) >90 (>60 ml/min/1.73 sqM); Albumin 2.9 g/dL (3.5-5.0); Alkaline Phosphatase 1119 U/L (38-126); Anion Gap 8 mmol/L; Blood Urea Nitrogen 13 mg/dL (9-20); Calcium 8.6 mg/dL (8.4-10.2); Carbon Dioxide 28 mmol/L (22-30); Chloride 97 mmol/L (98-107); Glucose 107 mg/dL (74-99); Non-African American GFR(CKD) >90 (>60 ml/min/1.73 sqM); Potassium 4.4 mmol/L (3.5-5.1); Sodium 133 mmol/L (137-145); Total Bilirubin 7.8 mg/dL (0.2-1.3); Total Protein 5.9 g/dL (6.3-8.2)
[2019-11-13 07:07] LABS: Glucose,Whole Blood 123 mg/dL (75-99)
[2019-11-13] MEDS: INSULIN ASPART (NovoLOG) 100 UNIT/ML VIAL SQ SCH ×4 (07:58→21:34)
[2019-11-13] MEDS: AZITHROMYCIN 500 MG TAB PO SCH (07:59)
[2019-11-13] MEDS: PANTOPRAZOLE 40 MG TABLET PO SCH (07:59)
[2019-11-13] MEDS: SYMBICORT 160-4.5 MCG INHALER INHALATION SCH ×2 (08:39→20:31)
[2019-11-13] MEDS: ALBUTEROL HFA INHALER INHALATION SCH ×4 (08:39→20:31)
[2019-11-13] MEDS: SODIUM CHLORIDE 0.9% 1,000 ML IV SCH (09:18)
[2019-11-13] MEDS: LACTATED RINGERS 1,000 ML IV SCH (09:20)
[2019-11-13] MEDS: HYDROcodone/APAP 5-325MG 1 EACH TAB PO PRN ×3 (09:25→22:51)
--- NOTE | 2019-11-13 10:37 | PN ---
PROGRESS NOTE DATE OF SERVICE: November 13, 2019 Patient is a 59-year-old pleasant white male admitted to hospital with jaundice, pancreatic mass on CT scan with possible metastasis. He had an ERCP done 2 days ago that showed distal common bile duct stricture and pancreatic duct stricture. Path cytology is still pending. Biopsies from the gastric ulcers are still pending. The patient continues to do well. Denies any symptoms. PHYSICAL EXAMINATION: Appears comfortable. No apparent distress. VITAL SIGNS: Stable. Blood pressure is 174/84, pulse rate 87, temperature 97. HEENT examination unremarkable. Conjunctivae pink. Sclerae deeply icteric. Oral cavity no lesions. NECK: No JVD or lymph node enlargement. CHEST: Clear to auscultation. HEART: Regular rate and rhythm. ABDOMEN: Soft. Bowel sounds are positive. No organomegaly. EXTREMITIES: No pedal edema. NEUROLOGIC: Alert and oriented x3. No focal deficits. LABS: WBC 8.9, hemoglobin 11.9, platelets normal. Basic metabolic panel is within normal limits. T-bilirubin is up to 7.8. AST and ALT are 150 and 163 respectively. Alkaline phosphatase 1119. IMPRESSION: 1. Obstructive jaundice secondary to possible metastatic pancreatic carcinoma status post ERCP with CBD stent placement which revealed a distal common bile duct stricture as well as pancreatic stricture by cytology and biopsies are still pending. 2. Progressive weight loss. RECOMMENDATIONS: Continue with symptomatic and supportive care. Repeat labs in the morning. Await biopsy results. We will follow with you. Thank you for this consultation. MMODL / IJN: [id number] /
[2019-11-13] MEDS: HYDROmorphone 0.5 MG/0.5 ML SYRINGE IVP PRN ×2 (10:56→19:29)
[2019-11-13 11:16] LABS: Glucose,Whole Blood 264 mg/dL (75-99)
--- NOTE | 2019-11-13 12:47 | P.PN ---
Subjective Progress Note Date: 11/13/19 Principal diagnosis: Generalized weakness This is a 59-year-old gentleman who follows with Dr. Mendez as his primary care provider. He has a history of hypertension, anxiety, chronic tobacco dependence, heavy alcohol abuse. He stated he did quit drinking about 3 months ago. He was brought in by EMS to the emergency room yesterday with generalized weakness lower extremity edema and jaundice. He had been having diarrhea and stated his bowel movements have been green. He's been short of breath and had a loose nonproductive cough for several months now. He had been seen by our group approximately a year ago for acute hypoxic respiratory failure secondary to COPD exacerbation and tracheobronchitis. Chest x-ray at that time showed no acute pulmonary process. Yesterday's chest x-ray revealed evidence of COPD with patchy peripheral right midlung density, developing pneumonia not excluded. There is also a right hilar soft tissue prominence suspicious for underlying lymphadenopathy/mass. Ultrasound of the gallbladder revealed hydropic gallbladder with hepatic dilatation and bulky heterogenous appearance of the pancreas. Unable to exclude pancreatic head mass and secondary biliary obstruction. Calcifications and sludge within the distended gallbladder. Dopplers of the lower extremities were negative for DVT. Computed tomography scan of the chest abdomen and pelvis revealed intrahepatic and extrahepatic biliary ductal dilatation. Unable to exclude a 7.0 x 5.1 x 3.2 cm pancreatic head mass/pancreatic adenocarcinoma. There is also noted mediastinal and right hilar lymphadenopathy measuring up to 2.9 cm suspicious for metastatic disease. There is also osseous metastatic disease with permeative distraction of the left acetabulum and left ischium. Permeative lucency within the superior right acetabulum. Pathologic compression fractures of L3 and L4. Moderate spinal canal stenosis. Hydropic gallbladder with mild wall thickening. Patchy density in the right lung. The patient is seen today in consultation on the regular medical floor. He is currently awake and alert in no acute distress. He is quite cachectic appearing disheveled. Maintaining O2 saturation in the 90s on room air. He's been afebrile. Hemodynamically stable. Coccyx wound culture pending. White count 7.1. Hemoglobin 11.3. MCV 101. Sodium 135. Potassium 4.2. Creatinine 0.44. AST 75. ALT 62. Alk phos 653. CA 199 antigen 130. Coronavirus by PCR not detected. He has been initiated on ceftriaxone and azithromycin along with Symbicort, IV Solu-Medrol and albuterol. On 11/11/2019 patient seen in follow-up on general oncology floor. He is status post ERCP with brush cytology, CBD stent placement and EGD with biopsy for diagnosis of jaundice and possible pancreatic mass. There was irregular stricture involving the entire pancreatic duct and the guidewire could not be passed into the pancreatic duct and cytology could not be performed. There was central ulcerations within the fundus of the stomach that were biopsied. Currently the biopsies are pending. Patient is seen resting comfortably in bed, denies any distress, room air pulse ox of 94-96%, hemodynamically stable, his been afebrile. No complaints of shortness of breath, today's lab work has been reviewed showing white blood cell count of 8.6, hemoglobin of 11.4, serum sodium is 133, the rest of electrolytes are within normal limits, BUN 16 creatinine 0.59, LFTs have increased with AST of 140, ALT of 114, and alkaline phosphatase of 1041. Patient remains on Rocephin and azithromycin. Lung sounds are positive for some scattered rhonchi, patient is on IV steroids and inhalers. The patient is seen today 11/12/2019 in follow-up on the general oncology floor. He is currently awake and alert in no acute distress. He is resting comfortably in bed. He denies any significant abdominal discomfort, nausea or vomiting. Blood culture reveals no growth. Wound culture reveals no growth. White count 8.9. Hemoglobin 11.9. Creatinine 0.58. AST 142. ALT 142. Alk phos 1020. He is maintaining O2 saturations in the 90s on room air. He's afebrile. He remains on Symbicort, albuterol, IV Solu-Medrol. Antibiotics in the form of ceftriaxone and azithromycin. He is status post ERCP with brush cytology, CBD stent placement. EGD with biopsies pending. The patient is seen today 11/13/2019 in follow-up on the regular medical floor. He is resting comfortably in bed. Awake and alert in no acute distress. He denies any shortness of breath, cough or congestion. No significant abdominal discomfort. He is maintaining good O2 saturation in the mid 90s on room air. He's afebrile. Slightly hypertensive. Blood culture reveals no growth. Wound culture reveals no growth. White count 8.9. Hemoglobin 11.9. MCV 100.5. Sodium 133. Potassium 4.4. Creatinine 0.56. AST 150. ALT 163. GI biopsy still pending. He remains on ceftriaxone and azithromycin. Continue on S ymbicort, albuterol, IV Solu-Medrol. Objective - Vital Signs Vital signs: Vital Signs Temp 97.6 F 11/13/19 11:43 Pulse 78 11/13/19 11:43 Resp 17 11/13/19 11:43 BP 165/93 11/13/19 11:43 Pulse Ox 94 L 11/13/19 11:43 Intake & Output 11/12/19 11/13/19 11/13/19 18:59 06:59 18:59 Intake Total 100 Output Total 1000 1200 100 Balance -1000 -1100 -100 Weight 52.163 kg Intake: Oral 100 Output: Urine 1000 1200 100 Other: Voiding Method Urinal Urinal Urinal # Voids 3 - Exam GENERAL EXAM: Alert, cachectic 59-year-old male patient, slightly jaundice, on room air, comfortable in no apparent distress. HEAD: Normocephalic/atraumatic. EYES: Normal reaction of pupils, equal size. Conjunctiva pink, sclera white. NOSE: Clear with pink turbinates. THROAT: No erythema or exudates. NECK: No masses, no JVD, no thyroid enlargement, no adenopathy. CHEST: No chest wall deformity. Symmetrical expansion. LUNGS: Equal air entry with diffuse rhonchi CVS: Regular rate and rhythm, normal S1 and S2, no gallops, no murmurs, no rubs ABDOMEN: Soft, nontender. No hepatosplenomegaly, normal bowel sounds, no guarding or rigidity. EXTREMITIES: No clubbing, no edema, no cyanosis, 2+ pulses and upper and lower extremities. MUSCULOSKELETAL: Muscle strength and tone normal. SPINE: No scoliosis or deformity SKIN: No rashes CENTRAL NERVOUS SYSTEM: No focal deficits, tone is normal in all 4 extremities. PSYCHIATRIC: Alert and oriented -3. Appropriate affect. Intact judgment and insight. - Labs CBC & Chem 7: 11/13/19 05:39 11/13/19 05:39 Labs: Abnormal Lab Results - Last 24 Hours (Table) 11/12/19 11/12/19 11/13/19 Range/Units 16:43 21:35 05:39 RBC 3.86 L (4.30-5.90) m/uL Hgb 11.9 L (13.0-17.5) gm/dL Hct 38.8 L (39.0-53.0) % MCV 100.5 H (80.0-100.0) fL MCHC 30.6 L (31.0-37.0) g/dL Sodium (137-145) mmol/L Chloride (98-107) mmol/L Creatinine (0.66-1.25) mg/dL Glucose (74-99) mg/dL POC Glucose (mg/dL) 131 H 129 H (75-99) mg/dL Total Bilirubin (0.2-1.3) mg/dL AST (17-59) U/L ALT (4-49) U/L Alkaline Phosphatase (38-126) U/L Total Protein (6.3-8.2) g/dL Albumin (3.5-5.0) g/dL 11/13/19 11/13/19 11/13/19 Range/Units 05:39 07:06 11:15 RBC (4.30-5.90) m/uL Hgb (13.0-17.5) gm/dL Hct (39.0-53.0) % MCV (80.0-100.0) fL MCHC (31.0-37.0) g/dL Sodium 133 L (137-145) mmol/L Chloride 97 L (98-107) mmol/L Creatinine 0.56 L (0.66-1.25) mg/dL Glucose 107 H (74-99) mg/dL POC Glucose (mg/dL) 123 H 264 H (75-99) mg/dL Total Bilirubin 7.8 H (0.2-1.3) mg/dL AST 150 H (17-59) U/L ALT 163 H (4-49) U/L Alkaline Phosphatase 1119 H (38-126) U/L Total Protein 5.9 L (6.3-8.2) g/dL Albumin 2.9 L (3.5-5.0) g/dL Microbiology - Last 24 Hours (Table) 11/08/19 14:55 Blood Culture - Preliminary Blood No Growth after 96 hours Assessment and Plan Assessment: 1 Generalized weakness secondary to suspected pancreatic adenocarcinoma with metastasis to the lung, bone. CA 199 antigen 130. Status post ERCP with stent placements and biopsies taken. Pathology pending. 2 Mediastinal and right hilar lymphadenopathy measuring up to 2.9 cm suspicious for metastatic disease. There is also a patchy density in the right lung cannot rule out developing pneumonia 3 Permeative distraction of the left acetabulum and left moe along with the superior right acetabulum suspicious for osseous metastatic disease. Pathologic compression fractures of L3 and L4 with moderate spinal canal stenosis 4 Hydropic gallbladder with mild wall thickening suspect secondary to biliary obstruction versus acute cholecystitis 5 Chronic and ongoing tobacco dependence 6 Chronic heavy alcohol use, states quit 3 months ago 7 Decubitus ulcer in the coccyx 8 Protein calorie malnutrition, BMI 16.5 9 Elevated LFTs. 10 Poor overall functional performance based on the above-mentioned multiple comorbidities Plan: The patient was seen and evaluated by Dr. King Most likely metastatic pancreatic cancer ERCP and biopsies performed. Pathology pending. He is again educated regarding the importance of complete smoking cessation, alcohol cessation Overall prognosis remains quite guarded. I, the cosigning physician, performed a history & physical examination of the patient. Lungs sounds with few scattered rhonchi, end expiratory wheeze, diminished. Maintaining good O2 saturations in the 90s on room air. I discussed the assessment and plan of care with my nurse practitioner, Valerie Tucker. I attest to the above note as dictated by her.
[2019-11-13] MEDS: FOLIC ACID 1 MG TAB PO SCH (12:57)
[2019-11-13] MEDS: MULTIVITAMINS, THERA 1 EACH TAB PO SCH (12:57)
[2019-11-13] MEDS: THIAMINE 100 MG TAB PO SCH (12:57)
--- NOTE | 2019-11-13 13:33 | P.CONS ---
History of Present Illness - Reason for Consult Consult date: 11/12/19 bone metastases Requesting physician: Shan Carmen - Chief Complaint weakness, pain - History of Present Illness The patient is a 59 year old male with a history of chronic alcohol and tobacco abuse. He presented to the ER on 11/07 complaining of weakness and weight loss. He was found to be jaundiced with a bili of 6.8. CT of the chest/abd/pelvis was limited by cachexia, but did reveal some right hilar/mediastinal adenopathy. There was concern for a head of the pancreas mass causing intra/extrahepatic biliary dilation. Concern for L3/4 pathologic compression fracture evident as well as permeative lesions in the left ishium and acetabulum. ERCP performed revealed stricturing of the pancreatic duct as well as the proximal 2 cm of the CBD. EGD also revealed multiple 1-1.5 cm raised lesions in the gastric fundus. These lesions were biopsied and cytology taken from CBD which is pending. Stenting was performed. At the current time, the patient is alert and oriented. He is reporting no significant abdominal pain, but does report pain in both hips. He states he has been ambulating with a walker. He states that his sister is helping him with his decisions. Review of Systems Constitutional: Reports anorexia, Reports malaise, Reports poor appetite, Reports weakness Eyes: denies blurred vision Ears: bilateral: decreased hearing Ears, nose, mouth and throat: Denies headache Cardiovascular: Reports dyspnea on exertion Respiratory: Denies cough, Denies pleurisy Gastrointestinal: Reports early satiety, Reports jaundice, Reports loss of appetite Musculoskeletal: Reports muscle weakness Psychiatric: Reports confusion, Reports difficulty concentrating Past Medical History Past Medical History: No Reported History, Hypertension Additional Past Medical History / Comment(s): fatty tissue on right cheek and came in with pressure ulcer on coccyx History of Any Multi-Drug Resistant Organisms: None Reported Past Surgical History: Orthopedic Surgery Additional Past Surgical History / Comment(s): left ankle sx Past Anesthesia/Blood Transfusion Reactions: No Reported Reaction Past Psychological History: Anxiety Smoking Status: Current some day smoker Past Alcohol Use History: None Reported, Daily, Heavy Past Drug Use History: None Reported - Past Family History Mother Additional Family Medical History / Comment(s): of colon cancer Father History Unknown: Yes Additional Family Medical History / Comment(s): etoh Medications and Allergies Home Medications Medication Instructions Recorded Confirmed Type No Known Home Medications 11/08/19 11/08/19 History Allergies Allergy/AdvReac Type Severity Reaction Status Date / Time No Known Allergies Allergy Verified 11/08/19 14:29 Physical Exam Vitals: Vital Signs Temp Pulse Resp BP Pulse Ox 11/13/19 11:43 97.6 F 78 17 165/93 94 L 11/13/19 04:47 97.7 F 87 17 174/84 96 11/12/19 20:23 97.9 F 91 16 155/88 93 L Intake and Output 11/12/19 11/13/19 11/13/19 22:59 06:59 14:59 Intake Total 100 Output Total 450 750 100 Balance -450 -650 -100 Intake: Oral 100 Output: Urine 450 750 100 Other: Voiding Method Urinal Urinal Urinal # Voids 3 - Constitutional General appearance: thin (cachexia) - EENT Eyes: EOMI, scleral icterus ENT: hearing grossly normal - Neck Neck: no lymphadenopathy - Respiratory Respiratory: bilateral: CTA - Cardiovascular Rhythm: regular - Gastrointestinal General gastrointestinal: no distended, soft (Firm liver border in RUQ) - Integumentary Integumentary: jaundiced - Neurologic Neurologic: CNII-XII intact - Musculoskeletal Musculoskeletal: generalized weakness - Psychiatric Psychiatric: appropriate affect Results CBC & Chem 7: 11/13/19 05:39 11/13/19 05:39 Labs: Abnormal Lab Results - Last 24 Hours (Table) 11/12/19 11/12/19 11/13/19 Range/Units 16:43 21:35 05:39 RBC 3.86 L (4.30-5.90) m/uL Hgb 11.9 L (13.0-17.5) gm/dL Hct 38.8 L (39.0-53.0) % MCV 100.5 H (80.0-100.0) fL MCHC 30.6 L (31.0-37.0) g/dL Sodium (137-145) mmol/L Chloride (98-107) mmol/L Creatinine (0.66-1.25) mg/dL Glucose (74-99) mg/dL POC Glucose (mg/dL) 131 H 129 H (75-99) mg/dL Total Bilirubin (0.2-1.3) mg/dL AST (17-59) U/L ALT (4-49) U/L Alkaline Phosphatase (38-126) U/L Total Protein (6.3-8.2) g/dL Albumin (3.5-5.0) g/dL 11/13/19 11/13/19 11/13/19 Range/Units 05:39 07:06 11:15 RBC (4.30-5.90) m/uL Hgb (13.0-17.5) gm/dL Hct (39.0-53.0) % MCV (80.0-100.0) fL MCHC (31.0-37.0) g/dL Sodium 133 L (137-145) mmol/L Chloride 97 L (98-107) mmol/L Creatinine 0.56 L (0.66-1.25) mg/dL Glucose 107 H (74-99) mg/dL POC Glucose (mg/dL) 123 H 264 H (75-99) mg/dL Total Bilirubin 7.8 H (0.2-1.3) mg/dL AST 150 H (17-59) U/L ALT 163 H (4-49) U/L Alkaline Phosphatase 1119 H (38-126) U/L Total Protein 5.9 L (6.3-8.2) g/dL Albumin 2.9 L (3.5-5.0) g/dL Microbiology - Last 24 Hours (Table) 11/08/19 14:55 Blood Culture - Preliminary Blood No Growth after [address] scan - abdomen: report reviewed, image reviewed CT scan - chest: report reviewed, image reviewed CT scan - pelvis: report reviewed, image reviewed Assessment and Plan Plan: 59 year old male with history of chronic alcohol abuse presents with cachexia, generalized weakness and jaundice. Imaging findings are concerning for mass in head of pancreas. Concern for bone metastases involving the left hip and pathologic fracture of L3/4 Pathology results from ERCP pending. The patient is a poor historian. 1. Bone-metastases: Patient does report bilateral hip pain L>R. Depending on how he decides to proceed he may be a candidate for brief palliative course of XRT. Will discuss with medical oncology as well as patient's family (sister) regarding goals of care. 2. Likely pancreatic neoplasm: Await final pathology. Certainly if this is pancreatico-biliary adenocarcinoma then prognosis is poor. Patient currently unlikely to tolerate much therapy; BMI of 16. Despite recent ERCP and stenting his bili is trending up; may need IR eval. Medical oncology following, will await pathology prior to final recommendations. Time with Patient: Greater than 30
[2019-11-13 17:05] LABS: Glucose,Whole Blood 105 mg/dL (75-99)
--- NOTE | 2019-11-13 19:16 | PN ---
PROGRESS NOTE DATE OF SERVICE: 11/13/2019 This 59-year-old gentleman who was admitted with obstructive jaundice, possibly suspected of pancreatic head malignancy. The patient being closely monitored. The PT/OT evaluated the patient for possible ECF rehab. At this time, patient is extremely weak. No chest pain. No palpitations. Multiple consultants including Radiation/Oncology have seen the patient. Final pathology is pending at this time. PHYSICAL EXAMINATION: Alert and oriented x3. Pulse 78. Blood pressure 165/93, respirations 17, temperature 97.2, pulse ox 94% on room air. HEENT: Conjunctivae normal. NECK: No JVD. CARDIOVASCULAR: S1, S2 muffled. RESPIRATORY SYSTEM: Breath sounds diminished at the bases. A few scattered rhonchi and crackles. ABDOMEN is soft. Mild diffuse distention. LEGS are no edema. No swelling. CENTRAL NERVOUS SYSTEM: Diffusely weak. LABS: WBC 8.2, hemoglobin 11.8, MCV 100.9. AST/ ALT 151, 63, alkaline phosphatase 1119 and total bilirubin is 7.8. PAST MEDICAL HISTORY: Reviewed. REVIEW OF SYSTEMS: CARDIOVASCULAR: No angina or palpitations. RESPIRATIONS: As mentioned earlier. GI mentioned earlier. : No dysuria. CENTRAL NERVOUS SYSTEM: No focal deficits. CURRENT MEDICATIONS: Reviewed and include: 1. [place] p.r.n. 2. Ventolin. 3. Zithromax. 4. Symbicort 160/4.5 b.i.d. 5. Dilaudid. 6. NovoLog. 7. Ativan. 8. Multivitamins. 9. Vitamin B1. ASSESSMENT: 1. Obstructive jaundice with intra and extrahepatic biliary dilatation, possibly secondary to pancreatic neoplasm, head of the pancreas. 2. Hypertension. 3. Status post ERCP showing distal CBD stricture measuring 2 cm in length with proximal biliary dilatation status post CBD stent placement. Multiple raised lesions including 1-1.5 cm in the center ulceration noted in the fundus of stomach status post biopsies. 4. COVID-19 ruled out. 5. Chronic obstructive pulmonary disease acute exacerbation with acute purulent tracheobronchitis. 6.with sepsis present on admission. 7. Change in mental status metabolic encephalopathy, acute, multifactorial. 8. Hyponatremia. 9. Severe emaciation. 10.Possible metastatic malignancy with multiple lesions in the bones as well lymphadenopathy in chest. 11.Anemia of chronic disease or malignancy. 12.History of ETOH. 13.Hypertension. 14.Poor social support system. 15.History of anxiety. 16.History of continued ongoing nicotine dependence. 17.Severe protein calorie malnutrition with body mass index of 16.5. 18.History of recent weight loss. 19.Gait dysfunction. 20.FULL CODE. RECOMMENDATIONS AND DISCUSSION: Recommend to continue current medications, management and symptomatic treatment. Otherwise at this time PT, OT evaluation, ECF rehab. Follow closely with Hematology/Oncology and multiple consultants. Prognosis guarded because of multiple complex medical issues and further recommendations to follow. Repeat labs will be ordered. MMODL / IJN: [id number] / MTDD
[2019-11-13 21:36] LABS: Glucose,Whole Blood 104 mg/dL (75-99)
--- NOTE | 2019-11-13 22:21 | PN ---
PROGRESS NOTE DATE OF SERVICE: 11/13/2019 REASON FOR FOLLOWUP: 1. Sacral pressure ulcer. 2. Question of pneumonia. INTERVAL HISTORY: The patient is currently afebrile. Patient is breathing comfortably. Patient denies having any chest pain, shortness of breath or cough. No nausea, vomiting. No abdominal pain. Pain to the sacral wound area. PHYSICAL EXAMINATION: Blood pressure 155/93 with a pulse of 78. Temperature 97.6. He is 94% on 2 L nasal cannula. General description is a middle-aged male lying in bed in no distress. Respiratory system: Unlabored breathing. Clear to auscultation anteriorly. Heart S1, S2. Regular rate and rhythm. Abdomen soft, no tenderness. LABS: Hemoglobin is 11.8, white count 8.9, BUN of 13, creatinine 0.56. Blood culture negative sputum. Sacral wound culture so far negative as well. DIAGNOSTIC IMPRESSION AND PLAN: 1. Patient with admission to the hospital with multiple symptoms in this patient who did have stage III sacral pressure ulcer. No cellulitis. Local care to continue with Medihoney followed by moist dressing. 2. The patient with abnormal x-ray and a question of pneumonia. Clinically not behaving as such. Antibiotic can be safely discontinued with the culture negative and normal white count. MMODL / IJN: [id number] /
[2019-11-14] MEDS: HYDROmorphone 0.5 MG/0.5 ML SYRINGE IVP PRN (02:09)
[2019-11-14] MEDS: HYDROcodone/APAP 5-325MG 1 EACH TAB PO PRN ×3 (04:28→22:19)
[2019-11-14 06:21] LABS: Basophils % (A) 0 %; Eosinophils # (A) 0.1 k/uL (0-0.7); Eosinophils % (A) 1 %; HCT 37.8 % (39.0-53.0); HGB 12.2 gm/dL (13.0-17.5); Lymphocytes # (A) 0.6 k/uL (1.0-4.8); Lymphocytes % (A) 6 %; MCH 31.9 pg (25.0-35.0); MCHC 32.1 g/dL (31.0-37.0); MCV 99.3 fL (80.0-100.0); Mean Platelet Volume 7.5; Monocytes # (A) 0.3 k/uL (0-1.0); Monocytes % (A) 2 %; Neutrophils # (A) 9.4 k/uL (1.3-7.7); Neutrophils % (A) 91 %; Platelet Count 310 k/uL (150-450); RBC 3.81 m/uL (4.30-5.90); RDW 13.1 % (11.5-15.5); WBC 10.3 k/uL (3.8-10.6)
[2019-11-14 06:30] LABS: ALT 202 U/L (4-49); AST 216 U/L (17-59); African American GFR (CKD) >90 (>60 ml/min/1.73 sqM); Albumin 2.7 g/dL (3.5-5.0); Alkaline Phosphatase 1281 U/L (38-126); Anion Gap 7 mmol/L; Blood Urea Nitrogen 12 mg/dL (9-20); Calcium 8.4 mg/dL (8.4-10.2); Carbon Dioxide 28 mmol/L (22-30); Chloride 98 mmol/L (98-107); Glucose 91 mg/dL (74-99); Non-African American GFR(CKD) >90 (>60 ml/min/1.73 sqM); Potassium 3.9 mmol/L (3.5-5.1); Sodium 133 mmol/L (137-145); Total Bilirubin 8.8 mg/dL (0.2-1.3); Total Protein 5.7 g/dL (6.3-8.2)
[2019-11-14 07:08] LABS: Glucose,Whole Blood 103 mg/dL (75-99)
[2019-11-14] MEDS: ALBUTEROL HFA INHALER INHALATION SCH ×4 (07:31→20:10)
[2019-11-14] MEDS: SYMBICORT 160-4.5 MCG INHALER INHALATION SCH ×2 (07:31→20:10)
[2019-11-14] MEDS: INSULIN ASPART (NovoLOG) 100 UNIT/ML VIAL SQ SCH (08:42)
[2019-11-14] MEDS: AZITHROMYCIN 500 MG TAB PO SCH (08:44)
[2019-11-14] MEDS: PANTOPRAZOLE 40 MG TABLET PO SCH (08:44)
[2019-11-14] MEDS: predniSONE 10 MG TAB PO SCH (08:44)
[2019-11-14 11:36] LABS: Glucose,Whole Blood 124 mg/dL (75-99)
--- NOTE | 2019-11-14 12:04 | PN ---
PROGRESS NOTE DATE OF SERVICE: 11/14/2019 The patient is a 59-year-old white male admitted to the hospital with progressive weight loss and obstructive jaundice. He underwent an ERCP two days ago that showed a distal common bile duct stricture for which he underwent a plastic stent placement. He also had a pancreatic duct stricture. The cytology is pending. After the ERCP he continued to have persistently elevated bilirubin, which is gradually increasing and today is 8.8 g/dL. The patient is clinically asymptomatic. He denies any abdominal pain. No nausea, vomiting. No rectal bleeding or melena. He has been complaining of some hip pain. He was seen by Dr. Mckeon from Radiation Oncology and at this time, awaiting biopsy results. PHYSICAL EXAMINATION: Appears comfortable, no obvious distress. VITAL SIGNS: Stable. Blood pressure 164/84, pulse rate 85, temperature 98.4. HEENT examination unremarkable. Conjunctivae pink. Sclerae icteric. Oral cavity, no lesions. NECK: No JVD or lymph node enlargement. CHEST: Clear to auscultation. HEART: Regular rate and rhythm. ABDOMEN: Soft. Bowel sounds are positive. No organomegaly. EXTREMITIES: No pedal edema. SKIN: No rashes. NEUROLOGIC: Alert and oriented x3. No focal deficits. LABS: WBC 10.3, hemoglobin 12.2, platelets normal. Basic metabolic panel is within normal limits. T-bilirubin is 8.8. AST and ALT at 216 and 202 respectively. Alkaline phosphatase is 1281. IMPRESSION: 1. Possible pancreatic mass with metastasis. ERCP revealed a distal common bile duct stricture with proximal biliary dilation status post CBD stent placement. However, his bilirubin continues to be increasing, possibly related to stent occlusion. 2. Pancreatic head mass with a pancreatic ductal stricture, cytology pending. 3. Multiple small ulcerations in the gastric fundus of the stomach. Pathology still pending. 4. Possible bone metastasis. Dr. Mckeon from Radiology Oncology has evaluated the patient. RECOMMENDATIONS: 1. Continue with symptomatic and supportive care. 2. Await pathology. 3. Repeat labs in the morning and if the bilirubin continues to progressively increase, we will have to consider repeating an ERCP for stent exchange. 4. We will decide further based on his labs tomorrow and pathology report. Thank you for this consultation. MMODL / IJN: [id number] /
[2019-11-14] MEDS: THIAMINE 100 MG TAB PO SCH (12:47)
[2019-11-14] MEDS: MULTIVITAMINS, THERA 1 EACH TAB PO SCH (12:47)
[2019-11-14] MEDS: FOLIC ACID 1 MG TAB PO SCH (12:47)
[2019-11-14] MEDS: SODIUM CHLORIDE 0.9% 1,000 ML IV SCH (12:48)
[2019-11-14] MEDS: LACTATED RINGERS 1,000 ML IV SCH (12:48)
--- NOTE | 2019-11-14 17:43 | PN ---
PROGRESS NOTE . DATE OF SERVICE: 11/14/2019 This 59-year-old gentleman who was admitted with obstructive jaundice with intrahepatic and extrahepatic biliary obstruction also had suspected possibly malignancy. Multiple consultants are following the patient closely. The patient is slated to go for ECF rehab. No chest pain. No palpitations. LFTs are still elevated. PHYSICAL EXAMINATION: Alert and oriented x3. Pulse is 93, blood pressure 150/60, respirations 17, temperature 97.8, pulse ox 94% on room. HEENT: Conjunctivae normal. NECK: No JVD. CARDIOVASCULAR: S1, S2 muffled. RESPIRATORY: Breath sounds diminished in the bases. A few rhonchi. No crackles. Abdomen soft. Nontender. Nervous system diffusely weak. LABS: WBC 10.2, hemoglobin 12.2 sodium 133. Other labs are noted. ASSESSMENT: 1. Obstructive jaundice with intra- and extrahepatic biliary dilatation, possibly secondary to pancreatic neoplasm head of the pancreas. 2. Hypertension. 3. Status post ERCP showing distal CBD stricture measuring 2 cm in length with proximal biliary dilatation status post CBD stent placement. Multiple raised lesions including 1 to 1.4 cm with ulceration noted in the fundus of the stomach status post biopsies. 4. COVID-19 ruled out. 5. Chronic obstructive pulmonary disease, acute exacerbation, acute purulent tracheobronchitis. 6. Possible sepsis present on admission. 7. Change in mental status, metabolic encephalopathy, acute, multifactorial. 8. Hyponatremia. 9. Severe emaciation. 10.Possible metastatic malignancy with multiple lesions in the bones as well as lymphadenopathy on chest. 11.Anemia of chronic disease or of malignancy. 12.History of ETOH. 13.Hypertension. 14.History of poor social support system. 15.History of anxiety. 16.Continued ongoing nicotine dependence. 17.Severe protein calorie malnutrition with body mass index of 16.5. 18.History of recent weight loss. 19.Gait dysfunction. 20.FULL CODE. RECOMMENDATIONS AND DISCUSSION: I recommend to continue current medications, continue to monitor, management and symptomatic treatment. Otherwise, at this time, I recommend repeat labs. PT/OT evaluation, possible ECF rehab. Guarded prognosis. Further recommendations to follow. MMODL / IJN: [id number] /
--- NOTE | 2019-11-14 17:46 | PN ---
PROGRESS NOTE DATE OF SERVICE: 11/14/2019. This 59-year-old gentleman who was admitted with multiple medical problems, also had sacral decubitus stage II secondary to pressure ulcer. MMODL / IJN: [id number] /
[2019-11-14 20:42] LABS: Glucose,Whole Blood 178 mg/dL (75-99)
--- NOTE | 2019-11-15 00:21 | PN ---
PROGRESS NOTE DATE OF SERVICE: 11/14/2019 REASON FOR FOLLOWUP: 1. Stage III sacral pressure ulcer. 2. Question of pneumonia. INTERVAL HISTORY: The patient is currently afebrile. The patient has been breathing comfortably on room air. No chest pain or cough. No abdominal pain or any diarrhea. No pain to the sacral wound area. PHYSICAL EXAMINATION: Blood pressure 151/63 with a pulse of 93, temperature 97.8. He is 95% on room air. General description is a middle-aged male lying in bed in no distress. RESPIRATORY SYSTEM: Unlabored breathing, decreased breath sounds in the bases. No wheeze. HEART: S1, S2. Regular rate and rhythm. ABDOMEN: Soft, no tenderness. Sacral wound less slough tissue, minimal surrounding redness, no drainage. LABS: Hemoglobin is 12.2, white count 10.3, BUN of 12, creatinine 0.52. DIAGNOSTIC IMPRESSION AND PLAN: 1. Patient with stage III sacral pressure ulcer with no cellulitis. Culture has been negative. Local care to continue with Medihoney followed by moist dressing, keep the area dry and off the pressure. 2. The patient with abnormal x-ray and a question of pneumonia and not behaving as such. Antibiotic can be safely discontinued. MMODL / IJN: [id number] /
[2019-11-15 06:55] LABS: Basophils % (A) 0 %; Eosinophils % (A) 0 %; HCT 36.7 % (39.0-53.0); HGB 11.5 gm/dL (13.0-17.5); Lymphocytes # (A) 0.5 k/uL (1.0-4.8); Lymphocytes % (A) 4 %; MCH 31.5 pg (25.0-35.0); MCHC 31.4 g/dL (31.0-37.0); MCV 100.5 fL (80.0-100.0); Mean Platelet Volume 7.5; Monocytes # (A) 0.3 k/uL (0-1.0); Monocytes % (A) 2 %; Neutrophils # (A) 10.6 k/uL (1.3-7.7); Neutrophils % (A) 92 %; Platelet Count 293 k/uL (150-450); RBC 3.65 m/uL (4.30-5.90); RDW 13.6 % (11.5-15.5); WBC 11.5 k/uL (3.8-10.6)
[2019-11-15 07:03] LABS: Glucose,Whole Blood 140 mg/dL (75-99)
[2019-11-15 07:18] LABS: ALT 287 U/L (4-49); AST 362 U/L (17-59); African American GFR (CKD) >90 (>60 ml/min/1.73 sqM); Albumin 2.7 g/dL (3.5-5.0); Anion Gap 8 mmol/L; Blood Urea Nitrogen 11 mg/dL (9-20); Calcium 8.4 mg/dL (8.4-10.2); Carbon Dioxide 26 mmol/L (22-30); Chloride 100 mmol/L (98-107); Glucose 129 mg/dL (74-99); Non-African American GFR(CKD) >90 (>60 ml/min/1.73 sqM); Potassium 3.8 mmol/L (3.5-5.1); Sodium 134 mmol/L (137-145); Total Bilirubin 10.6 mg/dL (0.2-1.3); Total Protein 5.5 g/dL (6.3-8.2)
[2019-11-15 07:32] LABS: Alkaline Phosphatase 1479 U/L (38-126)
[2019-11-15] MEDS: THIAMINE 100 MG TAB PO SCH (07:54)
[2019-11-15] MEDS: MULTIVITAMINS, THERA 1 EACH TAB PO SCH (07:54)
[2019-11-15] MEDS: PANTOPRAZOLE 40 MG TABLET PO SCH (07:55)
[2019-11-15] MEDS: FOLIC ACID 1 MG TAB PO SCH (07:55)
[2019-11-15] MEDS: HYDROcodone/APAP 5-325MG 1 EACH TAB PO PRN ×2 (07:55→17:21)
[2019-11-15] MEDS: predniSONE 10 MG TAB PO SCH (07:55)
[2019-11-15] MEDS: AZITHROMYCIN 500 MG TAB PO SCH (07:55)
[2019-11-15] MEDS: LACTATED RINGERS 1,000 ML IV SCH (07:58)
[2019-11-15] MEDS: SODIUM CHLORIDE 0.9% 1,000 ML IV SCH (07:59)
[2019-11-15] MEDS: ALBUTEROL HFA INHALER INHALATION SCH ×4 (08:27→19:55)
[2019-11-15] MEDS: SYMBICORT 160-4.5 MCG INHALER INHALATION SCH ×2 (08:27→19:54)
--- NOTE | 2019-11-15 11:25 | P.PN ---
Subjective Progress Note Date: 11/15/19 Principal diagnosis: weakness, hip pain In follow-up today patient is alert, sometimes difficult to understand what he saying, he does appear to understand most of his situation. He is asking when is can be able to go. He states he is comfortable when he is laying, he needs 2 people to help him get up, he states he has two people at home to help him get up. Objective - Vital Signs Vital signs: Vital Signs Temp 98 F 11/15/19 04:50 Pulse 91 11/15/19 04:50 Resp 17 11/15/19 04:50 BP 143/81 11/15/19 04:50 Pulse Ox 95 11/15/19 04:50 Intake & Output 11/14/19 11/15/19 11/15/19 18:59 06:59 18:59 Intake Total 1440 Output Total 300 500 Balance -300 940 Weight 52.163 kg Intake: Intake, IV Titration 240 Amount Sodium Chloride 0.9% 1, 240 000 ml @ 20 mls/hr IV . Q24H [facility] Rx#:[id number] Oral 1200 Output: Urine 300 500 Other: Voiding Method Urinal Urinal Urinal # Voids 2 - Constitutional General appearance: Present: cooperative, no acute distress, thin - EENT Eyes: Present: EOMI, poor dentition, scleral icterus ENT: Present: hearing grossly normal - Respiratory Respiratory: bilateral: diminished - Cardiovascular Rhythm: regular Heart sounds: normal: S1, S2 Abnormal Heart Sounds: Absent: systolic murmur, diastolic murmur, rub, S3 Gallop, S4 Gallop, click, other - Peripheral edema leg Peripheral Edema: bilateral: None - Gastrointestinal General gastrointestinal: Present: normal bowel sounds, soft - Integumentary Integumentary: Present: jaundiced - Neurologic Neurologic: Present: CNII-XII intact - Musculoskeletal Musculoskeletal Comment(s): leg pain from mets Musculoskeletal: Present: generalized weakness - Psychiatric Psychiatric: Present: A&O x's 3 - Labs CBC & Chem 7: 11/15/19 06:14 11/15/19 06:14 Labs: Abnormal Lab Results - Last 24 Hours (Table) 11/14/19 11/14/19 11/15/19 Range/Units 11:35 20:41 06:14 WBC 11.5 H (3.8-10.6) k/uL RBC 3.65 L (4.30-5.90) m/uL Hgb 11.5 L (13.0-17.5) gm/dL Hct 36.7 L (39.0-53.0) % MCV 100.5 H (80.0-100.0) fL Neutrophils # 10.6 H (1.3-7.7) k/uL Lymphocytes # 0.5 L (1.0-4.8) k/uL Sodium (137-145) mmol/L Creatinine (0.66-1.25) mg/dL Glucose (74-99) mg/dL POC Glucose (mg/dL) 124 H 178 H (75-99) mg/dL Total Bilirubin (0.2-1.3) mg/dL AST (17-59) U/L ALT (4-49) U/L Alkaline Phosphatase (38-126) U/L Total Protein (6.3-8.2) g/dL Albumin (3.5-5.0) g/dL 11/15/19 11/15/19 Range/Units 06:14 06:59 WBC (3.8-10.6) k/uL RBC (4.30-5.90) m/uL Hgb (13.0-17.5) gm/dL Hct (39.0-53.0) % MCV (80.0-100.0) fL Neutrophils # (1.3-7.7) k/uL Lymphocytes # (1.0-4.8) k/uL Sodium 134 L (137-145) mmol/L Creatinine 0.48 L (0.66-1.25) mg/dL Glucose 129 H (74-99) mg/dL POC Glucose (mg/dL) 140 H (75-99) mg/dL Total Bilirubin 10.6 H (0.2-1.3) mg/dL AST 362 H (17-59) U/L ALT 287 H (4-49) U/L Alkaline Phosphatase 1479 H (38-126) U/L Total Protein 5.5 L (6.3-8.2) g/dL Albumin 2.7 L (3.5-5.0) g/dL Microbiology - Last 24 Hours (Table) 11/08/19 14:55 Blood Culture - Final Blood No Growth after 144 hours Assessment and Plan (1) Pancreatic mass Narrative/Plan: Discussed with patient biopsy results still pending. Current Visit: Yes Status: Acute Priority: High Code(s): K86.89 - OTHER SPECIFIED DISEASES OF PANCREAS SNOMED Code(s): 849965678 (2) Biliary stent obstruction Narrative/Plan: Gastroenterology following patient. Pt has had stent placed. Due to his significant increase in liver enzymes considering possible stent exchange versus percutaneous biliary drain. Pending GI recommendations. Current Visit: Yes Status: Acute Priority: High Code(s): T85.590A - [facility] COMPL OF BILE DUCT PROSTHESIS, INITIAL ENCOUNTER SNOMED Code(s): 241097128 (3) Bone metastasis Narrative/Plan: Calcium normal. Patient may not be a candidate for bisphosphonate/Rank ligand inhibitors secondary to poor dentition. Possible radiation for painful metastases, reduce fracture risk. Current Visit: Yes Status: Acute Priority: High Code(s): C79.51 - SECONDARY MALIGNANT NEOPLASM OF BONE SNOMED Code(s): 63941943 (4) Pain due to malignant neoplasm metastatic to bone Narrative/Plan: Patient has been seen by Radiation Oncology. Plan is to begin palliative radiation to painful iliac metastasis. Current Visit: Yes Status: Acute Priority: High Code(s): G89.3 - NEOPLASM RELATED PAIN (ACUTE) (CHRONIC); C79.51 - SECONDARY MALIGNANT NEOPLASM OF BONE SNOMED Code(s): 593212233 Plan: Discussed case with Internal Medicine. Family does not feel that they are able to care for patient in the home. Pending discharge plan Will discuss the case with patient's sister, who pt has stated is making his treatment decisions. Pending pathology to discuss prognosis and look at what treatment options would be available with a reasonable amount of relief of disease. These will likely be limited based on pt PS and overall compromised health. Update to plan of care once more info available
--- NOTE | 2019-11-15 11:26 | P.PN ---
Subjective Progress Note Date: 11/15/19 Principal diagnosis: Generalized weakness This is a 59-year-old gentleman who follows with Dr. Mendez as his primary care provider. He has a history of hypertension, anxiety, chronic tobacco dependence, heavy alcohol abuse. He stated he did quit drinking about 3 months ago. He was brought in by EMS to the emergency room yesterday with generalized weakness lower extremity edema and jaundice. He had been having diarrhea and stated his bowel movements have been green. He's been short of breath and had a loose nonproductive cough for several months now. He had been seen by our group approximately a year ago for acute hypoxic respiratory failure secondary to COPD exacerbation and tracheobronchitis. Chest x-ray at that time showed no acute pulmonary process. Yesterday's chest x-ray revealed evidence of COPD with patchy peripheral right midlung density, developing pneumonia not excluded. There is also a right hilar soft tissue prominence suspicious for underlying lymphadenopathy/mass. Ultrasound of the gallbladder revealed hydropic gallbladder with hepatic dilatation and bulky heterogenous appearance of the pancreas. Unable to exclude pancreatic head mass and secondary biliary obstruction. Calcifications and sludge within the distended gallbladder. Dopplers of the lower extremities were negative for DVT. Computed tomography scan of the chest abdomen and pelvis revealed intrahepatic and extrahepatic biliary ductal dilatation. Unable to exclude a 7.0 x 5.1 x 3.2 cm pancreatic head mass/pancreatic adenocarcinoma. There is also noted mediastinal and right hilar lymphadenopathy measuring up to 2.9 cm suspicious for metastatic disease. There is also osseous metastatic disease with permeative distraction of the left acetabulum and left ischium. Permeative lucency within the superior right acetabulum. Pathologic compression fractures of L3 and L4. Moderate spinal canal stenosis. Hydropic gallbladder with mild wall thickening. Patchy density in the right lung. The patient is seen today in consultation on the regular medical floor. He is currently awake and alert in no acute distress. He is quite cachectic appearing disheveled. Maintaining O2 saturation in the 90s on room air. He's been afebrile. Hemodynamically stable. Coccyx wound culture pending. White count 7.1. Hemoglobin 11.3. MCV 101. Sodium 135. Potassium 4.2. Creatinine 0.44. AST 75. ALT 62. Alk phos 653. CA 199 antigen 130. Coronavirus by PCR not detected. He has been initiated on ceftriaxone and azithromycin along with Symbicort, IV Solu-Medrol and albuterol. On 11/11/2019 patient seen in follow-up on general oncology floor. He is status post ERCP with brush cytology, CBD stent placement and EGD with biopsy for diagnosis of jaundice and possible pancreatic mass. There was irregular stricture involving the entire pancreatic duct and the guidewire could not be passed into the pancreatic duct and cytology could not be performed. There was central ulcerations within the fundus of the stomach that were biopsied. Currently the biopsies are pending. Patient is seen resting comfortably in bed, denies any distress, room air pulse ox of 94-96%, hemodynamically stable, his been afebrile. No complaints of shortness of breath, today's lab work has been reviewed showing white blood cell count of 8.6, hemoglobin of 11.4, serum sodium is 133, the rest of electrolytes are within normal limits, BUN 16 creatinine 0.59, LFTs have increased with AST of 140, ALT of 114, and alkaline phosphatase of 1041. Patient remains on Rocephin and azithromycin. Lung sounds are positive for some scattered rhonchi, patient is on IV steroids and inhalers. The patient is seen today 11/12/2019 in follow-up on the general oncology floor. He is currently awake and alert in no acute distress. He is resting comfortably in bed. He denies any significant abdominal discomfort, nausea or vomiting. Blood culture reveals no growth. Wound culture reveals no growth. White count 8.9. Hemoglobin 11.9. Creatinine 0.58. AST 142. ALT 142. Alk phos 1020. He is maintaining O2 saturations in the 90s on room air. He's afebrile. He remains on Symbicort, albuterol, IV Solu-Medrol. Antibiotics in the form of ceftriaxone and azithromycin. He is status post ERCP with brush cytology, CBD stent placement. EGD with biopsies pending. The patient is seen today 11/13/2019 in follow-up on the regular medical floor. He is resting comfortably in bed. Awake and alert in no acute distress. He denies any shortness of breath, cough or congestion. No significant abdominal discomfort. He is maintaining good O2 saturation in the mid 90s on room air. He's afebrile. Slightly hypertensive. Blood culture reveals no growth. Wound culture reveals no growth. White count 8.9. Hemoglobin 11.9. MCV 100.5. Sodium 133. Potassium 4.4. Creatinine 0.56. AST 150. ALT 163. GI biopsy still pending. He remains on ceftriaxone and azithromycin. Continue on S ymbicort, albuterol, IV Solu-Medrol. The patient is seen today 11/15/2019 in follow-up on the regular medical floor. He is currently resting comfortably in bed. Awake and alert in no acute distres s. No shortness of breath, cough or congestion. Maintaining good O2 saturations in the mid 90s on room air. He's been afebrile. Hemodynamically stable. Pathology results are still pending. Blood cultures reveal no growth. Wound culture no growth. White count 11.5. Hemoglobin 11.5. Creatinine 0.48. AST 362. ALT 287. Objective - Vital Signs Vital signs: Vital Signs Temp 98 F 11/15/19 04:50 Pulse 91 11/15/19 04:50 Resp 17 11/15/19 04:50 BP 143/81 11/15/19 04:50 Pulse Ox 95 11/15/19 04:50 Intake & Output 11/14/19 11/15/19 11/15/19 18:59 06:59 18:59 Intake Total 1440 Output Total 300 500 Balance -300 940 Weight 52.163 kg Intake: Intake, IV Titration 240 Amount Sodium Chloride 0.9% 1, 240 000 ml @ 20 mls/hr IV . Q24H [facility] Rx#:[id number] Oral 1200 Output: Urine 300 500 Other: Voiding Method Urinal Urinal Urinal # Voids 2 - Exam GENERAL EXAM: Alert, cachectic 59-year-old male patient, slightly jaundice, on room air, comfortable in no apparent distress. HEAD: Normocephalic/atraumatic. EYES: Normal reaction of pupils, equal size. Conjunctiva pink, sclera white. NOSE: Clear with pink turbinates. THROAT: No erythema or exudates. NECK: No masses, no JVD, no thyroid enlargement, no adenopathy. CHEST: No chest wall deformity. Symmetrical expansion. LUNGS: Equal air entry with diffuse rhonchi CVS: Regular rate and rhythm, normal S1 and S2, no gallops, no murmurs, no rubs ABDOMEN: Soft, nontender. No hepatosplenomegaly, normal bowel sounds, no guarding or rigidity. EXTREMITIES: No clubbing, no edema, no cyanosis, 2+ pulses and upper and lower extremities. MUSCULOSKELETAL: Muscle strength and tone normal. SPINE: No scoliosis or deformity SKIN: No rashes CENTRAL NERVOUS SYSTEM: No focal deficits, tone is normal in all 4 extremities. PSYCHIATRIC: Alert and oriented -3. Appropriate affect. Intact judgment and insight. - Labs CBC & Chem 7: 11/15/19 06:14 11/15/19 06:14 Labs: Abnormal Lab Results - Last 24 Hours (Table) 11/14/19 11/14/19 11/15/19 Range/Units 11:35 20:41 06:14 WBC 11.5 H (3.8-10.6) k/uL RBC 3.65 L (4.30-5.90) m/uL Hgb 11.5 L (13.0-17.5) gm/dL Hct 36.7 L (39.0-53.0) % MCV 100.5 H (80.0-100.0) fL Neutrophils # 10.6 H (1.3-7.7) k/uL Lymphocytes # 0.5 L (1.0-4.8) k/uL Sodium (137-145) mmol/L Creatinine (0.66-1.25) mg/dL Glucose (74-99) mg/dL POC Glucose (mg/dL) 124 H 178 H (75-99) mg/dL Total Bilirubin (0.2-1.3) mg/dL AST (17-59) U/L ALT (4-49) U/L Alkaline Phosphatase (38-126) U/L Total Protein (6.3-8.2) g/dL Albumin (3.5-5.0) g/dL 11/15/19 11/15/19 Range/Units 06:14 06:59 WBC (3.8-10.6) k/uL RBC (4.30-5.90) m/uL Hgb (13.0-17.5) gm/dL Hct (39.0-53.0) % MCV (80.0-100.0) fL Neutrophils # (1.3-7.7) k/uL Lymphocytes # (1.0-4.8) k/uL Sodium 134 L (137-145) mmol/L Creatinine 0.48 L (0.66-1.25) mg/dL Glucose 129 H (74-99) mg/dL POC Glucose (mg/dL) 140 H (75-99) mg/dL Total Bilirubin 10.6 H (0.2-1.3) mg/dL AST 362 H (17-59) U/L ALT 287 H (4-49) U/L Alkaline Phosphatase 1479 H (38-126) U/L Total Protein 5.5 L (6.3-8.2) g/dL Albumin 2.7 L (3.5-5.0) g/dL Microbiology - Last 24 Hours (Table) 11/08/19 14:55 Blood Culture - Final Blood No Growth after 144 hours Assessment and Plan Assessment: 1 Generalized weakness secondary to suspected pancreatic adenocarcinoma with metastasis to the lung, bone. CA 199 antigen 130. Status post ERCP with stent placements and biopsies taken. Pathology still pending. 2 Mediastinal and right hilar lymphadenopathy measuring up to 2.9 cm suspicious for metastatic disease. There is also a patchy density in the right lung cannot rule out developing pneumonia 3 Permeative distraction of the left acetabulum and left moe along with the superior right acetabulum suspicious for osseous metastatic disease. Pathologic compression fractures of L3 and L4 with moderate spinal canal stenosis 4 Hydropic gallbladder with mild wall thickening suspect secondary to biliary obstruction versus acute cholecystitis 5 Chronic and ongoing tobacco dependence 6 Chronic heavy alcohol use, states quit 3 months ago 7 Decubitus ulcer in the coccyx 8 Protein calorie malnutrition, BMI 16.5 9 Elevated LFTs. 10 Poor overall functional performance based on the above-mentioned multiple comorbidities Plan: The patient was seen and evaluated by Dr. Garrett Most likely metastatic pancreatic cancer ERCP and biopsies performed. Pathology pending. He is again educated regarding the importance of complete smoking cessation, alcohol cessation Overall prognosis remains quite guarded. I, the cosigning physician, performed a history & physical examination of the patient. Lungs sounds with few scattered rhonchi, end expiratory wheeze, diminished. Maintaining good O2 saturations in the 90s on room air. I discussed the assessment and plan of care with my nurse practitioner, Valerie Tucker. I attest to the above note as dictated by her.
[2019-11-15] MEDS: guaiFENesin 600 MG TABLET.ER PO SCH ×2 (13:04→20:04)
--- NOTE | 2019-11-15 13:46 | P.PN ---
Subjective Progress Note Date: 11/15/19 Principal diagnosis: Pancreatic mass, poorly differentiated neuroendocrine tumor, elevated bilirubin Patient is seen lying in bed still reporting jaundice and dark colored urine. Tolerating diet. No nausea or vomiting. Objective - Vital Signs Vital signs: Vital Signs Temp 98 F 11/15/19 11:42 Pulse 82 11/15/19 11:42 Resp 20 11/15/19 11:42 BP 143/82 11/15/19 11:42 Pulse Ox 94 L 11/15/19 11:42 Intake & Output 11/14/19 11/15/19 11/15/19 18:59 06:59 18:59 Intake Total 1440 Output Total 300 500 Balance -300 940 Weight 52.163 kg Intake: Intake, IV Titration 240 Amount Sodium Chloride 0.9% 1, 240 000 ml @ 20 mls/hr IV . Q24H [facility] Rx#:[id number] Oral 1200 Output: Urine 300 500 Other: Voiding Method Urinal Urinal Urinal # Voids 2 - Exam On physical examination, patient appears comfortable in no apparent distress. HEAD: Normocephalic, atraumatic. EYES: Scleral icterus. No conjunctival injection. MOUTH: No lesions, tongue midline. NECK: Trachea midline, no gross abnormalities. ABDOMEN: Soft, thin and nontender. Bowel sounds are positive. No organomegaly. No guarding or rigidity. EXTREMITIES: No pedal edema. SKIN: No rashes, jaundice. NEUROLOGIC: Alert and oriented x3. No focal deficits. - Labs CBC & Chem 7: 11/15/19 06:14 11/15/19 06:14 Labs: Abnormal Lab Results - Last 24 Hours (Table) 11/14/19 11/15/19 11/15/19 Range/Units 20:41 06:14 06:14 WBC 11.5 H (3.8-10.6) k/uL RBC 3.65 L (4.30-5.90) m/uL Hgb 11.5 L (13.0-17.5) gm/dL Hct 36.7 L (39.0-53.0) % MCV 100.5 H (80.0-100.0) fL Neutrophils # 10.6 H (1.3-7.7) k/uL Lymphocytes # 0.5 L (1.0-4.8) k/uL Sodium 134 L (137-145) mmol/L Creatinine 0.48 L (0.66-1.25) mg/dL Glucose 129 H (74-99) mg/dL POC Glucose (mg/dL) 178 H (75-99) mg/dL Total Bilirubin 10.6 H (0.2-1.3) mg/dL AST 362 H (17-59) U/L ALT 287 H (4-49) U/L Alkaline Phosphatase 1479 H (38-126) U/L Total Protein 5.5 L (6.3-8.2) g/dL Albumin 2.7 L (3.5-5.0) g/dL 11/15/19 Range/Units 06:59 WBC (3.8-10.6) k/uL RBC (4.30-5.90) m/uL Hgb (13.0-17.5) gm/dL Hct (39.0-53.0) % MCV (80.0-100.0) fL Neutrophils # (1.3-7.7) k/uL Lymphocytes # (1.0-4.8) k/uL Sodium (137-145) mmol/L Creatinine (0.66-1.25) mg/dL Glucose (74-99) mg/dL POC Glucose (mg/dL) 140 H (75-99) mg/dL Total Bilirubin (0.2-1.3) mg/dL AST (17-59) U/L ALT (4-49) U/L Alkaline Phosphatase (38-126) U/L Total Protein (6.3-8.2) g/dL Albumin (3.5-5.0) g/dL Microbiology - Last 24 Hours (Table) 11/08/19 14:55 Blood Culture - Final Blood No Growth after 144 hours Assessment and Plan (1) Biliary stent obstruction Narrative/Plan: 51-year-old male who presented to the hospital with jaundice and dark colored urine found to have a pancreatic mass with endoscopic intervention with ERCP revealing a distal common bile duct stricture with proximal biliary dilation status post CBD stent placement. Liver enzymes have continued to trend upward likely related to stent occlusion. Cytology from CBD brushing and biopsies of the stomach and nodules which were seen consistent with poorly differentiated neuroendocrine tumor. Current Visit: Yes Status: Acute Priority: High Code(s): T85.590A - [facility] COMPL OF BILE DUCT PROSTHESIS, INITIAL ENCOUNTER SNOMED Code(s): 843900792 (2) Hyperbilirubinemia Current Visit: Yes Status: Acute Code(s): E80.6 - OTHER DISORDERS OF BILIRUBIN METABOLISM SNOMED Code(s): 27533666 (3) Pain due to malignant neoplasm metastatic to bone Current Visit: Yes Status: Acute Priority: High Code(s): G89.3 - NEOPLASM RELATED PAIN (ACUTE) (CHRONIC); C79.51 - SECONDARY MALIGNANT NEOPLASM OF BONE SNOMED Code(s): 212144462 (4) Pancreatic mass Current Visit: Yes Status: Acute Priority: High Code(s): K86.89 - OTHER SPECIFIED DISEASES OF PANCREAS SNOMED Code(s): 105652829 Plan: Supportive care Okay for diet Continue to monitor CBC, CMP Appreciate recommendations from radiation oncology and medical oncology We'll plan for repeat ERCP tomorrow, pending results patient may require IR evaluation for PTC moving forward Thank you for allowing us to participate in the care of the patient
--- NOTE | 2019-11-15 15:54 | P.PN ---
Subjective Progress Note Date: 11/15/19 Principal diagnosis: This is a 59-year-old male who was recently admitted with significant weakness and diminished oral intake and is being closely monitored. Patient is being seen and evaluated by GI and underwent ERCP today showing a tight distal common bile duct stricture measuring 2 cm in length with proximal biliary dilation status post CBD brush cytology along with a CBD stent placement, irregular stricture involving the entire pancreatic duct, and multiple raised lesions measuring 1-1.5 cm in size with central ulceration noted in the fundus of the stomach and biopsies were obtained. Currently awaiting biopsies as they are pending. Patient was initiated on clear liquid diet and tolerating although patient states he would like and advance in his diet. Patient underwent nuclear bone scan showing a focus of radiotracer accumulation in the posterior medial right 11th or 12th rib that is nonspecific and may likely be due to trauma with solitary metastasis less likely, photopenic defects within the proximal right femur, degenerative type joint changes especially noted in bilateral knees and ankles, consider possible hydronephrosis and hydroureter of the left renal collecting system with additional workup considered. Multiple medical consultations following. Patient is having a lot of sacral discomfort and is currently off loading of the area. Infectious disease is following. Patient also underwent a CT of the brain showing no acute intracranial hemorrhage or midline shift with mild to moderate diffuse cerebral atrophy and mild chronic small vessel ischemic changes noted with suspected metastatic osseous lesion to the left mastoid region inferior aspect. Multiple medical consultations following an currently awaiting an oncology consult. Prognosis is extremely guarded. 11/11/2019 Patient is seen and evaluated in follow-up today and continues to have weakness with diminished oral intake and is being closely monitored. Multiple medical consultations following. Patient continues to have some mild abdominal discomfort although states somewhat improved. Patient is urinating and having bowel movements. Patient states his bowel movements have been loose and somewhat semi-formed at times. No bleeding noted. Patient remains on clear li quids at this time and asking for an advancement in diet. No reports of nausea or vomiting noted. Patient was seen and evaluated by oncology and currently waiting biopsy results from the ERCP performed yesterday. Patient initially opened discussion of further treatment and then reports wanting no further treatment done. Social work consulted for possible power of compliance attorney. Current patient's status was discussed in detail with sister and she was here today discussing with her brother about possible discharge plans as he is unable to take care of himself at home and they are unable to care for him given his multiple complex medical issues. Case management and social work are following for possible rehab placement upon discharge. Patient remains on IV antibiotics in the form of Zithromax and ceftriaxone and infectious disease is following. Will continue to monitor closely. 11/12/2019 Patient is seen in follow-up today currently awaiting pathology report from recent ERCP. Multiple medical consults following. Oncology following as well and awaiting pathology report to determine next steps in treatment plan. Patient continues to refuse treatments at this time and would like to go home. Discussed with the patient at length about rehab for PT/OT therapy for an increase in strength and mobility to be able to return home. Patient continues to be weak. Family states he is unable to care for himself and lives alone with family close by although they are unable to care for him. 11/15/2019 Patient is seen and evaluated in follow-up today continues to wait for pathology report to determine treatment with oncology. Multiple medical consultations following. Liver functions along with Bilirubin continues to be elevated and is currently 10.6. Awaiting to undergo ERCP again tomorrow. Discussed with oncology in detail today as patient continues to be back and forth about receiving cancer treatments. Patient is currently agreeable and awaiting report to determine treatment plan. Case management is following working on ECF placement as the family would like him to go to rehab for increase in strength and mobility. Patient was informed along with family member that he will not be receiving active chemotherapy treatments until after rehabilitation and patient is home. Family verbalized understanding. Currently tolerating diet. Patient states he continues to have dark urine and having extreme weakness and inability to get up without assistance. PT/OT following. Will continue to monitor closely. Review of systems: Constitutional: No reports of fevers or fatigue Cardiovascular: No reports of chest pain or palpitations Respiratory: No reports of shortness of breath or cough GI: No reports of nausea, vomiting, or diarrhea : No reports of dysuria or retention Neurovascular: Reports generalized weakness, no reports of numbness Active Medications Hydrocodone Bitart/Acetaminophen (Mars 5-325) 1 each PO Q6HR PRN PRN Reason: Pain Last Admin: 11/15/19 07:55 Dose: 1 each Documented by: Albuterol Sulfate (Ventolin Hfa Inhaler) 2 puff INHALATION RT-QID [place] Last Admin: 11/15/19 11:34 Dose: 2 puff Documented by: Azithromycin (Zithromax) 500 mg PO DAILY [facility] Last Admin: 11/15/19 07:55 Dose: 500 mg Documented by: Budesonide/Formoterol Fumarate (Symbicort 160-4.5 Mcg Inhaler) 2 puff INHALATION RT-BID [facility] Last Admin: 11/15/19 08:27 Dose: 2 puff Documented by: Folic Acid (Folic Acid) 1 mg PO DAILY@1200 [facility] Last Admin: 11/15/19 07:55 Dose: 1 mg Documented by: Guaifenesin (Mucinex) 600 mg PO Q12HR [facility] Last Admin: 11/15/19 13:04 Dose: 600 mg Documented by: Hydromorphone HCl (Dilaudid) 0.5 mg IVP Q6HR PRN PRN Reason: Severe Pain Last Admin: 11/14/19 02:09 Dose: 0.5 mg Documented by: Sodium Chloride (Saline 0.9%) 1,000 mls @ 20 mls/hr IV .Q24H [facility] Last Admin: 11/15/19 07:59 Dose: 20 mls/hr Documented by: Ceftriaxone Sodium 1 gm/ (Sodium Chloride) 50 mls @ 100 mls/hr IVPB Q24HR [facility] Last Admin: 11/15/19 07:53 Dose: 100 mls/hr Documented by: Lactated Ringer's (Lactated Ringers) 1,000 mls @ 20 mls/hr IV .Q24H [facility] Last Admin: 11/15/19 07:58 Dose: Not Given Documented by: Ampicillin Sodium/Sulbactam (Sodium 1.5 gm/ Sodium Chloride) 50 mls @ 100 mls/hr IVPB ONCE ONE Stop: 11/16/19 13:29 Indomethacin (Indocin) 100 mg RECTAL ONCE ONE Stop: 11/16/19 13:01 Lorazepam (Ativan) 1 mg IV Q4HR PRN PRN Reason: Anxiety Multivitamins (Theragran) 1 each PO DAILY@1200 [facility] Last Admin: 11/15/19 07:54 Dose: 1 each Documented by: Naloxone HCl (Narcan) 0.2 mg IV Q2M PRN PRN Reason: Opioid Reversal Pantoprazole Sodium (Protonix) 40 mg PO AC-BRKFST [facility] Last Admin: 11/15/19 07:55 Dose: 40 mg Documented by: Prednisone () 30 mg PO DAILY [facility] Last Admin: 11/15/19 07:55 Dose: 30 mg Documented by: Thiamine HCl (Vitamin B-1) 100 mg PO DAILY@1200 [facility] Last Admin: 11/15/19 07:54 Dose: 100 mg Documented by: Objective - Vital Signs Vital signs: Vital Signs Temp 98 F 11/15/19 11:42 Pulse 82 11/15/19 11:42 Resp 20 11/15/19 11:42 BP 143/82 11/15/19 11:42 Pulse Ox 94 L 11/15/19 11:42 Intake & Output 11/14/19 11/15/19 11/15/19 18:59 06:59 18:59 Intake Total 1440 Output Total 300 500 Balance -300 940 Weight 52.163 kg Intake: Intake, IV Titration 240 Amount Sodium Chloride 0.9% 1, 240 000 ml @ 20 mls/hr IV . Q24H [facility] Rx#:[id number] Oral 1200 Output: Urine 300 500 Other: Voiding Method Urinal Urinal Urinal # Voids 2 2 - Exam GENERAL: Patient is awake and alert and oriented 3. Temp is 98.0F, pulse is 82, respirations are 20, blood pressure is 143/82, oxygen saturation is 94% on room air. HEENT: Pupils are round and equally reacting to light. EOMI. No scleral icterus. No conjunctival pallor. Normocephalic, atraumatic. No pharyngeal erythema. No thyromegaly. CARDIOVASCULAR: S1 and S2 are muffled. No murmurs, rubs, or gallops. PULMONARY: Diminished breath sounds at the bases with a few scattered rhonchi noted. ABDOMEN: Soft, scaphoid, nondistended, normoactive bowel sounds. No palpable organomegaly. MUSCULOSKELETAL: No joint swelling or deformity. EXTREMITIES: No cyanosis, clubbing, or mild bilateral lower extremity edema noted NEUROLOGICAL: Moving all 4 limbs, diffusely weak, wasted and emaciated SKIN: No rashes. Sacral wound decubitus stage II ulcer noted with medical honey applied - Labs CBC & Chem 7: 11/15/19 06:14 11/15/19 06:14 Labs: Abnormal Lab Results - Last 24 Hours (Table) 0511/15/19 11/15/19 Range/Units 20:41 06:14 06:14 WBC 11.5 H (3.8-10.6) k/uL RBC 3.65 L (4.30-5.90) m/uL Hgb 11.5 L (13.0-17.5) gm/dL Hct 36.7 L (39.0-53.0) % MCV 100.5 H (80.0-100.0) fL Neutrophils # 10.6 H (1.3-7.7) k/uL Lymphocytes # 0.5 L (1.0-4.8) k/uL Sodium 134 L (137-145) mmol/L Creatinine 0.48 L (0.66-1.25) mg/dL Glucose 129 H (74-99) mg/dL POC Glucose (mg/dL) 178 H (75-99) mg/dL Total Bilirubin 10.6 H (0.2-1.3) mg/dL AST 362 H (17-59) U/L ALT 287 H (4-49) U/L Alkaline Phosphatase 1479 H (38-126) U/L Total Protein 5.5 L (6.3-8.2) g/dL Albumin 2.7 L (3.5-5.0) g/dL 11/15/19 Range/Units 06:59 WBC (3.8-10.6) k/uL RBC (4.30-5.90) m/uL Hgb (13.0-17.5) gm/dL Hct (39.0-53.0) % MCV (80.0-100.0) fL Neutrophils # (1.3-7.7) k/uL Lymphocytes # (1.0-4.8) k/uL Sodium (137-145) mmol/L Creatinine (0.66-1.25) mg/dL Glucose (74-99) mg/dL POC Glucose (mg/dL) 140 H (75-99) mg/dL Total Bilirubin (0.2-1.3) mg/dL AST (17-59) U/L ALT (4-49) U/L Alkaline Phosphatase (38-126) U/L Total Protein (6.3-8.2) g/dL Albumin (3.5-5.0) g/dL Microbiology - Last 24 Hours (Table) 11/08/19 14:55 Blood Culture - Final Blood No Growth after 144 hours Assessment and Plan Assessment: Obstructive jaundice with intra-and extrahepatic biliary dilatation, possibly secondary to pancreatic neoplasm, head of the pancreas Status post ERCP showing tight distal common bile duct stricture measuring 2 cm in length with proximal biliary dilation status post CBD stent placement with multiple raised lesions measuring 1-1.5 cm in size with central ulceration noted in the fundus of the stomach status post biopsies Stage II sacral decubitus ulcer Covid 19 ruled out Chronic obstructive pulmonary disease, acute exacerbation, with acute purulent tracheobronchitis with possible sepsis, present on admission Hyponatremia Severe emaciation Possible metastatic malignancy with multiple lesions in the bones and also lymphadenopathy in the chest Anemia of chronic disease History of ethanol Hypertension History of anxiety History of ongoing continued nicotine dependence Severe protein calorie malnutrition with a body mass index of 16.5 History of recent weight loss Gait dysfunction Full code Recommendations and discussion: Recommend continue current medications, management, and symptomatic treatment. Multiple medical consultations following. Case management and social work following to assess and aid in possible discharge planning needs. Family recommending rehab for continued PT/OT therapy. Discussed with the patient at length about the possibility of ECF placement once stabilized and discharged for continued PT/OT therapy for strength and mobility. GI also following and recommending repeat ERCP tomorrow. Due to multiple complex medical issues, prog nosis is extremely guarded. Further recommendations to follow.
--- NOTE | 2019-11-15 19:32 | PN ---
PROGRESS NOTE DATE OF SERVICE: 11/15/2019 REASON FOR FOLLOWUP: Sacral pressure ulcer and a question of pneumonia. INTERVAL HISTORY: The patient is currently afebrile. The patient has been breathing comfortably. Denies having any chest pain or any cough. No nausea, no vomiting. No abdominal pain or pain to the sacral wound area. PHYSICAL EXAMINATION: Blood pressure 143/82 with a pulse of 82, temperature 98. He is 94% on room air. General description is a middle-aged male lying in bed in no distress. RESPIRATORY SYSTEM: Unlabored breathing. Clear to auscultation anteriorly. HEART: S1, S2. Regular rate and rhythm. ABDOMEN: Soft. No tenderness. LABS: Hemoglobin 11.5, white count 11.5, BUN of 11, creatinine 0.48. Wound culture has been negative. DIAGNOSTIC IMPRESSION AND PLAN: 1. Patient with stage III sacral pressure ulcer. Local care to continue with Medihoney followed by moist dressing. 2. Abnormal x-ray with question of pneumonia, on empiric antibiotic. Continue with supportive care. MMODL / IJN: [id number] /
[2019-11-16] MEDS: HYDROcodone/APAP 5-325MG 1 EACH TAB PO PRN (01:09)
[2019-11-16 06:14] LABS: Basophils % (A) 0 %; Eosinophils # (A) 0.1 k/uL (0-0.7); Eosinophils % (A) 1 %; HCT 36.3 % (39.0-53.0); HGB 11.5 gm/dL (13.0-17.5); Lymphocytes # (A) 0.6 k/uL (1.0-4.8); Lymphocytes % (A) 5 %; MCHC 31.8 g/dL (31.0-37.0); MCV 100.6 fL (80.0-100.0); Macrocytosis Slight; Mean Platelet Volume 8.1; Monocytes # (A) 0.3 k/uL (0-1.0); Monocytes % (A) 2 %; Neutrophils # (A) 11.5 k/uL (1.3-7.7); Neutrophils % (A) 92 %; Platelet Count 330 k/uL (150-450); RBC 3.61 m/uL (4.30-5.90); RDW 13.9 % (11.5-15.5); WBC 12.4 k/uL (3.8-10.6)
[2019-11-16 06:26] LABS: ALT 336 U/L (4-49); AST 349 U/L (17-59); African American GFR (CKD) >90 (>60 ml/min/1.73 sqM); Albumin 2.6 g/dL (3.5-5.0); Anion Gap 6 mmol/L; Blood Urea Nitrogen 12 mg/dL (9-20); Calcium 8.4 mg/dL (8.4-10.2); Carbon Dioxide 26 mmol/L (22-30); Chloride 101 mmol/L (98-107); Glucose 109 mg/dL (74-99); Non-African American GFR(CKD) >90 (>60 ml/min/1.73 sqM); Potassium 3.9 mmol/L (3.5-5.1); Sodium 133 mmol/L (137-145); Total Protein 5.4 g/dL (6.3-8.2)
[2019-11-16 06:35] LABS: Alkaline Phosphatase 1805 U/L (38-126)
[2019-11-16] MEDS: ALBUTEROL HFA INHALER INHALATION SCH ×4 (07:13→19:37)
[2019-11-16] MEDS: SYMBICORT 160-4.5 MCG INHALER INHALATION SCH ×2 (07:13→19:37)
[2019-11-16] MEDS: PANTOPRAZOLE 40 MG TABLET PO SCH (09:29)
[2019-11-16] MEDS: guaiFENesin 600 MG TABLET.ER PO SCH ×2 (11:38→20:12)
--- NOTE | 2019-11-16 11:47 | P.PN ---
Subjective Progress Note Date: 11/16/19 Principal diagnosis: Generalized weakness This is a 59-year-old gentleman who follows with Dr. Mendez as his primary care provider. He has a history of hypertension, anxiety, chronic tobacco dependence, heavy alcohol abuse. He stated he did quit drinking about 3 months ago. He was brought in by EMS to the emergency room yesterday with generalized weakness lower extremity edema and jaundice. He had been having diarrhea and stated his bowel movements have been green. He's been short of breath and had a loose nonproductive cough for several months now. He had been seen by our group approximately a year ago for acute hypoxic respiratory failure secondary to COPD exacerbation and tracheobronchitis. Chest x-ray at that time showed no acute pulmonary process. Yesterday's chest x-ray revealed evidence of COPD with patchy peripheral right midlung density, developing pneumonia not excluded. There is also a right hilar soft tissue prominence suspicious for underlying lymphadenopathy/mass. Ultrasound of the gallbladder revealed hydropic gallbladder with hepatic dilatation and bulky heterogenous appearance of the pancreas. Unable to exclude pancreatic head mass and secondary biliary obstruction. Calcifications and sludge within the distended gallbladder. Dopplers of the lower extremities were negative for DVT. Computed tomography scan of the chest abdomen and pelvis revealed intrahepatic and extrahepatic biliary ductal dilatation. Unable to exclude a 7.0 x 5.1 x 3.2 cm pancreatic head mass/pancreatic adenocarcinoma. There is also noted mediastinal and right hilar lymphadenopathy measuring up to 2.9 cm suspicious for metastatic disease. There is also osseous metastatic disease with permeative distraction of the left acetabulum and left ischium. Permeative lucency within the superior right acetabulum. Pathologic compression fractures of L3 and L4. Moderate spinal canal stenosis. Hydropic gallbladder with mild wall thickening. Patchy density in the right lung. The patient is seen today in consultation on the regular medical floor. He is currently awake and alert in no acute distress. He is quite cachectic appearing disheveled. Maintaining O2 saturation in the 90s on room air. He's been afebrile. Hemodynamically stable. Coccyx wound culture pending. White count 7.1. Hemoglobin 11.3. MCV 101. Sodium 135. Potassium 4.2. Creatinine 0.44. AST 75. ALT 62. Alk phos 653. CA 199 antigen 130. Coronavirus by PCR not detected. He has been initiated on ceftriaxone and azithromycin along with Symbicort, IV Solu-Medrol and albuterol. On 11/11/2019 patient seen in follow-up on general oncology floor. He is status post ERCP with brush cytology, CBD stent placement and EGD with biopsy for diagnosis of jaundice and possible pancreatic mass. There was irregular stricture involving the entire pancreatic duct and the guidewire could not be passed into the pancreatic duct and cytology could not be performed. There was central ulcerations within the fundus of the stomach that were biopsied. Currently the biopsies are pending. Patient is seen resting comfortably in bed, denies any distress, room air pulse ox of 94-96%, hemodynamically stable, his been afebrile. No complaints of shortness of breath, today's lab work has been reviewed showing white blood cell count of 8.6, hemoglobin of 11.4, serum sodium is 133, the rest of electrolytes are within normal limits, BUN 16 creatinine 0.59, LFTs have increased with AST of 140, ALT of 114, and alkaline phosphatase of 1041. Patient remains on Rocephin and azithromycin. Lung sounds are positive for some scattered rhonchi, patient is on IV steroids and inhalers. The patient is seen today 11/12/2019 in follow-up on the general oncology floor. He is currently awake and alert in no acute distress. He is resting comfortably in bed. He denies any significant abdominal discomfort, nausea or vomiting. Blood culture reveals no growth. Wound culture reveals no growth. White count 8.9. Hemoglobin 11.9. Creatinine 0.58. AST 142. ALT 142. Alk phos 1020. He is maintaining O2 saturations in the 90s on room air. He's afebrile. He remains on Symbicort, albuterol, IV Solu-Medrol. Antibiotics in the form of ceftriaxone and azithromycin. He is status post ERCP with brush cytology, CBD stent placement. EGD with biopsies pending. The patient is seen today 11/13/2019 in follow-up on the regular medical floor. He is resting comfortably in bed. Awake and alert in no acute distress. He denies any shortness of breath, cough or congestion. No significant abdominal discomfort. He is maintaining good O2 saturation in the mid 90s on room air. He's afebrile. Slightly hypertensive. Blood culture reveals no growth. Wound culture reveals no growth. White count 8.9. Hemoglobin 11.9. MCV 100.5. Sodium 133. Potassium 4.4. Creatinine 0.56. AST 150. ALT 163. GI biopsy still pending. He remains on ceftriaxone and azithromycin. Continue on S ymbicort, albuterol, IV Solu-Medrol. The patient is seen today 11/15/2019 in follow-up on the regular medical floor. He is currently resting comfortably in bed. Awake and alert in no acute distres s. No shortness of breath, cough or congestion. Maintaining good O2 saturations in the mid 90s on room air. He's been afebrile. Hemodynamically stable. Pathology results are still pending. Blood cultures reveal no growth. Wound culture no growth. White count 11.5. Hemoglobin 11.5. Creatinine 0.48. AST 362. ALT 287. The patient is seen today 11/16/2019 in follow-up on the regular medical floor. He remains awake and alert in no acute distress. 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 The plan is for repeat ERCP today. Pending results may require interventional radiology evaluation for PTC. He denies any shortness of breath, cough or congestion. Maintaining O2 saturations in the 90s on room air. White count 12.5. Hemoglobin 11.5. Creatinine 0.41. AST 349. ALT 336. Alk phos 1805. Objective - Vital Signs Vital signs: Vital Signs Temp 98.3 F 11/16/19 05:00 Pulse 186 H 11/16/19 05:00 Resp 16 11/16/19 05:00 BP 124/78 11/16/19 05:00 Pulse Ox 95 11/16/19 05:00 Intake & Output 11/15/19 11/16/19 11/16/19 18:59 06:59 18:59 Intake Total 120 Output Total 100 Balance 20 Weight 52.163 kg Intake: IV 120 Sodium Chloride 0.9% 1, 120 000 ml @ 20 mls/hr IV . Q24H [facility] Rx#:[id number] Output: Urine 100 Other: Voiding Method Urinal Urinal # Voids 2 1 - Exam GENERAL EXAM: Alert, cachectic 59-year-old male patient, slightly jaundice, on room air, comfortable in no apparent distress. HEAD: Normocephalic/atraumatic. EYES: Normal reaction of pupils, equal size. Conjunctiva pink, sclera white. NOSE: Clear with pink turbinates. THROAT: No erythema or exudates. NECK: No masses, no JVD, no thyroid enlargement, no adenopathy. CHEST: No chest wall deformity. Symmetrical expansion. LUNGS: Equal air entry with few scattered rhonchi, diminished CVS: Regular rate and rhythm, normal S1 and S2, no gallops, no murmurs, no rubs ABDOMEN: Soft, nontender. No hepatosplenomegaly, normal bowel sounds, no guar ding or rigidity. EXTREMITIES: No clubbing, no edema, no cyanosis, 2+ pulses and upper and lower extremities. MUSCULOSKELETAL: Muscle strength and tone normal. SPINE: No scoliosis or deformity SKIN: No rashes CENTRAL NERVOUS SYSTEM: No focal deficits, tone is normal in all 4 extremities. PSYCHIATRIC: Alert and oriented -3. Appropriate affect. Intact judgment and insight. - Labs CBC & Chem 7: 11/16/19 05:21 11/16/19 05:21 Labs: Abnormal Lab Results - Last 24 Hours (Table) 11/16/19 11/16/19 Range/Units 05:21 05:21 WBC 12.4 H (3.8-10.6) k/uL RBC 3.61 L (4.30-5.90) m/uL Hgb 11.5 L (13.0-17.5) gm/dL Hct 36.3 L (39.0-53.0) % MCV 100.6 H (80.0-100.0) fL Neutrophils # 11.5 H (1.3-7.7) k/uL Lymphocytes # 0.6 L (1.0-4.8) k/uL Sodium 133 L (137-145) mmol/L Creatinine 0.41 L (0.66-1.25) mg/dL Glucose 109 H (74-99) mg/dL Total Bilirubin 11.0 H (0.2-1.3) mg/dL AST 349 H (17-59) U/L ALT 336 H (4-49) U/L Alkaline Phosphatase 1805 H (38-126) U/L Total Protein 5.4 L (6.3-8.2) g/dL Albumin 2.6 L (3.5-5.0) g/dL Assessment and Plan Assessment: 1 Generalized weakness secondary to suspected pancreatic adenocarcinoma with metastasis to the lung, bone. CA 199 antigen 130. Status post ERCP with stent placements and biopsies taken. Pathology reveals poorly differentiated neuroen docrine carcinoma (small cell carcinoma). Plan is for repeat ERCP today and possible need for percutaneous catheter placement. 2 Mediastinal and right hilar lymphadenopathy measuring up to 2.9 cm suspicious for metastatic disease. There is also a patchy density in the right lung cannot rule out developing pneumonia 3 Permeative distraction of the left acetabulum and left moe along with the lacey perior right acetabulum suspicious for osseous metastatic disease. Pathologic compression fractures of L3 and L4 with moderate spinal canal stenosis 4 Hydropic gallbladder with mild wall thickening suspect secondary to biliary obstruction versus acute cholecystitis 5 Chronic and ongoing tobacco dependence 6 Chronic heavy alcohol use, states quit 3 months ago 7 Decubitus ulcer in the coccyx 8 Protein calorie malnutrition, BMI 16.5 9 Elevated LFTs. 10 Poor overall functional performance based on the above-mentioned multiple comorbidities Plan: The patient was seen and evaluated by Dr. Garrett Pathology report reviewed Plan is for repeat ERCP today Currently stable from the pulmonary standpoint We will follow him on an as-needed basis I, the cosigning physician, performed a history & physical examination of the patient. Lungs sounds with few scattered rhonchi, diminished. Maintaining good O2 saturations in the 90s on room air. I discussed the assessment and plan of care with my nurse practitioner, Valerie Tucker. I attest to the above note as dictated by her.
--- NOTE | 2019-11-16 12:26 | P.PN ---
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 Objective - Vital Signs Vital signs: Vital Signs Temp 98 F 11/16/19 11:41 Pulse 87 11/16/19 11:41 Resp 20 11/16/19 11:41 BP 133/81 11/16/19 11:41 Pulse Ox 94 L 11/16/19 11:41 Intake & Output 11/15/19 11/16/19 11/16/19 18:59 06:59 18:59 Intake Total 120 Output Total 100 Balance 20 Weight 52.163 kg Intake: IV 120 Sodium Chloride 0.9% 1, 120 000 ml @ 20 mls/hr IV . Q24H [facility] Rx#:[id number] Output: Urine 100 Other: Voiding Method Urinal Urinal # Voids 2 1 - Labs CBC & Chem 7: 11/16/19 05:21 11/16/19 05:21 Labs: Abnormal Lab Results - Last 24 Hours (Table) 11/16/19 11/16/19 Range/Units 05:21 05:21 WBC 12.4 H (3.8-10.6) k/uL RBC 3.61 L (4.30-5.90) m/uL Hgb 11.5 L (13.0-17.5) gm/dL Hct 36.3 L (39.0-53.0) % MCV 100.6 H (80.0-100.0) fL Neutrophils # 11.5 H (1.3-7.7) k/uL Lymphocytes # 0.6 L (1.0-4.8) k/uL Sodium 133 L (137-145) mmol/L Creatinine 0.41 L (0.66-1.25) mg/dL Glucose 109 H (74-99) mg/dL Total Bilirubin 11.0 H (0.2-1.3) mg/dL AST 349 H (17-59) U/L ALT 336 H (4-49) U/L Alkaline Phosphatase 1805 H (38-126) U/L Total Protein 5.4 L (6.3-8.2) g/dL Albumin 2.6 L (3.5-5.0) g/dL Assessment and Plan (1) 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 Standard of care is systemic treatment with [employer] [place] and [employer]-16, 3 days every 21 days. Not certain if this regimen is going to be plausible for several reasons. 1st, liver obstruction needs to be corrected. 2nd pt needs rehab for severe weakness. He would not be considered for treatment unless he was able to get strong enough to leave rehab. 3rd, poorly differentiated small cell is typically and aggressive malignancy and without active treatment it will progress and hinder pt progress in rehab. Without active treatment prognosis is 3-4 mo in the best case scenario. Will discuss all the above with pt sister. Update medical record BECK Current Visit: Yes Status: Acute Priority: High Code(s): C7A.8 - OTHER MALIGNANT NEUROENDOCRINE TUMORS; C7B.8 - OTHER SECONDARY NEUROENDOCRINE TUMORS SNOMED Code(s): 206308786 (2) Pancreatic mass Current Visit: Yes Status: Acute Priority: High Code(s): K86.89 - OTHER SPECIFIED DISEASES OF PANCREAS SNOMED Code(s): 840118981 (3) Biliary stent obstruction Narrative/Plan: Gastroenterology following patient. Pt has had stent placed. Due to his significant increase in liver enzymes considering possible stent exchange versus percutaneous biliary drain. Pending procedure Current Visit: Yes Status: Acute Priority: High Code(s): T85.590A - [facility] COMPL OF BILE DUCT PROSTHESIS, INITIAL ENCOUNTER SNOMED Code(s): 636872751 (4) Bone metastasis Current Visit: Yes Status: Acute Priority: High Code(s): C79.51 - SECONDARY MALIGNANT NEOPLASM OF BONE SNOMED Code(s): 49163344 (5) Pain due to malignant neoplasm metastatic to bone Narrative/Plan: Patient has been seen by Radiation Oncology, discussed case with Doctor today. Plan is to do a dose of palliative radiation to iliac/acetabular metastasis for pain control and reduce fracture risk. Aredia x 1 dose ordered Current Visit: Yes Status: Acute Priority: High Code(s): G89.3 - NEOPLASM RELATED PAIN (ACUTE) (CHRONIC); C79.51 - SECONDARY MALIGNANT NEOPLASM OF BONE SNOMED Code(s): 969734563 Plan: Path + for poorly differentiated neuroendocrine small cell (primary gastric vs pancreatic tumor invading gastric tissue) Treatment options limited with small cell, best response is typically 6-10 months. Second line does not have significant duration of response. Pt PS and overall compromised health need to be accounted for. Pt states he wants his sister to make all decisions. I Will call her with this info. I do know that she was interested in ECF/rehab placement for certain. Doctor attests: I performed a history and physical examination of this patient, developed impression and plan of care, discussed with dictator. I agree with dictators note, documented as a scribe.
[2019-11-16] MEDS ORDERED: IV FLUID CONTINUATION 1,000 ML IV ONE (12:58)
[2019-11-16] MEDS ORDERED: AMPICILLIN-SULBACTAM 1.5 GM in SODIUM CHLORIDE 0.9% 50 ML IVPB ONE (13:00)
[2019-11-16] MEDS ORDERED: INDOMETHACIN 50MG SUPPOSITORY RECTAL ONE (13:00)
[2019-11-16] MEDS ORDERED: SODIUM CHLORIDE 0.9% 250 ML with PAMIDRONATE 90 MG IV ONE ×2 (13:00)
[2019-11-16] MEDS ORDERED: SUCCINYLCHOLINE CHLORIDE 100 MG/5 ML SYR IV ONE (13:25)
[2019-11-16] MEDS ORDERED: PROPOFOL 10 MG/ML 20 ML VIAL IV ONE (13:25)
[2019-11-16] MEDS ORDERED: PHENYLEPHRINE-0.9% NACL SYG 1 MG/10 ML SYRINGE ONE (13:25)
[2019-11-16] MEDS ORDERED: IOPAMIDOL-300 50ML BTL MISCELLANE ONE (14:40)
--- NOTE | 2019-11-16 14:53 | P.PCN ---
Date of Procedure: 11/16/19 Description of Procedure: Brief history: 51-year-old male who presented to the hospital with jaundice and dark colored urine found to have a pancreatic mass with endoscopic intervention with ERCP revealing a distal common bile duct stricture with proximal biliary dilation status post CBD stent placement. Liver enzymes have continued to trend upward likely related to stent occlusion. Cytology from CBD brushing and biopsies of the stomach and nodules which were seen consistent with poorly differentiated neuroendocrine tumor. Procedure performed: ERCP with biliary stent removal, cholangiogram and biliary stent placement Preoperative diagnoses: IV sedation per anesthesia: Estimated blood loss: Minimal. Procedure: After informed consent was obtained from the patient and after the risks benefits and complications including bleeding perforation and pancreatitis explained in detail the patient was brought into the endoscopy unit. The patient was placed in prone position and IV conscious sedation was administered by anesthesia under continuous monitoring. The Olympus side-viewing duodenoscope was then inserted into the mouth and esophagus intubated without any difficulty. The scope was gradually advanced into the stomach and duodenum. The major papilla was identified without any difficulty. A stent was noted to be protruding from the papilla without any bile flow seen. A snare was then used to remove the stent through the side-viewing duodenal scope. A sphincterotome was then used to cannulate the bile duct, with a wire passed through the common bile duct and into the common hepatic duct. Cholangiogram was performed with dye injected and significant for a distal CBD stricture with dilation of the proximal bile duct. The sphincter tone was then exchanged over a wire for a double phalange biliary stent measuring 10 cm x 7-Tajik. This was deployed into the common bile duct with good bile flow noted. Duodenum the scope was then withdrawn into the stomach where numerous ulcerations which previously were positive for metastatic cancer were seen. Air was suctioned and the procedure was concluded. The patient tolerated the procedure well. Impression: Biliary stent removal with snare Cholangiogram again revealed a distal CBD stricture with proximal dilation of the duct, placement of a plastic double phalange 10 cm x 7-Tajik stent with good bile flow noted Recommendations: The findings of this examination were discussed with the . Okay for diet. Continue monitor CMP and liver enzymes. Indocin given to the patient as well as antibiotics. Radiation oncology and medical oncology following the patient for further treatment plan. Can consider referral to tertiary center for metal stent placement or PTC with interventional radiology if further occlusion occurs.
--- NOTE | 2019-11-16 15:08 | FL ---
EXAMINATION TYPE: FL ERCP DATE OF EXAM: 11/16/2019 CLINICAL HISTORY: Biliary stent. TECHNIQUE: Fluoroscopy. COMPARISON: None. FINDINGS: Fluoroscopic guidance was provided during biliary stent removal procedure performed by Dr. Medina. A total of 0.17 minutes of fluoroscopic time was utilized during the procedure and 6 spot i mages are acquired. Please refer to procedure note for further details as I was not present nor perfo rmed procedure. IMPRESSION: As Above.
--- NOTE | 2019-11-16 15:11 | P.PN ---
Subjective Progress Note Date: 11/16/19 Principal diagnosis: This is a 59-year-old male who was recently admitted with significant weakness and diminished oral intake and is being closely monitored. Patient is being seen and evaluated by GI and underwent ERCP today showing a tight distal common bile duct stricture measuring 2 cm in length with proximal biliary dilation status post CBD brush cytology along with a CBD stent placement, irregular stricture involving the entire pancreatic duct, and multiple raised lesions measuring 1-1.5 cm in size with central ulceration noted in the fundus of the stomach and biopsies were obtained. Currently awaiting biopsies as they are pending. Patient was initiated on clear liquid diet and tolerating although patient states he would like and advance in his diet. Patient underwent nuclear bone scan showing a focus of radiotracer accumulation in the posterior medial right 11th or 12th rib that is nonspecific and may likely be due to trauma with solitary metastasis less likely, photopenic defects within the proximal right femur, degenerative type joint changes especially noted in bilateral knees and ankles, consider possible hydronephrosis and hydroureter of the left renal collecting system with additional workup considered. Multiple medical consultations following. Patient is having a lot of sacral discomfort and is currently off loading of the area. Infectious disease is following. Patient also underwent a CT of the brain showing no acute intracranial hemorrhage or midline shift with mild to moderate diffuse cerebral atrophy and mild chronic small vessel ischemic changes noted with suspected metastatic osseous lesion to the left mastoid region inferior aspect. Multiple medical consultations following an currently awaiting an oncology consult. Prognosis is extremely guarded. 11/11/2019 Patient is seen and evaluated in follow-up today and continues to have weakness with diminished oral intake and is being closely monitored. Multiple medical consultations following. Patient continues to have some mild abdominal discomfort although states somewhat improved. Patient is urinating and having bowel movements. Patient states his bowel movements have been loose and somewhat semi-formed at times. No bleeding noted. Patient remains on clear li quids at this time and asking for an advancement in diet. No reports of nausea or vomiting noted. Patient was seen and evaluated by oncology and currently waiting biopsy results from the ERCP performed yesterday. Patient initially opened discussion of further treatment and then reports wanting no further treatment done. Social work consulted for possible power of insurance attorney. Current patient's status was discussed in detail with sister and she was here today discussing with her brother about possible discharge plans as he is unable to take care of himself at home and they are unable to care for him given his multiple complex medical issues. Case management and social work are following for possible rehab placement upon discharge. Patient remains on IV antibiotics in the form of Zithromax and ceftriaxone and infectious disease is following. Will continue to monitor closely. 11/12/2019 Patient is seen in follow-up today currently awaiting pathology report from recent ERCP. Multiple medical consults following. Oncology following as well and awaiting pathology report to determine next steps in treatment plan. Patient continues to refuse treatments at this time and would like to go home. Discussed with the patient at length about rehab for PT/OT therapy for an increase in strength and mobility to be able to return home. Patient continues to be weak. Family states he is unable to care for himself and lives alone with family close by although they are unable to care for him. 11/15/2019 Patient is seen and evaluated in follow-up today continues to wait for pathology report to determine treatment with oncology. Multiple medical consultations following. Liver functions along with Bilirubin continues to be elevated and is currently 10.6. Awaiting to undergo ERCP again tomorrow. Discussed with oncology in detail today as patient continues to be back and forth about receiving cancer treatments. Patient is currently agreeable and awaiting report to determine treatment plan. Case management is following working on ECF placement as the family would like him to go to rehab for increase in strength and mobility. Patient was informed along with family member that he will not be receiving active chemotherapy treatments until after rehabilitation and patient is home. Family verbalized understanding. Currently tolerating diet. Patient states he continues to have dark urine and having extreme weakness and inability to get up without assistance. PT/OT following. Will continue to monitor closely. Review of systems: Constitutional: No reports of fevers or fatigue Cardiovascular: No reports of chest pain or palpitations Respiratory: No reports of shortness of breath or cough GI: No reports of nausea, vomiting, or diarrhea : No reports of dysuria or retention Neurovascular: Reports generalized weakness, no reports of numbness 11/16/2019 Patient is seen and evaluated in follow-up today awaiting to undergo ERCP with GI today for pre-existing [place] stent removal and replacement for distal CBD stricture and obstruction.. Has been nothing by mouth. Sodium is low at 133 and liver functions continue to be elevated with AST at 349 and ALT at 336 with an alkaline phosphatase at 1805. Bilirubin continues to be elevated at 11.0. Multiple medical consultations following. Radiation oncology following to determine possible further treatment plan along with oncology. Case management and social work also following and working on possible placement at an ECF for continued PT/OT therapy. Patient is unsure and has been back and forth in making decisions about receiving treatment with oncology. Objective - Vital Signs Vital signs: Vital Signs Temp 99.5 F 11/16/19 13:14 Pulse 88 11/16/19 13:14 Resp 18 11/16/19 13:14 BP 121/80 11/16/19 13:14 Pulse Ox 94 L 11/16/19 13:14 Intake & Output 11/15/19 11/16/19 11/16/19 18:59 06:59 18:59 Intake Total 120 50 Output Total 100 Balance 20 50 Weight 52.163 kg Intake: IV 120 50 Sodium Chloride 0.9% 1, 120 000 ml @ 20 mls/hr IV . Q24H [facility] Rx#:[id number] Output: Urine 100 Other: Voiding Method Urinal Urinal Urinal # Voids 2 1 - Exam GENERAL: Patient is awake and alert and oriented 3. HEENT: Pupils are round and equally reacting to light. EOMI. No scleral icterus. No conjunctival pallor. Normocephalic, atraumatic. No pharyngeal erythema. No thyromegaly. CARDIOVASCULAR: S1 and S2 are muffled. No murmurs, rubs, or gallops. PULMONARY: Diminished breath sounds at the bases with a few scattered rhonchi noted. ABDOMEN: Soft, scaphoid, nondistended, normoactive bowel sounds. No palpable organomegaly. MUSCULOSKELETAL: No joint swelling or deformity. EXTREMITIES: No cyanosis, clubbing, or mild bilateral lower extremity edema noted NEUROLOGICAL: Moving all 4 limbs, diffusely weak, wasted and emaciated SKIN: No rashes. Sacral wound decubitus stage II ulcer noted with medical honey applied - Labs CBC & Chem 7: 11/16/19 05:21 11/16/19 05:21 Labs: Abnormal Lab Results - Last 24 Hours (Table) 11/16/19 11/16/19 11/16/19 Range/Units 05:21 05: 05:21 WBC 12.4 H (3.8-10.6) k/uL RBC 3.61 L (4.30-5.90) m/uL Hgb 11.5 L (13.0-17.5) gm/dL Hct 36.3 L (39.0-53.0) % MCV 100.6 H (80.0-100.0) fL Neutrophils # 11.5 H (1.3-7.7) k/uL Lymphocytes # 0.6 L (1.0-4.8) k/uL Sodium 133 L (137-145) mmol/L Creatinine 0.41 L (0.66-1.25) mg/dL Glucose 109 H (74-99) mg/dL Osmolality 279 L (280-301) mosm/kg Total Bilirubin 11.0 H (0.2-1.3) mg/dL AST 349 H (17-59) U/L ALT 336 H (4-49) U/L Alkaline Phosphatase 1805 H (38-126) U/L Total Protein 5.4 L (6.3-8.2) g/dL Albumin 2.6 L (3.5-5.0) g/dL Assessment and Plan Assessment: Obstructive jaundice with intra-and extrahepatic biliary dilatation, possibly secondary to pancreatic neoplasm, head of the pancreas Status post ERCP showing tight distal common bile duct stricture measuring 2 cm in length with proximal biliary dilation status post CBD stent placement with multiple raised lesions measuring 1-1.5 cm in size with central ulceration noted in the fundus of the stomach status post biopsies. Biopsies showing poorly differentiated neuroendocrine carcinoma small cell carcinoma. Oncology followin g. Patient undergoing ERCP with stent removal and replacement for continued stricture and possible obstruction. GI following. Stage II sacral decubitus ulcer Covid 19 ruled out Chronic obstructive pulmonary disease, acute exacerbation, with acute purulent tracheobronchitis with possible sepsis, present on admission Hyponatremia Severe emaciation Possible metastatic malignancy with multiple lesions in the bones and also lymphadenopathy in the chest Anemia of chronic disease History of ethanol Hypertension History of anxiety History of ongoing continued nicotine dependence Severe protein calorie malnutrition with a body mass index of 16.5 History of recent weight loss Gait dysfunction Full code Recommendations and discussion: Recommend continue current medications, management, and symptomatic treatment. Multiple medical consultations following. Case management and social work following to assess and aid in possible discharge planning needs. Family recommending rehab for continued PT/OT therapy. Discussed with the patient at length about the possibility of ECF placement once stabilized and discharged for continued PT/OT therapy for strength and mobility. Due to multiple complex medical issues, prognosis is extremely guarded. Further recommendations to follow.
[2019-11-16] MEDS: predniSONE 10 MG TAB PO SCH (16:43)
[2019-11-16] MEDS: THIAMINE 100 MG TAB PO SCH (16:43)
[2019-11-16] MEDS: FOLIC ACID 1 MG TAB PO SCH (16:43)
[2019-11-16] MEDS: MULTIVITAMINS, THERA 1 EACH TAB PO SCH (16:43)
[2019-11-16] MEDS: LACTATED RINGERS 1,000 ML IV SCH (16:44)
[2019-11-16] MEDS: SODIUM CHLORIDE 0.9% 1,000 ML IV SCH (16:48)
--- NOTE | 2019-11-16 17:44 | PN ---
PROGRESS NOTE DATE OF SERVICE: 11/16/2019 REASON FOR FOLLOWUP: Sacral pressure ulcer. INTERVAL HISTORY: The patient is currently afebrile, has been breathing comfortably. No chest pain or any cough. No abdominal pain or diarrhea or pain to the sacral wound area. PHYSICAL EXAMINATION: Blood pressure is 130/77, pulse of 78, temperature is 97. He is 97% on room air. General description is a middle-aged male lying in bed in no distress. Respiratory system: Unlabored breathing, clear to auscultation anteriorly. Heart S1, S2. Regular rate and rhythm. Abdomen soft, no tenderness. LABS: Hemoglobin 11.5, white count 12.4, BUN of 20, creatinine 0.41, and worsening of his liver enzymes. DIAGNOSTIC IMPRESSION AND PLAN: 1. Patient with sacral pressure ulcer. Continue local wound care with [facility]. Keep the area dry and off pressure. 2. Patient with worsening of development of possibly clot. CBD stent ( ) repeat ERCP today despite any fever or worsening white count. Cultures will be done and antibiotics will be adjusted. MMODL / IJN: [id number] /
[2019-11-16 21:25] VITALS: RESP 18
[2019-11-17] MEDS: predniSONE 10 MG TAB PO SCH (07:32)
[2019-11-17] MEDS: PANTOPRAZOLE 40 MG TABLET PO SCH (07:32)
[2019-11-17] MEDS: FOLIC ACID 1 MG TAB PO SCH (07:32)
[2019-11-17] MEDS: AZITHROMYCIN 500 MG TAB PO SCH (07:32)
[2019-11-17] MEDS: MULTIVITAMINS, THERA 1 EACH TAB PO SCH (07:33)
[2019-11-17] MEDS: THIAMINE 100 MG TAB PO SCH (07:33)
[2019-11-17] MEDS: guaiFENesin 600 MG TABLET.ER PO SCH (07:33)
[2019-11-17] MEDS: LACTATED RINGERS 1,000 ML IV SCH (07:34)
[2019-11-17] MEDS: SYMBICORT 160-4.5 MCG INHALER INHALATION SCH (07:39)
[2019-11-17] MEDS: ALBUTEROL HFA INHALER INHALATION SCH ×2 (07:39→11:22)
[2019-11-17 10:14] LABS: Basophils % (A) 0 %; Eosinophils # (A) 0.1 k/uL (0-0.7); Eosinophils % (A) 1 %; HCT 34.5 % (39.0-53.0); HGB 10.9 gm/dL (13.0-17.5); Lymphocytes # (A) 0.4 k/uL (1.0-4.8); Lymphocytes % (A) 3 %; MCH 31.5 pg (25.0-35.0); MCHC 31.5 g/dL (31.0-37.0); Mean Platelet Volume 7.9; Monocytes # (A) 0.2 k/uL (0-1.0); Monocytes % (A) 2 %; Neutrophils # (A) 10.3 k/uL (1.3-7.7); Neutrophils % (A) 94 %; Platelet Count 357 k/uL (150-450); RBC 3.45 m/uL (4.30-5.90); RDW 13.9 % (11.5-15.5)
[2019-11-17 10:26] LABS: AST 160 U/L (17-59); African American GFR (CKD) >90 (>60 ml/min/1.73 sqM); Albumin 2.5 g/dL (3.5-5.0); Anion Gap 10 mmol/L; Blood Urea Nitrogen 17 mg/dL (9-20); Calcium 8.1 mg/dL (8.4-10.2); Carbon Dioxide 23 mmol/L (22-30); Chloride 100 mmol/L (98-107); Glucose 241 mg/dL (74-99); Non-African American GFR(CKD) >90 (>60 ml/min/1.73 sqM); Potassium 4.2 mmol/L (3.5-5.1); Sodium 133 mmol/L (137-145); Total Bilirubin 4.8 mg/dL (0.2-1.3); Total Protein 5.2 g/dL (6.3-8.2)
[2019-11-17 10:34] LABS: ALT 242 U/L (4-49)
[2019-11-17 11:15] LABS: Alkaline Phosphatase 1725 U/L (38-126)
--- NOTE | 2019-11-17 11:29 | P.PN ---
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 He continues to defer information regarding his medical conditions to his sister, whom I have spoke with. Pt denies fever, nausea, cheat pain, LAN, bad pain, his back hurts, he is weak and needs assistance to ambulate, he can feed himself, does have some trouble re-positioning himself. Objective - Vital Signs Vital signs: Vital Signs Temp 98.2 F 11/17/19 04:39 Pulse 83 11/17/19 04:39 Resp 18 11/17/19 04:39 BP 139/78 11/17/19 04:39 Pulse Ox 97 11/17/19 04:39 Intake & Output 11/16/19 11/17/19 11/17/19 18:59 06:59 18:59 Intake Total 2140 1100 Output Total 700 650 Balance 1440 450 Intake: IV 800 260 Sodium Chloride 0.9% 1, 260 000 ml @ 20 mls/hr IV . Q24H [place] Rx#:[id number] Intake, IV Titration 260 Amount Ampicillin-Sulbactam 1.5 50 gm In Sodium Chloride 0.9 % 50 ml @ 100 mls/hr IVPB ONCE ONE Rx#:[id number] Sodium Chloride 0.9% 1, 160 000 ml @ 20 mls/hr IV . Q24H [place] Rx#:[id number] cefTRIAXone 1 gm In 50 Sodium Chloride 0.9% 50 ml @ 100 mls/hr IVPB Q24HR [place] Rx#:[id number] Oral 1080 840 Output: Urine 700 650 Other: Voiding Method Urinal Urinal # Voids 1 1 # Bowel Movements 0 1 - Constitutional General appearance: Present: cooperative, no acute distress, thin - EENT Eyes: Present: EOMI, poor dentition, scleral icterus (certainly improved) ENT: Present: hearing grossly normal - Respiratory Respiratory: bilateral: CTA, diminished - Cardiovascular Heart sounds: normal: S1, S2 - Peripheral edema leg Peripheral Edema: bilateral: None - Gastrointestinal General gastrointestinal: Present: normal bowel sounds, soft - Integumentary Integumentary: Present: jaundiced - Musculoskeletal Musculoskeletal: Present: generalized weakness - Psychiatric Psychiatric: Present: A&O x's 3 - Allied health notes Allied health notes reviewed: case management - Labs CBC & Chem 7: 11/17/19 09:40 11/17/19 09:40 Labs: Abnormal Lab Results - Last 24 Hours (Table) 11/16/19 11/17/19 11/17/19 Range/Units 05:21 09:40 09:40 WBC 11.0 H (3.8-10.6) k/uL RBC 3.45 L (4.30-5.90) m/uL Hgb 10.9 L (13.0-17.5) gm/dL Hct 34.5 L (39.0-53.0) % Neutrophils # 10.3 H (1.3-7.7) k/uL Lymphocytes # 0.4 L (1.0-4.8) k/uL Sodium 133 L (137-145) mmol/L Creatinine 0.53 L (0.66-1.25) mg/dL Glucose 241 H (74-99) mg/dL Osmolality 279 L (280-301) mosm/kg Calcium 8.1 L (8.4-10.2) mg/dL Total Bilirubin 4.8 H (0.2-1.3) mg/dL AST 160 H (17-59) U/L ALT 242 H (4-49) U/L Alkaline Phosphatase 1725 H (38-126) U/L Total Protein 5.2 L (6.3-8.2) g/dL Albumin 2.5 L (3.5-5.0) g/dL - Imaging and Cardiology ERCP and GI procedure notes reviewed Assessment and Plan (1) 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 Standard of care is systemic treatment with [place] and [employer]-16, 3 days every 21 days. Liver obstruction has been relieved. Plan is for pt to go to rehab for severe weakness. Pt will not be considered for treatment unless he was able to get strong enough to leave rehab. Poorly differentiated small cell is typically an aggressive malignancy and without active treatment it will progress and hinder pt progress in rehab. Without active treatment prognosis is 3-4 mo in the best case scenario. All of the above was reviewed with his sister last evening. She continued to want rehab. Based on pt progress she will make further decision regarding care. We did discuss palliative/hospice. All her questions were answered to the best of my ability. Current Visit: Yes Status: Acute Priority: High Code(s): C7A.8 - OTHER MA LIGNANT NEUROENDOCRINE TUMORS; C7B.8 - OTHER SECONDARY NEUROENDOCRINE TUMORS SNOMED Code(s): 391970108 (2) Pancreatic mass Current Visit: Yes Status: Acute Priority: High Code(s): K86.89 - OTHER SPECIFIED DISEASES OF PANCREAS SNOMED Code(s): 601200798 (3) Biliary stent obstruction Narrative/Plan: Gastroenterology exchanged stent, pt looks significantly better today. Current Visit: Yes Status: Acute Priority: High Code(s): T85.590A - [facility] COMPL OF BILE DUCT PROSTHESIS, INITIAL ENCOUNTER SNOMED Code(s): 390370655 (4) Bone metastasis Narrative/Plan: Calcium normal. Patient may not be a candidate for bisphosphonate/Rank ligand inhibitors secondary to poor dentition. Single dose of aredia given. Radiation for painful metastases planned to reduce fracture risk. Current Visit: Yes Status: Acute Priority: High Code(s): C79.51 - SECONDARY MALIGNANT NEOPLASM OF BONE SNOMED Code(s): 84102538 (5) Pain due to malignant neoplasm metastatic to bone Narrative/Plan: Current pain meds seem to be managing pt pain. Aredia and XRT. Current Visit: Yes Status: Acute Priority: High Code(s): G89.3 - NEOPLASM RELATED PAIN (ACUTE) (CHRONIC); C79.51 - SECONDARY MALIGNANT NEOPLASM OF BONE SNOMED Code(s): 558719857 Plan: Path + for poorly differentiated neuroendocrine small cell (primary gastric vs pancreatic tumor invading gastric tissue) Treatment options limited with small cell, best response is typically 6-10 months. Second line does not have signifi cant duration of response. Pt PS and overall compromised health need to be accounted for. Spoke with sister re: this info. She verbalized understanding the situation.
[2019-11-17 11:39] VITALS: BP 117/67; TEMP 97.6
--- NOTE | 2019-11-17 12:35 | P.DS ---
Providers Date of admission: 11/08/19 13:55 Expected date of discharge: 11/17/19 Attending physician: Daisy Meyer Consults: 11/08/19 13:56 Consult Physician Routine Consulting Provider: Paul Tucker Consult Reason/Comments: Hyperbilirubinemia Do you want consulting provider notified?: Yes 11/08/19 15:01 Consult Physician Routine Consulting Provider: Octavio Farrell Consult Reason/Comments: copd Do you want consulting provider notified?: Yes 11/08/19 17:15 Consult Physician Routine Consulting Provider: Dennis Cristina Consult Reason/Comments: large coccyx wound Do you want consulting provider notified?: Yes 11/09/19 10:18 Consult Physician Routine Consulting Provider: Shan Carmen Consult Reason/Comments: Metastatic cancer, ? pancreas Do you want consulting provider notified?: Yes 11/12/19 16:02 Consult Physician Routine Consulting Provider: Garret Mckeon Consult Reason/Comments: bone mets Do you want consulting provider notified?: Already Contacted Primary care physician: Hyacinth Collado [facility] Course: Final diagnosis Obstructive jaundice with intra-and extrahepatic biliary dilatation, possibly secondary to pancreatic neoplasm, head of the pancreas Status post ERCP showing tight distal common bile duct stricture measuring 2 cm in length with proximal biliary dilation status post CBD stent placement with multiple raised lesions measuring 1-1.5 cm in size with central ulceration noted in the fundus of the stomach status post biopsies. Biopsies showing poorly differentiated neuroendocrine carcinoma small cell carcinoma. Oncology [facility]. Patient undergoing ERCP with stent removal and replacement for continued stricture and possible obstruction. GI following. Stage II sacral decubitus ulcer Covid 19 ruled out Chronic obstructive pulmonary disease, acute exacerbation, with acute purulent tracheobronchitis with possible sepsis, present on admission Hyponatremia Severe emaciation Possible metastatic malignancy with multiple lesions in the bones and also lymphadenopathy in the chest Anemia of chronic disease History of ethanol Hypertension History of anxiety History of ongoing continued nicotine dependence Severe protein calorie malnutrition with a body mass index of 16.5 History of recent weight loss Gait dysfunction Full code Discharge disposition Patient is being discharged in a stable condition with guarded prognosis to [facility] for continued PT/OT therapy. Patient will need to follow-up with multiple medical consultations in the outpatient setting. Patient is to continue with local wound care to the sacral decubitus ulcer with therahoney applied to the site. No further antibiotics are necessary at this time. Total time taken is 35 minutes. History of present illness This is a 59-year-old male who was recently admitted with significant weakness and diminished oral intake and was being closely monitored. Patient was found to have an elevated bilirubin and being closely followed by GI. Patient underwent ERCP with CBD stent placement and ultimately needed removal of the stent with replacement yesterday. Bilirubin much improved today. Patient will need outpatient labs in the next 2-3 days to monitor CMP and CBC. She was also noted to have a stage II decubitus ulcer of the sacral area and was treated adequately with antibiotics. Will need continued wound care to the ulcer with therahoney to the site daily or more frequently if soiled. Patient will need follow-up with wound care center with Dr. Cristina in the outpatient setting as well. Patient was seen and evaluated by oncology and also radiation oncology and will follow-up with them in the outpatient setting upon discharge. 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 Patient and family have been discussing about treatment options but feel he needs rehab for strength and mobility prior to initiation of any oncology treatments. Patient's prognosis is extremely guarded and poor at this time and family and patient are aware of this and discussed at length about this. Patient will be transferred to [facility] on the [place] for continued PT/OT therapy. Currently no reports of chest pain, shortness of breath, or palpitations. Patient is afebrile. No reports of nausea or vomiting and patient is tolerating diet. On exam vital signs are stable. Temp is 97.6F, pulse is 72, respirations are 18, blood pressure is 117/67, oxygen saturation is 96% on room air. Cardio S1, S2 are present. Respiratory system shows diminished breath sounds at the bases with no wheezing or rhonchi noted. Abdomen is soft, thin, and non-tender. Nervous system shows diffuse weakness. Please refer to medication reconciliation sheet for a list of medications. Patient Condition at Discharge: Stable Plan - Discharge Summary Discharge Rx Participant: Yes New Discharge Prescriptions: New Folic Acid 1 mg PO DAILY@1200 tab guaiFENesin [Mucinex] 600 mg PO Q12HR PRN tablet.er PRN Reason: Cough Multivitamins, Thera [Multivitamin (formulary)] 1 each PO DAILY@1200 tab HYDROcodone/APAP 5-325MG [[place] 5-325] 1 each PO Q6HR PRN #10 tab PRN Reason: Pain Pantoprazole [Protonix] 40 mg PO AC-BRKFST tablet. Budesonide-Formot 160-4.5 Mcg [Symbicort 160-4.5 Mcg Inhaler] 2 puff INHALATION RT-BID puff Albuterol Inhaler [Ventolin Hfa Inhaler] 2 puff INHALATION RT-QID puff Thiamine [Vitamin B-1] 100 mg PO DAILY@1200 tab Discharge Medication List Albuterol Inhaler [Ventolin Hfa Inhaler] 2 puff INHALATION RT-QID puff 11/17/19 [Rx] Budesonide-Formot 160-4.5 Mcg [Symbicort 160-4.5 Mcg Inhaler] 2 puff INHALATION RT-BID puff 11/17/19 [Rx] Folic Acid 1 mg PO DAILY@1200 tab 11/17/19 [Rx] HYDROcodone/APAP 5-325MG [[place] 5-325] 1 each PO Q6HR PRN #10 tab 11/17/19 [Rx] Multivitamins, Thera [Multivitamin (formulary)] 1 each PO DAILY@1200 tab 11/17/19 [Rx] Pantoprazole [Protonix] 40 mg PO AC-BRKFST tablet. 11/17/19 [Rx] Thiamine [Vitamin B-1] 100 mg PO DAILY@1200 tab 11/17/19 [Rx] guaiFENesin [Mucinex] 600 mg PO Q12HR PRN tablet.er 11/17/19 [Rx] Follow up Appointment(s)/Referral(s): Shan Carmen MD [STAFF PHYSICIAN] - 3 Weeks Tobias Claros MD [Primary Care Provider] - 11/24/19 9:40 am Paul Tucker MD [STAFF PHYSICIAN] - 3 Weeks Dennis Cristina MD [STAFF PHYSICIAN] - 1 Week Ambulatory/Diagnostic Orders: Complete Blood Count w/diff [LAB.AMB] Time Frame: 3 Days, Location: None Selected Comprehensive Metabolic Panel [LAB.AMB] Time Frame: 3 Days, Location: None Selected Activity/Diet/Wound Care/Special Instructions: Patient is going to [facility] on [address] Activity as tolerated Continue current diet, continue with ensure clear 3 times daily with meals Continue working with physical therapy for strength and mobility Follow-up with GI in the outpatient setting upon discharge Follow-up with oncology in the outpatient setting once discharged from rehab Repeat labs in 2-3 days Continue with local wound care to the sacral ulcer with applying therahoney daily to the site and remain offloading as much as possible. Change dressing more frequently if becomes soiled. Follow-up with wound center with Dr. Cristina in one week to 10 days Discharge Disposition: TRANSFER TO SNF/ECF
--- NOTE | 2019-11-17 12:43 | PN ---
PROGRESS NOTE PULMONARY/CRITICAL CARE PROGRESS NOTE: DATE OF SERVICE: 11/17/2019 A 59-year-old male who recently had a biopsy done which showed evidence of neuroendocrine carcinoma/small cell carcinoma. The patient was to have a repeat ERCP done yesterday. Currently the past is resting comfortably. He may be discharged to [facility] on the [facility] he tells us. He is not sure. Apparently he is not making any decisions for himself at this time. He is going to have his sister make decisions for him at this time. He denies any shortness of breath. Denies any cough or congestion. He denies any chest pain or chest discomfort. The patient is currently on room air. Not receiving any IV fluids. He has no particular complaints. According to Oncology, they were going to have radiation therapy see the patient for possible radiation to the bony metastasis. In addition, they talked about chemotherapy, but again the patient is not making any decisions and has deferred all the decisions to his sister. Current vital signs are reviewed. Temperature is 97.6, heart rate 72, respiratory rate 18, blood pressure 117/67 mean 83, room air saturation 98%. There is 1 small. The examination is unremarkable. Moist. NECK: Supple full range of motion. No adenopathy. Neck veins are flat. CARDIOVASCULAR: Examination reveals regular rhythm and rate. Heart rate 72. S1, S2 normal. No murmur. LUNGS: Reveal clear breath sounds. No wheezes, rhonchi, or crackles. ABDOMEN: Soft, bowel sounds are heard. No masses. EXTREMITIES: Intact. No cyanosis, clubbing, or edema. SKIN: Reveals evidence of jaundiced. He has scleral icterus as well. NEUROLOGIC: Examination is brief but nonfocal. LABS: Reviewed. White count 11, hemoglobin 10.9, hematocrit 34.5, platelet count 357,000, sodium 133, potassium 4.2, chloride 100, CO2 is 23, anion gap is 10, BUN and creatinine were 17 and 0.53. Calcium 8.1, bilirubin has come down nicely to 4.8, AST is 160, ALT 242, alkaline phosphate 17 25. TSH is normal. No recent x-ray. During the ERCP yesterday, the biliary stent was removed with a snare. The cholangiogram again revealed a distal common bile duct stricture with proximal dilatation of the duct. Placement of a plastic double flange. A good bile flow was noted afterwards. ASSESSMENT: 1. Pancreatic adenocarcinoma with metastasis to lung and bone. Status post ERCP with stent removal. Pathology reveals poorly differentiated neuroendocrine carcinoma/small cell carcinoma. 2. Mediastinal and right hilar adenopathy, likely metastatic from the patient's primary pancreatic carcinoma. 3. Left acetabular metastasis, with anticipated radiation therapy. 4. Pathologic compression fractures of L3 and L4 with moderate spinal canal stenosis. 5. Hydropic gallbladder. 6. Chronic and ongoing tobacco dependence. 7. History of chronic heavy and chronic. 8. Chronic heavy alcohol use. 9. Reviewed decubitus ulcer, and this can decubitus also of his coccyx. 10.Protein calorie malnutrition. 11.Elevated LFTs. 12.Hyperbilirubinemia, improved. 13.General medical debility. patient had a repeat ERCP yesterday. The other stent was removed at the end, a placement of a plastic double flange stent was placed with good bile flow. PLAN: Is continue with the plan the patient seems to be relatively stable at this time. His LFTs and bilirubin continued to decline. He mentions he may be discharged to [facility] on the [facility]. There is no confirmation of that. The patient also states that his sister will make all decisions for him as it relates to chemotherapy and/or radiation therapy. MMODL / IJN: [id number] /
[2019-11-17] MEDS: SODIUM CHLORIDE 0.9% 1,000 ML IV SCH (13:39)
[2019-11-17 14:51] VITALS: PULSE 70
--- NOTE | 2019-11-17 16:40 | PN ---
PROGRESS NOTE DATE OF SERVICE: 11/17/2019 REASON FOR FOLLOWUP: 1. Sacral pressure ulcer, stage III, no cellulitis. 2. Question of pneumonia. INTERVAL HISTORY: The patient is currently afebrile. He is breathing comfortably on room air. Denies having any chest pain or cough. No nausea, no vomiting. No abdominal pain. Pain to the sacral wound area. PHYSICAL EXAMINATION: Blood pressure 113/67 with a pulse of 72, temperature 97.6. He is 96% on room air description is a middle-aged male lying in bed in no distress respiratory system: Unlabored breathing clear to auscultation anteriorly heart S1, S2. Regular rate and rhythm. LABS: Hemoglobin is 10, white count 11.0 creatinine 0.53. Liver enzymes have improved. DIAGNOSTIC IMPRESSION AND PLAN: 1. Patient with sacral pressure ulcer stage III with no evidence of any secondary cellulitis. Plan is to finish therapy with local wound care with Medihoney followed by moist dressing keep the area dry and off pressure. 2. Patient with question of pneumonia, adequately treated. No need for antibiotic on discharge. MMODL / IJN: [id number] /
--- NOTE | 2019-11-17 21:22 | P.PN ---
Subjective Progress Note Date: 11/17/19 Principal diagnosis: Pancreatic mass, poorly differentiated neuroendocrine tumor, elevated bilirubin Patient is seen lying in bed today reporting that he is feeling somewhat better. Tolerating diet. No abdominal pain. Objective - Vital Signs Vital signs: Vital Signs Temp 98.2 F 11/17/19 04:39 Pulse 83 11/17/19 04:39 Resp 18 11/17/19 04:39 BP 139/78 11/17/19 04:39 Pulse Ox 97 11/17/19 04:39 Intake & Output 11/16/19 11/17/19 11/17/19 18:59 06:59 18:59 Intake Total 2140 1100 Output Total 700 650 Balance 1440 450 Intake: IV 800 260 Sodium Chloride 0.9% 1, 260 000 ml @ 20 mls/hr IV . Q24H [facility] Rx#:[id number] Intake, IV Titration 260 Amount Ampicillin-Sulbactam 1.5 50 gm In Sodium Chloride 0.9 % 50 ml @ 100 mls/hr IVPB ONCE ONE Rx#:[id number] Sodium Chloride 0.9% 1, 160 000 ml @ 20 mls/hr IV . Q24H [place] Rx#:[id number] cefTRIAXone 1 gm In 50 Sodium Chloride 0.9% 50 ml @ 100 mls/hr IVPB Q24HR [place] Rx#:[id number] Oral 1080 840 Output: Urine 700 650 Other: Voiding Method Urinal Urinal # Voids 1 # Bowel Movements 0 - Exam On physical examination, patient appears comfortable in no apparent distress. HEAD: Normocephalic, atraumatic. EYES: Scleral icterus. No conjunctival injection. MOUTH: No lesions, tongue midline. NECK: Trachea midline, no gross abnormalities. ABDOMEN: Soft, thin and nontender. Bowel sounds are positive. No organomegaly. No guarding or rigidity. EXTREMITIES: No pedal edema. SKIN: No rashes, jaundice. NEUROLOGIC: Alert and oriented x3. No focal deficits. - Labs CBC & Chem 7: 11/17/19 09:40 11/17/19 09:40 Labs: Abnormal Lab Results - Last 24 Hours (Table) 11/16/19 Range/Units 05:21 Osmolality 279 L (280-301) mosm/kg Assessment and Plan (1) Biliary stent obstruction Narrative/Plan: 51-year-old male who presented to the hospital with jaundice and dark colored urine found to have a pancreatic mass with endoscopic intervention with ERCP revealing a distal common bile duct stricture with proximal biliary dilation status post CBD stent placement. Liver enzymes have continued to trend upward likely related to stent occlusion. Cytology from CBD brushing and biopsies of the stomach and nodules which were seen consistent with poorly differentiated neuroendocrine tumor. Repeat ERCP yesterday with stent exchange with good biliary flow. Liver enzymes much improved today. Status: Acute Priority: High Code(s): T85.590A - [facility] COMPL OF BILE DUCT PROSTHESIS, INITIAL ENCOUNTER SNOMED Code(s): 486198490 (2) Hyperbilirubinemia Status: Acute Code(s): E80.6 - OTHER DISORDERS OF BILIRUBIN METABOLISM SNOMED Code(s): 75145317 (3) Pain due to malignant neoplasm metastatic to bone Status: Acute Priority: High Code(s): G89.3 - NEOPLASM RELATED PAIN (ACUTE) (CHRONIC); C79.51 - SECONDARY MALIGNANT NEOPLASM OF BONE SNOMED Code(s): 215860294 (4) Pancreatic mass Status: Acute Priority: High Code(s): K86.89 - OTHER SPECIFIED DISEASES OF PANCREAS SNOMED Code(s): 383861163 Plan: Supportive care Okay for diet Continue to monitor CBC, CMP Appreciate recommendations from radiation oncology and medical oncology Okay for discharge Patient will likely need referral to tertiary center for ERCP with placement of a metal stent Thank you for allowing us to participate in the care of the patient
== END 2019-11-17 14:40 | DRG 871 ==
LOC: EC 12:37 → 5NMEDONC 13:55
PROVIDERS: ADMIT Hospitalist; ATTEND Hospitalist
PROC: 0DB78ZX Excision of Stomach, Pylorus, Via Natural or Artificial Opening Endoscopic, Diagnostic (ICD-10-PCS; principal; 2019-11-10 09:10)
PROC: 0FD98ZX Extraction of Common Bile Duct, Via Natural or Artificial Opening Endoscopic, Diagnostic (ICD-10-PCS; principal; 2019-11-10 09:10)
PROC: 0F798DZ Dilation of Common Bile Duct with Intraluminal Device, Via Natural or Artificial Opening Endoscopic (ICD-10-PCS; principal; 2019-11-10 09:10)
PROC: 0F798DZ Dilation of Common Bile Duct with Intraluminal Device, Via Natural or Artificial Opening Endoscopic (ICD-10-PCS; 2019-11-16)
PROC: 0FPB8DZ Removal of Intraluminal Device from Hepatobiliary Duct, Via Natural or Artificial Opening Endoscopic (ICD-10-PCS; 2019-11-16)
DX: A41.9 Sepsis, unspecified organism (principal); E43 Unspecified severe protein-calorie malnutrition; G93.41 Metabolic encephalopathy; J18.9 Pneumonia, unspecified organism; B17.9 Acute viral hepatitis, unspecified; E87.1 Hypo-osmolality and hyponatremia; J44.0 Chronic obstructive pulmonary disease with (acute) lower respiratory infection; J44.1 Chronic obstructive pulmonary disease with (acute) exacerbation; K82.1 Hydrops of gallbladder; C7A.1 Malignant poorly differentiated neuroendocrine tumors; C7B.8 Other secondary neuroendocrine tumors; M84.48XA Pathological fracture, other site, initial encounter for fracture; R64 Cachexia; T85.590A Other mechanical complication of bile duct prosthesis, initial encounter; Z68.1 Body mass index [BMI] 19.9 or less, adult; D63.8 Anemia in other chronic diseases classified elsewhere; F10.20 Alcohol dependence, uncomplicated; F17.200 Nicotine dependence, unspecified, uncomplicated; G89.3 Neoplasm related pain (acute) (chronic); I10 Essential (primary) hypertension; I45.10 Unspecified right bundle-branch block; J20.9 Acute bronchitis, unspecified; Z20.828 Contact with and (suspected) exposure to other viral communicable diseases; K25.9 Gastric ulcer, unspecified as acute or chronic, without hemorrhage or perforation; K44.9 Diaphragmatic hernia without obstruction or gangrene; L89.152 Pressure ulcer of sacral region, stage 2; M48.061 Spinal stenosis, lumbar region without neurogenic claudication; Y73.2 Prosthetic and other implants, materials and accessory gastroenterology and urology devices associated with adverse incidents; Z63.8 Other specified problems related to primary support group; Z80.0 Family history of malignant neoplasm of digestive organs; Z82.3 Family history of stroke
CPT/HCPCS: 36415; 43239; 43274; 43276; 70450; 71046; 71260; 74177; 74330; 76705; 78306; 80053; 80306; 80320; 80329; 81003; 82550; 82570; 82607; 82728; 82746; 83540; 83550; 83605; 83735; 83880; 83930; 83935; 84300; 84443; 84484; 85025; 85027; 85610; 85730; 86301; 87040; 87070; 87205; 87635; 88104; 88305; 88341; 88342; 93005; 93970; 94640; 96374; 99285